=== PATIENT | male | born 1955 | race Caucasian/White ===

== ENCOUNTER 2017-10-03 16:31 | Emergency (ER) | payer OTHER ==
[2017-10-03 16:37] VITALS: TEMP 36.9
[2017-10-03] MEDS ORDERED: FRS/40 PO (17:35)
[2017-10-03] MEDS ORDERED: BISA1SUP4 RE (17:35)
[2017-10-03] MEDS ORDERED: SODIENE PR (17:35)
[2017-10-03] MEDS ORDERED: ACET-1256 PO (17:35)
[2017-10-03] MEDS ORDERED: SNTO30 TOP (17:35)
[2017-10-03] MEDS ORDERED: SENN-65 PO (17:35)
[2017-10-03] MEDS ORDERED: CEFT1INJ57 IV (17:35)
[2017-10-03] MEDS ORDERED: NSP500 PO (17:35)
[2017-10-03] MEDS ORDERED: LCTX PO (17:35)
[2017-10-03] MEDS ORDERED: INSDGI SC (17:35)
[2017-10-03] MEDS ORDERED: VANC1INJ94 IV (17:35)
[2017-10-03] MEDS ORDERED: CARV3.12 PO (17:35)
[2017-10-03] MEDS ORDERED: ASPCH81X PO (17:35)
[2017-10-03] MEDS ORDERED: DOCU100C31 PO (17:35)
[2017-10-03] MEDS ORDERED: PANT1TAB48 PO (17:35)
[2017-10-03] MEDS ORDERED: [UNRECOGNIZED DRUG - CODE] IV. (17:35)
[2017-10-03] MEDS ORDERED: NYSS/ PO (17:35)
[2017-10-03] MEDS ORDERED: ALBINS INH (17:35)
[2017-10-03] MEDS ORDERED: NVLGI/PEN SC ×2 (17:35)
[2017-10-03] MEDS ORDERED: POLY335019 PO (17:35)
[2017-10-03] MEDS ORDERED: DONE1TAB11 PO (17:35)
[2017-10-03] MEDS ORDERED: APIX1TAB3 PO (17:35)
[2017-10-03] MEDS ORDERED: MOMLX PO (17:35)
[2017-10-03 18:10] VITALS: BP 15/97; PULSE 58; O2SAT 98
--- NOTE | 2017-10-04 00:36 | EMERGENCY ROOM VISIT NOTE ---
ED Visit Note First contact with patient: 16:40 Chief Complaint: PICC line declogging. History of Present Illness: Mr. Welsh is a 62-year-old white male who is brought into the ED via wheelchair. Patient was transferred from [facility] for evaluation of his PICC line and a request to declog his PICC line. Patient reports he was receiving his antibiotics today and when completed nursing staff reported they were not able to aspirate any blood from the PICC line. He reports there was no complication when putting the medication into his PICC line. Currently patient has no other additional complaints. He denies fevers, chills, sweats, skin eruptions, skin color changes, headache, upper respiratory tract symptoms, cough, wheezing, shortness of breath, abdominal pain, nausea, vomiting, decreased appetite, urinary symptoms, diarrhea. Review of Systems: As noted above in history of present illness. 8 body systems were reviewed and found to be negative as noted above. Past Medical History: Genital debility and weakness, left hip dislocation, hypertension, ischemic cardiomyopathy, rhabdomyolysis, diabetes with diabetic retinopathy and chronic kidney disease, cholecystitis, atrial fibrillation, dyslipidemia, coronary artery disease with status post CABG and stent placement , dementia, C. difficile, oral thrush. Current Medications: Medications Dose Route/Sig Max Daily Dose Days Date Category Dose Instructions Santyl (Collagenase) 250 Unit/Gm Oin 1 Appln TOP DAILY 10/03/17 Reported AREA: BILAT INNER THIGHS. CLEANSE, APPLY THIN LAYER, COVER WITH FOAM. Albuterol Sulfate (Albuterol Sulf) 2.5 Mg/3 Ml Nebu 2.5 Mg INH Q4H 10/03/17 Reported Nystatin Suspension (Nystatin) 1 Ml Susp 500,000 Units PO QID 10/03/17 Reported STARTED 09/30/17 Fluconazole In Nacl 1 Inj Inj 200 Mg IV. DAILY 10/03/17 Reported STARTED 09/30/17, STOP 10/27/17. Lantus (Insulin Glargine) 100 Unit/Ml Inj 35 Units SC HS 10/03/17 Reported Lactinex (Lactobacillus Acidophilus) Tab 2 Tab PO BID 10/03/17 Reported Novolog Flexpen (Insulin Aspart) 100 Units/Ml Inj Unknown Dose SC ACHS 10/03/17 Reported SLIDING SCALE: BSG < 70 = HYPOGLYCEMIA PROTOCOL BSG 70-130 = 0 UNITS BSG 131-180 = 2 UNITS BSG 181-240 = 4 UNITS BSG 241-300 = 6 UNITS BSG 301-350 = 8 UNITS BSG 351-400 = 10 UNITS BSG > 400 = 12 UNITS AND CALL Tylenol (Acetaminophen) 500 Mg Tab 500 Mg PO Q4H PRN 10/03/17 Reported Miralax (Polyethylene Glycol 3350) 1 Pow Pow 17 Gm PO QDL PRN 10/03/17 Reported Senokot S (Senna/Docusate Sodium) 1 Tab Tab 1 Tab PO QDL PRN 10/03/17 Reported Fleet Enema (Sodium Phosphate/Biphosphate) Cleo 1 Ea ME DAILY PRN 10/03/17 Reported Bisacodyl Laxative (Bisacodyl) 10 Mg Sup 10 Mg RE DAILY PRN 10/03/17 Reported Milk of Magnesia (Magnesium Hydroxide) 30 Ml Susp 30 Ml PO DAILY PRN 10/03/17 Reported Docusate Sodium 100 Mg Cap 100 Mg PO BID 7 10/03/17 Reported Protonix (Pantoprazole) 40 Mg Tab 40 Mg PO DAILYBB 10/03/17 Reported VANCOMYCIN in NSS (Vancomycin HCl in Sodium Chlor) 1 Inj Inj 1 Gm IV DAILY QPM 10/03/17 Reported In 250 ml NSS, STARTED 09/29/17, STOP DATE 10/06/17. Niaspan Ext Rel (Niacin) 1,000 Mg Tabcr 1,000 Mg PO HS 10/03/17 Reported Rocephin (Ceftriaxone Sodium) 1 Gm Inj 2 Gm IV Q24H 10/03/17 Reported STARTED 09/29/17, STOP DATE 10/05/17. Coreg (Carvedilol) 3.125 Mg Tab 3.125 Mg PO BIDM 10/03/17 Reported Eliquis (Apixaban) 5 Mg Tab 5 Mg PO Q12 10/03/17 Reported Novolog Flexpen (Insulin Aspart) 100 Units/Ml Inj 4 Units SC TIDM 10/03/17 Reported Lasix (Furosemide) 40 Mg Tab 40 Mg PO QAM 10/03/17 Reported Donepezil Hcl (Donepezil Hydrochloride) 5 Mg Tab 5 Mg PO QAM 90 10/03/17 Reported Aspirin Chewable (Aspirin) 81 Mg Chew 81 Mg PO QAM 10/03/17 Reported Allergies to Medications: Augmentin. Social History: Patient is currently in a rehabilitation hospital; he denies tobacco and alcohol use. Physical Examination: Vital Signs: Date Time Temp Pulse Resp B/P (MAP) Pulse Ox O2 Delivery O2 Flow Rate FiO2 10/03/17 18:10 58 18 15/97 98 10/03/17 16:37 36.9 62 18 137/80 97 Room Air GENERAL: 62-year-old female in no acute distress, chronically ill-appearing, afebrile and hemodynamically stable. NEUROLOGICAL: Awake, alert and oriented to person, place and time. Answering questions appropriately and following commands. SKIN: Warm, dry and pale. HEENT: Atraumatic and normocephalic. PERRLA. Sclera white and conjunctiva pink. No drainage from naris. Airway patent. Speech is clear but slow. THORAX: Lungs sounds are clear to auscultation and mildly decrease in the bases. Equal bilaterally with symmetrical chest wall. No wheezing, rales or rhonchi. HEART: Regular rate and rhythm. No gallops, rubs or murmurs are appreciated. ABDOMEN: Obese, firm and nontender. Decreased bowel sounds in all quadrants. No guarding, rigidity or organomegaly. EXTREMITIES: Moves all extremities well on command and with purpose. All distal neurovascular statuses are intact and equal bilaterally. Bilateral dependent edema. No calf tenderness or cords. Over the right upper extremity is patient's PICC line. There is mild bruising of the skin around the entrance to the PICC line. ED Course: Patient is assessed as noted above. Patient's medication list was reviewed. The IV team was called to evaluate the PICC line; they reported the PICC line was patent and flushed with heparin. Patient was educated about today's findings. Patient was transferred back to [facility]. Clinical Impression: PICC line evaluation. Disposition: Patient transferred back to [facility]. Plan: [facility] was educated about today's findings. Was encouraged that the patient return emergency department as needed.
== END 2017-10-03 18:10 | disposition home or self-care (01) ==
LOC: C.EDB 16:31 → C.EDC 18:10
DX: Z45.2 Encounter for adjustment and management of vascular access device (principal); I12.9 Hypertensive chronic kidney disease with stage 1 through stage 4 chronic kidney disease, or unspecified chronic kidney disease; E11.22 Type 2 diabetes mellitus with diabetic chronic kidney disease; N18.9 Chronic kidney disease, unspecified; E11.319 Type 2 diabetes mellitus with unspecified diabetic retinopathy without macular edema; I48.91 Unspecified atrial fibrillation; I25.10 Atherosclerotic heart disease of native coronary artery without angina pectoris; Z95.1 Presence of aortocoronary bypass graft; Z98.61 Coronary angioplasty status; Z90.49 Acquired absence of other specified parts of digestive tract; F03.90 Unspecified dementia, unspecified severity, without behavioral disturbance, psychotic disturbance, mood disturbance, and anxiety; Z79.01 Long term (current) use of anticoagulants; Z79.4 Long term (current) use of insulin; Z79.82 Long term (current) use of aspirin; Z79.899 Other long term (current) drug therapy

== ENCOUNTER 2017-10-12 12:28 | Inpatient (IN) | payer OTHER ==
[~2017-10-12] VITALS: Ht 167.6 cm; Wt 126.6 kg
[~2017-10-12 12:28] MED LIST: ACET-1256 PO; ALBINS INH; APIX1TAB3 PO; ASPCH81X PO; BISA1SUP4 RE; CARV3.12 PO; CEFT1INJ57 IV; DOCU100C31 PO; DONE1TAB11 PO; FRS/40 PO; INSDGI SC; LCTX PO; MOMLX PO; NSP500 PO; NVLGI/PEN SC; NYSS/ PO; PANT1TAB48 PO; POLY335019 PO; SENN-65 PO; SNTO30 TOP; SODIENE PR; VANC1INJ94 IV; [UNRECOGNIZED DRUG - CODE] IV.
--- NOTE | 2017-10-12 12:42 | EMERGENCY ROOM VISIT NOTE ---
History Report prepared by Laura: Shanita Nelson Under the Supervision of: Dr. Santosh Anderson M.D. First contact with patient: 12:30 Stated Complaint: BREATHING DIFFICULTY History of Present Illness The patient is a 62 year old male who presents to the Emergency Room with complaints of worsening shortness of breath beginning 2 weeks ago. The patient states that he has also been wheezing. He also reports having swollen testicles. The patient reports that his ankles have been weeping and that his left arm sometimes does too. Per EMS, the patient was 100% on 2L of Oxygen. Per EMS, the patient does get short of breath when he starts talking. Per EMS, the patient was slightly confused. The patient states that he has been in [facility] for a week. The patient reports a history of cardiac arrest and a stent placed. Source of History: patient, EMS Onset: 2 weeks ago Position: other (global) Quality: other (shortness of breath ) Timing: worsening Note: additional symptoms: wheezing, swollen scrotum, weeping ankles and left arm Review of Systems All systems have been listed, reviewed, and are negative other than those previously mentioned. Please see Additional Medical History Sheet. Past Medical & Surgical Medical Problems: (1) Atrial fibrillation (2) Dementia (3) Diabetes (4) Fluid overload (5) Hyperlipidemia (6) Hypertension (7) Ischemic cardiomyopathy (8) Rhabdomyolysis (9) Scrotal edema Surgical Problems: (1) AICD (automatic cardioverter/defibrillator) present (2) Stented coronary artery Family History No pertinent family history stated. Social History Smoking Status: Former Smoker Housing Status: assisted living Current/Historical Medications Scheduled Albuterol Sulf (Albuterol Sulfate), 2.5 MG INH Q4H Apixaban (Eliquis), 5 MG PO Q12 Aspirin (Aspirin Chewable), 81 MG PO QAM Bumetanide (Bumex), 2 MG PO BID Carvedilol (Coreg), 3.125 MG PO BIDM Collagenase (Santyl), 1 APPLN TOP DAILY Docusate Sodium (Docusate Sodium), 100 MG PO BID Donepezil Hydrochloride (Donepezil Hcl), 5 MG PO QAM Fluconazole In Nacl (Fluconazole In Nacl), 200 MG IV. DAILY Insulin Aspart (Novolog Flexpen), 6 UNITS SC TIDM Insulin Aspart (Novolog Flexpen), Unknown Dose SC ACHS Insulin Glargine (Lantus), 40 UNITS SC HS Lactobacillus Acidophilus (Lactinex), 2 TAB PO BID Lidocaine (Lidoderm Patch 5%), 1 PATCH TOP QAM Niacin Ext Rel (Niaspan Ext Rel), 1,000 MG PO HS Nystatin (Nystatin Suspension), 500,000 UNITS PO QID Pantoprazole (Protonix), 40 MG PO DAILYBB Scheduled PRN Acetaminophen (Tylenol), 500 MG PO Q4H PRN for Pain or Fever Bisacodyl (Bisacodyl Laxative), 10 MG RE DAILY PRN for Constipation Magnesium Hydroxide (Milk of Magnesia), 30 ML PO DAILY PRN for Constipation Polyethylene Glycol 3350 (Miralax), 17 GM PO QDL PRN for Constipation Senna/Docusate Sod (Senokot S), 1 TAB PO QDL PRN for Constipation Sodium Phosphate/Biphosphate (Fleet Enema), 1 EA ID DAILY PRN for Constipation Allergies Coded Allergies: Amoxicillin (Verified Allergy, Unknown, UNKNOWN, 10/12/17) Clavulanic Acid (Verified Allergy, Unknown, UNKNOWN, 10/12/17) Physical Exam Vital Signs Date Time Temp Pulse Resp B/P (MAP) Pulse Ox O2 Delivery O2 Flow Rate FiO2 10/12/17 16:00 63 20 144/76 97 Room Air 10/12/17 13:50 67 24 136/79 93 Room Air 10/12/17 13:06 97 Room Air 10/12/17 13:03 36.5 66 22 130/83 97 Room Air 10/12/17 12:48 97 Room Air 10/12/17 12:42 65 Physical Exam GENERAL: Patient awake, alert, oriented x 3. Patient follows commands. Patient does not appear toxic. Patient is adequately hydrated and well- nourished. SKIN: No erythema, pallor, cyanosis or rash HEENT: Normal head, pupils equal, reactive to light and accommodation. Ears normal. Oral cavity and posterior pharynx appear normal. Neck: Without adenopathy, no neck vein distention. LUNGS: Bilateral wheezes right greater than left. No rales, no rhonchi. HEART: No murmurs. No gallops. Muffled heart sounds. ABDOMEN: No masses, no rebound, no hepatomegaly or splenomegaly. Erythema below umbilicus. Morbidly obese. Drain right upper quadrant. CHEST: Midline sternotomy scar. Pacemaker in left upper chest. EXTREMITIES: No signs of trauma. 4+ non-pitting pre-tibial edema. No calf or thigh tenderness. : Very edematous scrotum. NEUROLOGIC: Cranial nerves II-XII within normal limits. No gross motor sensory function deficits. Medical Decision & Procedures ER Provider Diagnostic Interpretation: Radiology results as stated below per my review and radiologist interpretation: CHEST ONE VIEW PORTABLE HISTORY: Short of breath. peripheral edema COMPARISON: None. FINDINGS: The heart is enlarged. Postoperative changes. Left-sided dual-chamber pacemaker. The tip of the right PICC is difficult to visualize due to motion artifact but likely resides within the SVC. Mild interstitial basilar thickening, right greater than left. This suggests developing asymmetric pulmonary edema. No pleural effusions. No pneumothorax. IMPRESSION: 1. Cardiomegaly with mild developing asymmetric pulmonary edema. 2. The tip of the right PICC is not well visualized due to motion artifact but likely resides within the SVC. Electronically signed by: Bud Cai M.D. 10/12/2017 2:17 PM Dictated Date/Time: 10/12/2017 2:15 PM Laboratory Results 10/12/17 13:30 Red Blood Count 3.03, Mean Corpuscular Volume 97.7, Mean Corpuscular Hemoglobin 30.4, Mean Corpuscular Hemoglobin Concent 31.1, Mean Platelet Volume 9.0, Neutrophils (%) (Auto) 65.7, Lymphocytes (%) (Auto) 20.8, Monocytes (%) (Auto) 8.2, Eosinophils (%) (Auto) 4.8, Basophils (%) (Auto) 0.2, Neutrophils # (Auto) 6.41, Lymphocytes # (Auto) 2.03, Monocytes # (Auto) 0.80, Eosinophils # (Auto) 0.47, Basophils # (Auto) 0.02 10/12/17 13:30 Test 10/12/17 13:30 White Blood Count 9.76 K/uL (4.8-10.8) Red Blood Count 3.03 M/uL (4.7-6.1) Hemoglobin 9.2 g/dL (14.0-18.0) Hematocrit 29.6 % (42-52) Mean Corpuscular Volume 97.7 fL (80-100) Mean Corpuscular Hemoglobin 30.4 pg (25-34) Mean Corpuscular Hemoglobin Concent 31.1 g/dl (32-36) Platelet Count 189 K/uL (130-400) Mean Platelet Volume 9.0 fL (7.4-10.4) Neutrophils (%) (Auto) 65.7 % Lymphocytes (%) (Auto) 20.8 % Monocytes (%) (Auto) 8.2 % Eosinophils (%) (Auto) 4.8 % Basophils (%) (Auto) 0.2 % Neutrophils # (Auto) 6.41 K/uL (1.4-6.5) Lymphocytes # (Auto) 2.03 K/uL (1.2-3.4) Monocytes # (Auto) 0.80 K/uL (0.11-0.59) Eosinophils # (Auto) 0.47 K/uL (0-0.5) Basophils # (Auto) 0.02 K/uL (0-0.2) RDW Standard Deviation 75.6 fL (36.4-46.3) RDW Coefficient of Variation 21.5 % (11.5-14.5) Immature Granulocyte % (Auto) 0.3 % Immature Granulocyte # (Auto) 0.03 K/uL (0.00-0.02) Nucleated RBC Absolute Count (auto) 0.05 K/uL (0-0) Nucleated Red Blood Cells % 0.5 % Anisocytosis PRESENT Prothrombin Time 14.3 SECONDS (9.0-12.0) Prothromb Time International Ratio 1.3 (0.9-1.1) Activated Partial Thromboplast Time 24.0 SECONDS (21.0-31.0) Partial Thromboplastin Ratio 0.9 Anion Gap 6.0 mmol/L (3-11) Est Creatinine Clear Calc Drug Dose 59.4 ml/min Estimated GFR () 49.0 Estimated GFR (Non- 42.3 BUN/Creatinine Ratio 32.1 (10-20) Calcium Level 8.6 mg/dl (8.5-10.1) Total Bilirubin 0.5 mg/dl (0.2-1) Aspartate Amino Transf (AST/SGOT) 24 U/L (15-37) Alanine Aminotransferase (ALT/SGPT) 21 U/L (12-78) Alkaline Phosphatase 158 U/L (45-117) Troponin I 0.038 ng/ml (0-0.045) Pro-B-Type Natriuretic Peptide 25950 pg/ml (0-900) Total Protein 6.8 gm/dl (6.4-8.2) Albumin 2.5 gm/dl (3.4-5.0) Globulin 4.3 gm/dl (2.5-4.0) Albumin/Globulin Ratio 0.6 (0.9-2) Laboratory results as stated above per my review. Medications Administered Medications (Trade) Dose Ordered Sig/Randa Route Start Time Stop Time Status Last Admin Dose Admin Heparin Sodium (Porcine) (Heparin 100 Unit/ml 5ml Flush) 5 ml STK-MED ONCE .ROUTE 10/12/17 13:15 10/12/17 13:16 DC 10/12/17 13:15 5 ML Heparin Sodium (Porcine) (Heparin 100 Unit/ml 5ml Flush) 5 ml STK-MED ONCE .ROUTE 10/12/17 13:40 10/12/17 13:41 DC 10/12/17 13:45 5 ML Furosemide (Lasix Inj) 80 mg STK-MED ONCE .ROUTE 10/12/17 13:40 10/12/17 13:41 DC 10/12/17 13:45 80 MG Morphine Sulfate (MoRPHine SULFATE INJ) 6 mg Q1H PRN IV 10/12/17 15:30 10/12/17 17:45 DC 10/12/17 16:01 6 MG Heparin Sodium (Porcine) (Heparin 100 Unit/ml 5ml Flush) 5 ml STK-MED ONCE .ROUTE 10/12/17 15:56 10/12/17 15:57 DC 10/12/17 15:56 5 ML ECG Indication: SOB/dyspnea Rate (beats per minute): 68 Rhythm: other (paced rhythm) Findings: nonspecific-ST abn, other (normal axis) ED Course 1232: Past medical records reviewed. The patient was evaluated in room C4. A complete history and physical examination was performed. 1315: Ordered Heparin Sodium (Porcine) 5 ml. 1340: Ordered Lasix Inj 80 mg, Heparin Sodium (Porcine) 5 ml. 1530: Ordered Morphine Sulfate 6 mg IV. 1546: Upon reevaluation, the patient is resting.I discussed today's findings with him. He verbalized agreement of the treatment plan. I spoke with Dr. Culver of the [facility] to evaluate the patient for further management. Medical Decision Nurses notes reviewed. Medical history sheet reviewed. Differential diagnosis includes but is not limited to: congestive heart failure, metabolic disorder, diabetes out of control, and pneumonia. The patient arrived with significant peripheral edema and scrotal edema. Multiple labs, EKG and imaging were obtained. Please see above. The patient has x-ray findings consistent with pulmonary edema. The patient is anemic. The patient was given IV Lasix. The patient will require further evaluation the hospital with IV diuretics. I discussed care with the patient and with the hospitalist. Medication Reconcilliation Current Medication List: was personally reviewed by me Blood Pressure Screening Patient's blood pressure: Normal blood pressure Consults Time Called: 1500 Consulting Physician: Dr. Culver- [place] Returned Call: [phone] Discussed the patient's case with Dr. Culver. The patient will be evaluated for further management. Impression Primary Impression: Pulmonary edema Scribe Attestation The scribe's documentation has been prepared under my direction and personally reviewed by me in its entirety. I confirm that the note above accurately reflects all work, treatment, procedures, and medical decision making performed by me. Departure Information Dispostion Being Evaluated By Hospitalist Referrals Raheem Richmond D.O. (PCP)
[2017-10-12] MEDS ORDERED: BUME2TAB3 PO (12:58)
[2017-10-12] MEDS ORDERED: NF656 TOP (12:58)
[2017-10-12] MEDS ORDERED: FUROSEMIDE INJ 80 MG in SYRINGE 0 ML IV ONE (13:30)
[2017-10-12] MEDS ORDERED: FUROSEMIDE 40 MG/4 ML VIAL ONE (13:40)
[2017-10-12 13:44] LABS: BASO % 0.2 %; BASO ABS # 0.02 K/uL (0-0.2); EOS % 4.8 %; HEMATOCRIT 29.6 % (42-52); IG% 0.3 %; LYMPH % 20.8 %; LYMPH ABS # 2.03 K/uL (1.2-3.4); MEAN CELL VOLUME 97.7 fL (80-100); MEAN CORPUSCULAR HEMOGLOBIN 30.4 pg (25-34); MEAN CORPUSCULAR HGB CONC 31.1 g/dl (32-36); MONO % 8.2 %; NEUT % 65.7 %; PLATELET COUNT 189 K/uL (130-400); RED BLOOD COUNT 3.03 M/uL (4.7-6.1); WHITE BLOOD COUNT 9.76 K/uL (4.8-10.8)
[2017-10-12 13:56] LABS: INR 1.3 (0.9-1.1); PARTIAL THROMBOPLASTIN RATIO 0.9; PROTHROMBIN TIME (PATIENT) 14.3 SECONDS (9.0-12.0)
[2017-10-12 14:00] LABS: BUN/CREATININE RATIO 32.1 (10-20); CALCIUM 8.6 mg/dl (8.5-10.1); CREATININE 1.69 mg/dl (0.60-1.40)
[2017-10-12 14:05] LABS: ALB/GLOB RATIO 0.6 (0.9-2)
[2017-10-12 14:12] LABS: ANISOCYTOSIS PRESENT; COMPLETE YES
--- NOTE | 2017-10-12 14:18 | DIAGNOSTIC IMAGING REPORT ---
CHEST ONE VIEW PORTABLE HISTORY: Short of breath. peripheral edema COMPARISON: None. FINDINGS: The heart is enlarged. Postoperative changes. Left-sided dual-chamber pacemaker. The tip of the right PICC is difficult to visualize due to motion artifact but likely resides within the SVC. Mild interstitial basilar thickening, right greater than left. This suggests developing asymmetric pulmonary edema. No pleural effusions. No pneumothorax. IMPRESSION: 1. Cardiomegaly with mild developing asymmetric pulmonary edema. 2. The tip of the right PICC is not well visualized due to motion artifact but likely resides within the SVC. Electronically signed by: Bud Cai M.D. 10/12/2017 2:17 PM Dictated Date/Time: 10/12/2017 2:15 PM
[2017-10-12] MEDS ORDERED: MoRPHine SULFATE 10 MG/ML CARP/VIAL IV PRN (15:30)
[2017-10-12] MEDS ORDERED: IV FLUIDS COMPLETED PRN (16:30)
[2017-10-12 17:02] LABS: URINE APPEARANCE CLEAR (CLEAR); URINE BILIRUBIN NEG (NEG); URINE COLOR YELLOW; URINE NITRITE NEG (NEG); URINE SPECIFIC GRAVITY 1.015 (1.000-1.030); UROBILINOGEN NEG (NEG); ZZUR CULT IF INDIC CLEAN CATCH NO
[2017-10-12 17:04] LABS: MANUAL MICROSCOPIC REQUIRED? NO; REVIEW REQ? NO
[2017-10-12] MEDS ORDERED: DOCUSATE SODIUM/SENNA 50/8.6MG TAB PO PRN (17:15)
[2017-10-12] MEDS ORDERED: POLYETHYLENE (MIRALAX) 17 GM PACK PO PRN (17:15)
[2017-10-12] MEDS ORDERED: MAGNESIUM HYDROXIDE SUSP 30 ML UDC PO PRN (17:15)
[2017-10-12] MEDS ORDERED: BISACODYL 10 MG SUPP PR PRN (17:15)
[2017-10-12] MEDS ORDERED: SOD PHOSPHATE/SOD BIPHOSPHATE ENEMA 132 ML BTL PR PRN (17:30)
--- NOTE | 2017-10-12 17:54 | DIAGNOSTIC IMAGING REPORT ---
VENOUS DOPPLER LWR EXT BILA HISTORY: Pain. Edema. bilateral lower extremity edema COMPARISON STUDY: None. FINDINGS: There is normal compressibility, flow, and augmentation within the bilateral lower extremity deep venous systems. IMPRESSION: No DVT within the right or left lower extremity. The above report was generated using voice recognition software. It may contain grammatical, syntax or spelling errors. Electronically signed by: Golden Machuca M.D. 10/12/2017 5:52 PM Dictated Date/Time: 10/12/2017 5:52 PM
--- NOTE | 2017-10-12 17:55 | DIAGNOSTIC IMAGING REPORT ---
(TESTICULAR) SCROTUM-CONT HISTORY: Pain. Edema. scrotal edema COMPARISON: None. FINDINGS: Right testis: Maximum dimension 3.8 cm. Normal vascular flow. Small hydrocele. Left testis: Maximum dimension 3.9 cm. Normal vascular flow. Small hydrocele. IMPRESSION: 1. Normal testes bilaterally. 2. Normal vascular flow to both testis. 3. Small bilateral hydroceles. The above report was generated using voice recognition software. It may contain grammatical, syntax or spelling errors. Electronically signed by: Golden Machuca M.D. 10/12/2017 5:54 PM Dictated Date/Time: 10/12/2017 5:53 PM
[2017-10-12] MEDS ORDERED: GLUCOSE 40% GEL 15 GM TUBE PO PRN ×2 (18:00→20:15)
[2017-10-12] MEDS ORDERED: GLUCOSE 10 TABS/TUBE PO PRN ×2 (18:00→20:15)
[2017-10-12] MEDS ORDERED: DEXTROSE 50% 50 ML SYR IV PRN ×2 (18:00→20:15)
[2017-10-12] MEDS ORDERED: GLUCAGON FOR INJ 1 MG VIAL SQ PRN ×2 (18:00→20:15)
[2017-10-12] MEDS: INSULIN ASPART 100 UNITS/ML 3 ML PEN SC SCH ×2 (18:35→21:00)
[2017-10-12] MEDS: CARVEDILOL 3.125 MG TAB PO SCH (18:35)
[2017-10-12] MEDS: FLUCONAZOLE / NSS 200 MG in PREMIXED NSS 100 ML IV SCH (18:36)
[2017-10-12 18:40] VITALS: BP 157/77; PULSE 68; TEMP 36.5; O2SAT 93; BMI 44.1
[2017-10-12 18:47] VITALS: O2SAT 94
--- NOTE | 2017-10-12 18:53 | History and Physical ---
History & Physical Date & Time of Service: Oct 12, 2017 at 18:48 Chief Complaint: Fluid Overload, Scrotal Edema Primary Care Physician: Raheem Richmond D.O. History of Present Illness Source: patient The patient is a 62-year-old male with an ischemic cardiomyopathy, ejection fraction 25% to 30%, who suffered a polymorphic ventricular tachycardia cardiac arrest while hospitalized to manage cholecystitis in [facility] and had implantation of a defibrillator subsequently during his hospitalization stay and workup in August 2017. Patient also s/p percutaneous drain of the gallbladder for the cholecystitis. As per family member, patient was supposed to get re-evaluated by outpatient cardiology to interrogate defibrillator before medical clearance for possible cholecystectomy. Patient continues to have the percutaneous drain. Patient also had subsequent medical evaluations at [facility] in [place] where patient had some form of scope down his throat as per patient and his family members for evaluation of chronic cough which is worsen by speaking. And more recently have been in rehab at [facility] where patient has been attempting ambulation with walker. As per review of [facility] records, patient was sent to the ER because of shortness of breath and also because of increased fluid overload of lower extremities and scrotal edema. When assessed in the ED, patient did not appear to have respiratory distress and speaking comfortably in full sentences. However, chest X ray shows Mild interstitial basilar thickening, right greater than left and radiographic impression of asymmetric pulmonary edema. Chest X ray also shows present of defibrillator and PICC line. However patient and patient's family primarily concerned of the swelling below the waist, the continued presence of the percutaneous drain, and general overall decline before previous hospitalization Past Medical/Surgical History Medical Problems: (1) Atrial fibrillation Status: Chronic (2) Dementia Status: Chronic (3) Diabetes Status: Chronic (4) Hyperlipidemia Status: Chronic (5) Hypertension Status: Chronic (6) Ischemic cardiomyopathy Status: Chronic (7) Rhabdomyolysis Status: Chronic Surgical Problems: (1) AICD (automatic cardioverter/defibrillator) present Status: Chronic (2) Stented coronary artery Status: Resolved Family History FH: CHF (congestive heart failure) FATHER Social History Smoking Status: Former Smoker Allergies Coded Allergies: Amoxicillin (Verified Allergy, Unknown, UNKNOWN, 10/12/17) Clavulanic Acid (Verified Allergy, Unknown, UNKNOWN, 10/12/17) Home Medications Scheduled Albuterol Sulf (Albuterol Sulfate), 2.5 MG INH Q4H Apixaban (Eliquis), 5 MG PO Q12 Aspirin (Aspirin Chewable), 81 MG PO QAM Bumetanide (Bumex), 2 MG PO BID Carvedilol (Coreg), 3.125 MG PO BIDM Collagenase (Santyl), 1 APPLN TOP DAILY Docusate Sodium (Docusate Sodium), 100 MG PO BID Donepezil Hydrochloride (Donepezil Hcl), 5 MG PO QAM Fluconazole In Nacl (Fluconazole In Nacl), 200 MG IV. DAILY Insulin Aspart (Novolog Flexpen), 6 UNITS SC TIDM Insulin Aspart (Novolog Flexpen), Unknown Dose SC ACHS Insulin Glargine (Lantus), 40 UNITS SC HS Lactobacillus Acidophilus (Lactinex), 2 TAB PO BID Lidocaine (Lidoderm Patch 5%), 1 PATCH TOP QAM Niacin Ext Rel (Niaspan Ext Rel), 1,000 MG PO HS Nystatin (Nystatin Suspension), 500,000 UNITS PO QID Pantoprazole (Protonix), 40 MG PO DAILYBB Scheduled PRN Acetaminophen (Tylenol), 500 MG PO Q4H PRN for Pain or Fever Bisacodyl (Bisacodyl Laxative), 10 MG RE DAILY PRN for Constipation Magnesium Hydroxide (Milk of Magnesia), 30 ML PO DAILY PRN for Constipation Polyethylene Glycol 3350 (Miralax), 17 GM PO QDL PRN for Constipation Senna/Docusate Sod (Senokot S), 1 TAB PO QDL PRN for Constipation Sodium Phosphate/Biphosphate (Fleet Enema), 1 EA AL DAILY PRN for Constipation Review of Systems Constitutional: No fever Eyes: No eye pain, No discharge ENT: No nasal symptoms, No sore throat, No trouble swallowing Respiratory: + cough, + shortness of breath, No sputum, No wheezing Cardiovascular: + edema, No chest pain, No palpitations Abdomen: No pain, No nausea, No vomiting, No diarrhea, No constipation Musculoskeletal: + swelling, No joint pain, No muscle pain, No calf pain Genitourinary - Male: No dysuria Neurologic: No paralysis Psychiatric: No substance abuse Endocrine: No fatigue Hematologic / Lymphatic: No abnormal bleeding/bruising Integumentary: No rash, No itch Physical Exam Vital Signs Date Time Temp Pulse Resp B/P (MAP) Pulse Ox O2 Delivery O2 Flow Rate FiO2 10/12/17 17:08 36.5 63 20 144/76 97 10/12/17 16:00 63 20 144/76 97 Room Air 10/12/17 13:50 67 24 136/79 93 Room Air 10/12/17 13:06 97 Room Air 10/12/17 13:03 36.5 66 22 130/83 97 Room Air 10/12/17 12:48 97 Room Air 10/12/17 12:42 65 General Appearance: no apparent distress, + obese Head: normocephalic, atraumatic Eyes: normal inspection, EOMI, sclerae normal ENT: normal ENT inspection, hearing grossly normal, pharynx normal Neck: supple, no JVD, trachea midline Respiratory/Chest: chest non-tender, lungs clear, no respiratory distress, no accessory muscle use Cardiovascular: regular rate, rhythm, no JVD Abdomen/GI: normal bowel sounds, non tender, soft, + pertinent finding ( percutanous drain over gallbladder area) Back: + pertinent finding (patient is very large and diifficulty to sit up or turn over for full skin exam of back) Extremities/Musculoskelatal: + pertinent finding (bilateral lower extremity edema and red rash on legs) Neurologic/Psych: alert, oriented x 3 Skin: + pertinent finding (bilateral lower extremity edema and red rash on legs ) Diagnostics Laboratory Results Results Past 24 Hours Test 10/12/17 13:30 10/12/17 16:52 Range/Units White Blood Count 9.76 4.8-10.8 K/uL Red Blood Count 3.03 4.7-6.1 M/uL Hemoglobin 9.2 14.0-18.0 g/dL Hematocrit 29.6 42-52 % Mean Corpuscular Volume 97.7 80-100 fL Mean Corpuscular Hemoglobin 30.4 25-34 pg Mean Corpuscular Hemoglobin Concent 31.1 32-36 g/dl Platelet Count 189 130-400 K/uL Mean Platelet Volume 9.0 7.4-10.4 fL Neutrophils (%) (Auto) 65.7 % Lymphocytes (%) (Auto) 20.8 % Monocytes (%) (Auto) 8.2 % Eosinophils (%) (Auto) 4.8 % Basophils (%) (Auto) 0.2 % Neutrophils # (Auto) 6.41 1.4-6.5 K/uL Lymphocytes # (Auto) 2.03 1.2-3.4 K/uL Monocytes # (Auto) 0.80 0.11-0.59 K/uL Eosinophils # (Auto) 0.47 0-0.5 K/uL Basophils # (Auto) 0.02 0-0.2 K/uL RDW Standard Deviation 75.6 36.4-46.3 fL RDW Coefficient of Variation 21.5 11.5-14.5 % Immature Granulocyte % (Auto) 0.3 % Immature Granulocyte # (Auto) 0.03 0.00-0.02 K/uL Nucleated RBC Absolute Count (auto) 0.05 0-0 K/uL Nucleated Red Blood Cells % 0.5 % Anisocytosis PRESENT Prothrombin Time 14.3 9.0-12.0 SECONDS Prothromb Time International Ratio 1.3 0.9-1.1 Activated Partial Thromboplast Time 24.0 21.0-31.0 SECONDS Partial Thromboplastin Ratio 0.9 Sodium Level 141 136-145 mmol/L Potassium Level 4.0 3.5-5.1 mmol/L Chloride Level 105 98-107 mmol/L Carbon Dioxide Level 30 21-32 mmol/L Anion Gap 6.0 3-11 mmol/L Blood Urea Nitrogen 54 7-18 mg/dl Creatinine 1.69 0.60-1.40 mg/dl Est Creatinine Clear Calc Drug Dose 59.4 ml/min Estimated GFR () 49.0 Estimated GFR (Non- 42.3 BUN/Creatinine Ratio 32.1 10-20 Random Glucose 91 70-99 mg/dl Calcium Level 8.6 8.5-10.1 mg/dl Total Bilirubin 0.5 0.2-1 mg/dl Aspartate Amino Transf (AST/SGOT) 24 15-37 U/L Alanine Aminotransferase (ALT/SGPT) 21 12-78 U/L Alkaline Phosphatase 158 45-117 U/L Troponin I 0.038 0-0.045 ng/ml Pro-B-Type Natriuretic Peptide 06317 0-900 pg/ml Total Protein 6.8 6.4-8.2 gm/dl Albumin 2.5 3.4-5.0 gm/dl Globulin 4.3 2.5-4.0 gm/dl Albumin/Globulin Ratio 0.6 0.9-2 Urine Color YELLOW Urine Appearance CLEAR CLEAR Urine pH 5.0 4.5-7.5 Urine Specific [place] 1.015 1.000-1.030 Urine Protein NEG NEG Urine Glucose (UA) NEG NEG Urine Ketones NEG NEG Urine Occult Blood NEG NEG Urine Nitrite NEG NEG Urine Bilirubin NEG NEG Urine Urobilinogen NEG NEG Urine Leukocyte Esterase NEG NEG Diagnostic Radiology CXR The heart is enlarged. Postoperative changes. Left-sided dual-chamber pacemaker. The tip of the right PICC is difficult to visualize due to motion artifact but likely resides within the SVC. Mild interstitial basilar thickening , right greater than left. This suggests developing asymmetric pulmonary edema. No pleural effusions. No pneumothorax Scrotal ultrasound 1. Normal testes bilaterally. 2. Normal vascular flow to both testis. 3. Small bilateral hydroceles. Lower extremity ultrasound No DVT within the right or left lower extremity EKG 68 beats per minute Probable Atrial fibrillation Low voltage QRS Impression Assessment and Plan The patient is a 62-year-old male with an ischemic cardiomyopathy, ejection fraction 25% to 30%, who suffered a polymorphic ventricular tachycardia cardiac arrest while hospitalized to manage cholecystitis in [facility] and had implantation of a defibrillator subsequently during his hospitalization stay and workup in August 2017. Patient also s/p percutaneous drain of the gallbladder for the cholecystitis. As per family member, patient was supposed to get re-evaluated by outpatient cardiology to interrogate defibrillator before medical clearance for possible cholecystectomy. Patient continues to have the percutaneous drain. Patient also had subsequent medical evaluations at [facility] in [place] where patient had some form of scope down his throat as per patient and his family members for evaluation of chronic cough which is worsen by speaking. And more recently have been in rehab at [facility] where patient has been attempting ambulation with walker. As per review of [facility] records, patient was sent to the ER because of shortness of breath and also because of increased fluid overload of lower extremities and scrotal edema. When assessed in the ED, patient did not appear to have respiratory distress and speaking comfortably in full sentences. However, chest X ray shows Mild interstitial basilar thickening, right greater than left and radiographic impression of asymmetric pulmonary edema. Chest X ray also shows present of defibrillator and PICC line. However patient and patient's family primarily concerned of the swelling below the waist, the continued presence of the percutaneous drain, and general overall decline before previous hospitalization Plan: Pulmonary edema?: perhaps from CHF, no fevers and may not be a pneumonia, send procalcitonin to rule out pneumonia, no antibiotics for now, patient breathing on room air comfortably Lower extremity edema: DVT ruled out by ultrasound Scrotal edema, ultrasound performed Fluid overload treatment: IV Lasix 80 mg x 1 given in the ER, will continue IV Lasix as 40 mg IV BID, replete electrolytes while on IV Lasix, hold home dose oral diuretics daily weights: as per [facility] records, patient's weights fluctuating between 305 to 310 kilograms history ischemic cardiomyopathy, ejection fraction 25% to 30%, repeat TTE, continue home dose aspirin and carvedilol morbid obesity with cardiac disease (history of CABG/stent), give heart healthy , low salt diet, fluid restriction, diabetes diet monitor on telemetry because of history of cardiac arrest may need cardiology involved for interrogation of defibrillator while in the hospital vs outpatient History of cholecystitis: percutaneous drain of the gallbladder is in place. As per family member, patient was supposed to get re-evaluated by outpatient cardiology to interrogate defibrillator before medical clearance for possible cholecystectomy History of atrial fibrillation on outpatient Apixaban (Eliquis) 5 mg q12 hours ( might have been on Xarelto in the past), continue Apixaban Diabetes: continue with home dosed Lantus, give sliding scale coverage based on fingerstick glucose On donepezil at [facility] for dementia but patient appears to be alert and not mentally impaired, continue donepezil As per [facility] records, patient has been on Nystatin 5 ml QID PO and Diflucan 200 mg IV daily starting 09/30/17; this is unclear whether this is for oral rick versus fungemia elsewhere especially because of presence of percutaneous drainage from gallbladder, Dr. Caldwell will need to call [facility] for the medical indications of this treatment History of C.difficile as per [facility] records, but appears no longer to be on C.diff medications and no diarrhea complaints Patient reports history of ulcers on back and require would care, topical collagenase, and being turned over by nursing to prevent more pressure ulcers DVT prophylaxis: continue outpatient medication of Apixaban (Eliquis) 5 mg q12 hours Disposition: Patient to be further managed by Dr. Caldwell. Patient will need PT/ OT, likely return to [facility] for further rehab when medically cleared Level of Care Telemetry VTE Prophylaxis VTE Risk Assessment Done? Y/N: Yes Risk Level: Moderate Given or contraindicated: Other Anticoagulation (apixaban)
[2017-10-12 19:33] VITALS: PULSE 82; O2SAT 95
[2017-10-12] MEDS: ALBUTEROL 0.083% NEBU SOLN 3 ML VIAL INH SCH ×2 (19:33→23:33)
[2017-10-12] MEDS: FUROSEMIDE INJ 40 MG in SYRINGE 0 ML IV SCH (20:50)
[2017-10-12] MEDS: DOCUSATE SODIUM 100 MG CAP PO SCH (20:53)
[2017-10-12] MEDS: NYSTATIN SUSP 500,000 U/5 ML UDC PO SCH (20:53)
[2017-10-12] MEDS: LACTOBACILLUS ACIDOPHILUS (FLORANEX) TAB PO SCH (20:53)
[2017-10-12] MEDS: APIXABAN 2.5 MG TAB PO SCH (20:53)
[2017-10-12] MEDS: NIASPAN 500 MG TABCR PO SCH (20:54)
[2017-10-12] MEDS: INSULIN GLARGINE SOLOSTAR 100 UNITS/ML 3 ML PEN SC SCH (20:56)
[2017-10-12] MEDS: ACETAMINOPHEN 500 MG TAB PO PRN (21:06)
[2017-10-12] MEDS ORDERED: HEPARIN SOD 5000 UNIT/0.5 ML CARP SQ SCH (22:00)
[2017-10-12 23:30] VITALS: BP 139/59; PULSE 61; TEMP 36.6; O2SAT 94
[2017-10-12 23:33] VITALS: PULSE 68; O2SAT 95
[2017-10-13] VITALS (18 sets, daily range): BP systolic 109–154; BP diastolic 61–76; PULSE 60–86; TEMP 36.5–36.6; O2SAT 91–99; Ht 167.6 cm; Wt 126.6 kg
[2017-10-13] MEDS: ALBUTEROL 0.083% NEBU SOLN 3 ML VIAL INH SCH ×6 (04:00→23:02)
[2017-10-13] MEDS: PANTOprazole SOD 40 MG TAB PO SCH (05:32)
[2017-10-13 06:00] LABS: BASO % 0.2 %; BASO ABS # 0.02 K/uL (0-0.2); EOS % 7.2 %; HEMATOCRIT 27.6 % (42-52); IG% 0.2 %; LYMPH % 21.1 %; LYMPH ABS # 1.84 K/uL (1.2-3.4); MEAN CELL VOLUME 99.3 fL (80-100); MEAN CORPUSCULAR HEMOGLOBIN 29.5 pg (25-34); MEAN CORPUSCULAR HGB CONC 29.7 g/dl (32-36); MEAN PLATELET VOLUME 8.3 fL (7.4-10.4); MONO % 8.2 %; NEUT % 63.1 %; PLATELET COUNT 171 K/uL (130-400); RED BLOOD COUNT 2.78 M/uL (4.7-6.1); WHITE BLOOD COUNT 8.74 K/uL (4.8-10.8)
[2017-10-13 06:40] LABS: BUN/CREATININE RATIO 30.1 (10-20); CALCIUM 8.2 mg/dl (8.5-10.1); CREATININE 1.62 mg/dl (0.60-1.40); MAGNESIUM 1.8 mg/dl (1.8-2.4); POTASSIUM 3.7 mmol/L (3.5-5.1)
[2017-10-13 06:43] LABS: ALB/GLOB RATIO 0.6 (0.9-2)
[2017-10-13 06:48] LABS: ANISOCYTOSIS PRESENT; COMPLETE YES
[2017-10-13] MEDS: INSULIN ASPART 100 UNITS/ML 3 ML PEN SC SCH ×5 (07:00→21:27)
--- NOTE | 2017-10-13 08:32 | ECHOCARDIOGRAM REPORT ---
*NOTICE TO RECEIVING LIBERTARIAN AGENCY This information is strictly Confidential and protected under [place] law. [place] law prohibits you from making any further disclosure of this information unless further disclosure is expressly permitted by the written consent of the person to whom it pertains or is authorized by law. A general authorization for the release of medical or other information is not sufficient for this purpose. Hospital accepts no responsibility if the information is made available to any other person, INCLUDING THE PATIENT. Interpretation Summary * Name: FRANCISCA MORALES Study Date: 10/13/2017 06:44 AM BP: 109/66 mmHg * Patient Location: C.2E\S\E206\S\1 HR: 63 * : 1955 (M/d/yyyy) Gender: Male Height: 65 in * Age: 62 yrs Ethnicity: [place] Weight: 306 lb * Ordering Physician: Vitaliy Culver * Referring Physician: Julianna Oquendo * Performed By: Emily Hollis RDCS * * Reason For Study: Fluid overload of extremities and scrotal edema * BSA: 2.4 m2 * -- Conclusions -- * The left ventricle is severely dilated. * Ejection Fraction = 35-40%. * The right ventricle is grossly normal size. * The right ventricular systolic function is normal. * Pulmonary hypertension. Estimated pulmonary systolic pressure around 50-55 mmHG. * There is moderate mitral regurgitation. * There is moderate tricuspid regurgitation. Procedure Details * A complete two-dimensional transthoracic echocardiogram was performed (2D, M-mode, Doppler and color flow Doppler). * The study was technically difficult. * The study was technically difficult, but visualization was adequate with the administration of Definity ultrasound contrast. * There were technical limitations due to patient'sbody habitus * A contrast injection of Definity was performed to improve assessment of LV function. * Contrast was injected into an intravenous site in the right arm. * Lot # [id number] of Definity utilized for procedure. * Expiration date 1DEC18. * The attending nurse who injected the contrast agent was Kalpana Romero RN. Left Ventricle * The left ventricle is severely dilated. * There is mild concentric left ventricular hypertrophy. * Ejection Fraction = 35-40%. Right Ventricle * There is a pacemaker lead in the right ventricle. * The right ventricle is grossly normal size. * The right ventricular systolic function is normal. * Pulmonary hypertension. Estimated pulmonary systolic pressure around 50-55 mmHG. Atria * The left atrium is moderately dilated. * The right atrium is moderately dilated. Mitral Valve * The mitral valve anatomy is normal. * There is moderate mitral regurgitation. Tricuspid Valve * The tricuspid valve anatomy is normal. * There is moderate tricuspid regurgitation. Aortic Valve * The aortic valve is normal in structure and function. Great Vessels * The aortic root and proximal ascending aorta are normal sized. Pericardium/Pleural * There is no pericardial effusion. MMode 2D Measurements and Calculations IVSd 1.2 cm IVSs 1.3 cm LVIDd 6.7 cm LVIDs 5.5 cm LVPWd 1.1 cm LVPWs 1.3 cm IVS/LVPW 1.1 FS 17.6 % EDV(Teich) 230.5 ml ESV(Teich) 148.3 ml EF(Teich) 35.7 % EDV(cubed) 299.3 ml ESV(cubed) 167.6 ml EF(cubed) 44.0 % % IVS thick 7.8 % % LVPW thick 19.2 % LV mass(C)d 349.0 grams LV mass(C)dI 147.3 grams/m\S\2 LV mass(C)s 299.7 grams LV mass(C)sI 126.4 grams/m\S\2 SV(Teich) 82.3 ml SI(Teich) 34.7 ml/m\S\2 SV(cubed) 131.7 ml SI(cubed) 55.6 ml/m\S\2 Ao root diam 3.0 cm Ao root area 7.3 cm\S\2 ACS 2.3 cm LA dimension 4.6 cm LA/Ao 1.5 LVAd ap4 35.3 cm\S\2 LVLd ap4 8.7 cm EDV(MOD-sp4) 124.8 ml EDV(sp4-el) 121.9 ml LVAs ap4 26.3 cm\S\2 LVLs ap4 7.9 cm ESV(MOD-sp4) 77.9 ml ESV(sp4-el) 74.9 ml EF(MOD-sp4) 37.6 % EF(sp4-el) 38.6 % LVAd ap2 24.2 cm\S\2 LVLd ap2 7.9 cm EDV(MOD-sp2) 64.6 ml EDV(sp2-el) 63.2 ml LVAs ap2 16.2 cm\S\2 LVLs ap2 6.8 cm ESV(MOD-sp2) 36.2 ml ESV(sp2-el) 33.1 ml EF(MOD-sp2) 44.0 % EF(sp2-el) 47.6 % LVLd %diff -10.11 % EDV(MOD-bp) 93.2 ml LVLs %diff -16.35 % ESV(MOD-bp) 56.9 ml EF(MOD-bp) 38.9 % SV(MOD-sp4) 46.9 ml SI(MOD-sp4) 19.8 ml/m\S\2 SV(MOD-sp2) 28.4 ml SI(MOD-sp2) 12.0 ml/m\S\2 SV(MOD-bp) 36.3 ml SI(MOD-bp) 15.3 ml/m\S\2 SV(sp4-el) 47.1 ml SI(sp4-el) 19.9 ml/m\S\2 SV(sp2-el) 30.1 ml SI(sp2-el) 12.7 ml/m\S\2 Doppler Measurements and Calculations MV E max rosario 58.3 cm/sec MV A max rosario 40.8 cm/sec MV E/A 1.4 MV dec time 0.20 sec Ao V2 max 75.1 cm/sec Ao max PG 2.3 mmHg Ao max PG (full) 0.29 mmHg LV V1 max PG 2.0 mmHg LV V1 max 70.1 cm/sec PA V2 max 87.1 cm/sec PA max PG 3.0 mmHg PI max rosario 154.9 cm/sec PI max PG 9.6 mmHg PI dec slope 143.8 cm/sec\S\2 PI P1/2t 315.5 msec TR max rosario 301.7 cm/sec
[2017-10-13] MEDS: FUROSEMIDE INJ 40 MG in SYRINGE 0 ML IV SCH ×2 (08:42→21:19)
[2017-10-13] MEDS: CARVEDILOL 3.125 MG TAB PO SCH ×2 (08:42→17:15)
[2017-10-13] MEDS: COLLAGENASE OINT 30 GM TUBE EXT SCH (08:42)
[2017-10-13] MEDS: DONEPEZIL HCL 5 MG TAB PO SCH (08:43)
[2017-10-13] MEDS: LACTOBACILLUS ACIDOPHILUS (FLORANEX) TAB PO SCH ×2 (08:43→21:22)
[2017-10-13] MEDS: NYSTATIN SUSP 500,000 U/5 ML UDC PO SCH ×4 (08:43→21:19)
[2017-10-13] MEDS: DOCUSATE SODIUM 100 MG CAP PO SCH ×3 (08:43→21:18)
[2017-10-13] MEDS: APIXABAN 2.5 MG TAB PO SCH ×2 (08:44→21:19)
[2017-10-13] MEDS: ASPIRIN 81 MG CHEW PO SCH (08:44)
[2017-10-13] MEDS: LIDODERM (LIDOCAINE) PATCH 5% TD SCH (08:46)
--- NOTE | 2017-10-13 09:25 | Progress Note ---
Internal Med Progress Note Date of Service: Oct 13, 2017. Provider Documentation: SUBJECTIVE: Seen and examined at bedside States having SOB with minimal exertion, dry cough Denies chest pain, nausea, vomiting, dizziness, abd pain, diarrhea Had PT this morning Also denies Dysphagia, odynophagia No other complaints OBJECTIVE: Vital Signs-as noted below Physical Exam: General Appearance:Obese, no apparent distress Head: normocephalic, Atraumatic Eyes: normal inspection, EOMI, PERRL Neck: supple, Trachea midline Respiratory/Chest:Decreased breath sounds, CTA Cardiovascular: S1, S2, No murmur Abdomen/GI:Soft, +Distended, Non tender, + percutaneous drain RUQ, Bowel sounds present : scrotal swelling Extremities/Musculoskelatal:normal inspection, B/L LE edema, +Bandage Neurologic/Psych:AAOX3, grossly no focal neurological deficits Skin: normal color, warm Lab data as noted below. ASSESSMENT & PLAN: Acute on chronic CHF exacerbation s/p ICD H/O Ischemic Cardiomyopathy ECHO: EF: 35-40% as below CXR:Cardiomegaly with mild developing asymmetric pulmonary edema Elevated BNP Venous Doppler: No DVT Reports dry cough, no fever/leukocytosis, no Abx for now Saturating well on room air I/0s, daily weight, sodium and fluid restriction Continue IV Lasix Monitor electrolytes Cardiology consulted Saturating well on room air Scrotal swelling: Small bilateral hydroceles Oxygen support PRN Continue coreg Was not on NELY/ARBs ?? secondary to CKD Requested for Interrogation of ICD CAD S/P CABG Denies chest pain continue Aspirin, BB Not on stains at home H/O cholecystitis: S/P percutaneous drain Needs follow up with surgery as outpatient for cholecystectomy as outpatient Denies abd pain Monitor LFTs H/O atrial fibrillation: Rate controlled Continue Coreg continue Apixaban for anticoagulation DM II: Continue ISS, Lantus Monitor BS levels CKD III: Cr:mid 2s at baseline Cr:1.62 Monitor renal function ? Dementia: Continue home dose of donepezil Oral Thrush: Was on Nystatin 5 ml QID PO and Diflucan 200 mg IV daily prior to admission started on 09/30/17 Discussed with (Physician at [facility]) Patient denies dysphagia/odynophagia Plan to DC Nystatin, Diflucan after completing 2 week course H/O C.diff: No on any meds prior to admission recheck stool for c.diff denies diarrhea, abd pain B/L Leg wounds Wound care consulted Morbid Obesity: BMI:44.2 DVT px: on Apixaban Disposition: Plan to discharge to [facility] when medically cleared PROCEDURES: ECHO: * The left ventricle is severely dilated. * Ejection Fraction = 35-40%. * The right ventricle is grossly normal size. * The right ventricular systolic function is normal. * Pulmonary hypertension. Estimated pulmonary systolic pressure around 50- 55 mmHG. * There is moderate mitral regurgitation. * There is moderate tricuspid regurgitation. Vital Signs: Date Time Temp Pulse Resp B/P (MAP) Pulse Ox O2 Delivery O2 Flow Rate FiO2 10/13/17 08:00 95 Room Air 10/13/17 07:44 36.5 78 18 154/67 (96) 97 2.0 10/13/17 07:25 63 26 95 Nasal Cannula 2.0 10/13/17 04:00 Room Air 10/13/17 03:40 36.5 62 16 109/66 (80) 98 Nasal Cannula 3.0 10/13/17 03:30 67 18 95 Nasal Cannula 2.0 10/12/17 23:59 Room Air 10/12/17 23:33 68 18 95 Room Air 10/12/17 23:30 36.6 61 21 139/59 (85) 94 Room Air 10/12/17 20:00 Room Air 10/12/17 19:33 82 18 95 Room Air 10/12/17 18:47 94 Room Air 10/12/17 18:40 36.5 68 22 157/77 93 Room Air 10/12/17 17:08 36.5 63 20 144/76 97 10/12/17 16:00 63 20 144/76 97 Room Air 10/12/17 13:50 67 24 136/79 93 Room Air 10/12/17 13:06 97 Room Air 10/12/17 13:03 36.5 66 22 130/83 97 Room Air 10/12/17 12:48 97 Room Air 10/12/17 12:42 65 Lab Results: Results Past 24 Hours Test 10/12/17 13:30 10/12/17 16:52 10/12/17 18:30 10/12/17 20:01 Range/Units White Blood Count 9.76 4.8-10.8 K/uL Red Blood Count 3.03 4.7-6.1 M/uL Hemoglobin 9.2 14.0-18.0 g/dL Hematocrit 29.6 42-52 % Mean Corpuscular Volume 97.7 80-100 fL Mean Corpuscular Hemoglobin 30.4 25-34 pg Mean Corpuscular Hemoglobin Concent 31.1 32-36 g/dl Platelet Count 189 130-400 K/uL Mean Platelet Volume 9.0 7.4-10.4 fL Neutrophils (%) (Auto) 65.7 % Lymphocytes (%) (Auto) 20.8 % Monocytes (%) (Auto) 8.2 % Eosinophils (%) (Auto) 4.8 % Basophils (%) (Auto) 0.2 % Neutrophils # (Auto) 6.41 1.4-6.5 K/uL Lymphocytes # (Auto) 2.03 1.2-3.4 K/uL Monocytes # (Auto) 0.80 0.11-0.59 K/uL Eosinophils # (Auto) 0.47 0-0.5 K/uL Basophils # (Auto) 0.02 0-0.2 K/uL RDW Standard Deviation 75.6 36.4-46.3 fL RDW Coefficient of Variation 21.5 11.5-14.5 % Immature Granulocyte % (Auto) 0.3 % Immature Granulocyte # (Auto) 0.03 0.00-0.02 K/uL Nucleated RBC Absolute Count (auto) 0.05 0-0 K/uL Nucleated Red Blood Cells % 0.5 % Anisocytosis PRESENT Prothrombin Time 14.3 9.0-12.0 SECONDS Prothromb Time International Ratio 1.3 0.9-1.1 Activated Partial Thromboplast Time 24.0 21.0-31.0 SECONDS Partial Thromboplastin Ratio 0.9 Sodium Level 141 136-145 mmol/L Potassium Level 4.0 3.5-5.1 mmol/L Chloride Level 105 98-107 mmol/L Carbon Dioxide Level 30 21-32 mmol/L Anion Gap 6.0 3-11 mmol/L Blood Urea Nitrogen 54 7-18 mg/dl Creatinine 1.69 0.60-1.40 mg/dl Est Creatinine Clear Calc Drug Dose 59.4 ml/min Estimated GFR () 49.0 Estimated GFR (Non- 42.3 BUN/Creatinine Ratio 32.1 10-20 Random Glucose 91 70-99 mg/dl Calcium Level 8.6 8.5-10.1 mg/dl Total Bilirubin 0.5 0.2-1 mg/dl Aspartate Amino Transf (AST/SGOT) 24 15-37 U/L Alanine Aminotransferase (ALT/SGPT) 21 12-78 U/L Alkaline Phosphatase 158 45-117 U/L Troponin I 0.038 0-0.045 ng/ml Pro-B-Type Natriuretic Peptide 37074 0-900 pg/ml Total Protein 6.8 6.4-8.2 gm/dl Albumin 2.5 3.4-5.0 gm/dl Globulin 4.3 2.5-4.0 gm/dl Albumin/Globulin Ratio 0.6 0.9-2 Urine Color YELLOW Urine Appearance CLEAR CLEAR Urine pH 5.0 4.5-7.5 Urine Specific [place] 1.015 1.000-1.030 Urine Protein NEG NEG Urine Glucose (UA) NEG NEG Urine Ketones NEG NEG Urine Occult Blood NEG NEG Urine Nitrite NEG NEG Urine Bilirubin NEG NEG Urine Urobilinogen NEG NEG Urine Leukocyte Esterase NEG NEG Bedside Glucose 105 115 70-99 mg/dl Test 10/13/17 05:31 10/13/17 06:29 Range/Units White Blood Count 8.74 4.8-10.8 K/uL Red Blood Count 2.78 4.7-6.1 M/uL Hemoglobin 8.2 14.0-18.0 g/dL Hematocrit 27.6 42-52 % Mean Corpuscular Volume 99.3 80-100 fL Mean Corpuscular Hemoglobin 29.5 25-34 pg Mean Corpuscular Hemoglobin Concent 29.7 32-36 g/dl Platelet Count 171 130-400 K/uL Mean Platelet Volume 8.3 7.4-10.4 fL Neutrophils (%) (Auto) 63.1 % Lymphocytes (%) (Auto) 21.1 % Monocytes (%) (Auto) 8.2 % Eosinophils (%) (Auto) 7.2 % Basophils (%) (Auto) 0.2 % Neutrophils # (Auto) 5.51 1.4-6.5 K/uL Lymphocytes # (Auto) 1.84 1.2-3.4 K/uL Monocytes # (Auto) 0.72 0.11-0.59 K/uL Eosinophils # (Auto) 0.63 0-0.5 K/uL Basophils # (Auto) 0.02 0-0.2 K/uL RDW Standard Deviation 77.3 36.4-46.3 fL RDW Coefficient of Variation 21.7 11.5-14.5 % Immature Granulocyte % (Auto) 0.2 % Immature Granulocyte # (Auto) 0.02 0.00-0.02 K/uL Nucleated RBC Absolute Count (auto) 0.04 0-0 K/uL Nucleated Red Blood Cells % 0.4 % Anisocytosis PRESENT Sodium Level 143 136-145 mmol/L Potassium Level 3.7 3.5-5.1 mmol/L Chloride Level 106 98-107 mmol/L Carbon Dioxide Level 30 21-32 mmol/L Anion Gap 7.0 3-11 mmol/L Blood Urea Nitrogen 49 7-18 mg/dl Creatinine 1.62 0.60-1.40 mg/dl Est Creatinine Clear Calc Drug Dose 58.1 ml/min Estimated GFR () 51.6 Estimated GFR (Non- 44.5 BUN/Creatinine Ratio 30.1 10-20 Random Glucose 61 70-99 mg/dl Calcium Level 8.2 8.5-10.1 mg/dl Magnesium Level 1.8 1.8-2.4 mg/dl Total Bilirubin 0.5 0.2-1 mg/dl Aspartate Amino Transf (AST/SGOT) 19 15-37 U/L Alanine Aminotransferase (ALT/SGPT) 19 12-78 U/L Alkaline Phosphatase 136 45-117 U/L Total Protein 6.2 6.4-8.2 gm/dl Albumin 2.3 3.4-5.0 gm/dl Globulin 3.9 2.5-4.0 gm/dl Albumin/Globulin Ratio 0.6 0.9-2 Bedside Glucose 76 70-99 mg/dl Microbiology Results 10/12/17 MRSA DNA Surveillance Screen - Final, Complete Specimen Negative for MRSA by DNA Probe
[2017-10-13] MEDS ORDERED: SPIRONOLACTONE 25 MG TAB PO ONE (10:30)
--- NOTE | 2017-10-13 11:08 | CARDIOLOGY CONSULTATION ---
DATE OF CONSULTATION: 10/13/2017 REFERRING PHYSICIAN[facility] REASON FOR CONSULTATION: Heart failure. HISTORY OF PRESENT ILLNESS: This is a 62-year-old male patient with a history of ischemic cardiomyopathy and an estimated left ventricular ejection fraction around 25%-30%. He is status post coronary artery bypass surgery in 2003 and received stents in 2004. He has a history of diabetes with chronic kidney disease, morbid obesity with obstructive sleep apnea, early dementia, Leiden factor V deficiency on chronic anticoagulation and hypertension. Sometime in August, he presented to [facility] with right upper quadrant discomfort and bradycardia. He was sent to [facility], where he was found to have acute cholecystitis. There were plans for cholecystectomy, but prior to that surgery, he had a cardiac arrest. He was worked up with a cardiac catheterization, which showed significant coronary artery disease, but the need for medical management. He developed acute on chronic renal failure. He had a prolonged hospital stay at [facility] and a cholecystectomy was put off until a later date. He did receive a ICD during his admission at [facility]. He was then transferred to [facility], where he has been convalescing. He was transferred to [facility] from [facility] due to evidence of edema. Upon presentation here, he is massively volume overloaded and then heart failure with associated chronic renal failure. The patient is sitting comfortably in a chair. He is able to answer questions and has no general complaints this morning. ALLERGIES: AMOXICILLIN AND CLAVULANIC ACID. PAST MEDICAL HISTORY: As outlined above, the patient has ischemic heart disease with ischemic cardiomyopathy and chronic systolic heart failure. His last estimated left ventricular ejection fraction was around 25%-30%. In 2003, he underwent coronary artery bypass surgery and then in 2004, received coronary stents. I do not have the most recent record of his cardiac catheterization while in [place], but according to the notes, he was found to have significant coronary artery disease recently that was deemed medical management only. After his cardiac arrest at [facility], he received an ICD. He has been treated for diabetes, hypertension and hyperlipidemia. He has Leiden factor V deficiency and is on chronic anticoagulation. He has diabetes with diabetic nephropathy, history of hypertension and dyslipidemia. He is listed as having early dementia, but when I interviewed him today, he was alert and oriented x3. FAMILY MEDICAL HISTORY: Noncontributory. SOCIAL HISTORY: The patient is a former smoker. REVIEW OF SYSTEMS: A 10-point review of systems is negative except for the history of chief complaint. PHYSICAL EXAMINATION: GENERAL: He is alert and oriented. He is morbidly obese and sitting in a chair. VITAL SIGNS: Blood pressure is 140/70 and pulse is regular at 70 beats per minute. He is afebrile. HEENT: He is normocephalic. Pupils are equal and reactive to light. Extraocular muscles are intact bilaterally. NECK: The neck veins are flat. Carotids have good upstrokes bilaterally without bruits. Thyroid is nonpalpable. RESPIRATORY: Breath sounds are equal. The patient has rales at the base of his lungs and rhonchi. CARDIOVASCULAR: Heart has a regular rhythm. No systolic murmurs. No S3 or S4. GASTROINTESTINAL: Abdomen is obese, soft, and nontender without organomegaly. EXTREMITIES: Have edema x4. NEUROLOGIC: Grossly intact. SKIN: Warm to touch. LYMPH NODES: Negative to palpation. LABORATORY DATA: Hemoglobin is 9.2 on admission. Potassium is 4.0. Creatinine is 1.69. BUN is 54. IMPRESSION: 1. Acute on chronic systolic heart failure. 2. Ischemic cardiomyopathy. 3. Cardiorenal syndrome with diabetic nephropathy. 4. Diabetes mellitus. 5. Previous coronary artery bypass and coronary stents. 6. Obesity with sleep apnea. RECOMMENDATIONS: The patient will have to be diuresed and I would continue the Lasix 40 mg twice daily to see what his response is. He may ultimately benefit from the addition of Aldactone. I will give him a single dose today; however, I do want to start him on Entresto and I will not continue this medication after today. He will be started on Entresto, the reduced dose to be titrated per response. I think it would also be beneficial for us to have nephrology see him because as we diurese him, I suspect that his renal function is not going to improve, but may ultimately get worse because of the dilutional effect on his creatinine.
[2017-10-13] MEDS: ACETAMINOPHEN 500 MG TAB PO PRN (14:12)
--- NOTE | 2017-10-13 15:49 | NEPHROLOGY CONSULTATION ---
DATE OF CONSULTATION: 10/13/2017 DATE OF CONSULTATION: 10/13/2017 REFERRING PHYSICIAN: [facility] hospitalist and solution consultant. REASON FOR CONSULT: Chronic kidney disease with cardiorenal syndrome. HISTORY OF PRESENT ILLNESS: The patient is a 62-year-old male with a history of severe ischemic cardiomyopathy with left ventricular ejection fraction of around 25%. He also has a significant history of kidney disease with both CKD at baseline, but also in the recent past, he has had numerous episodes of acute renal failure with a creatinine as high as 5. The patient was brought to the hospital from [facility] because of massive lower extremity edema which according to the family has been increasing as well as scrotal edema. According to the who seems extremely knowledgeable and accurate with all the history of the patient including the creatinine, weight, diuretics dosing and I would absolutely trust the patient and his . He most recently had a hospital admission at [facility] for cholecystitis. He had a percutaneous drain. He also had a defibrillator implanted. The patient still has a percutaneous drain. The patient has always been on some dose of diuretics. According to the he was on 120 daily of Lasix and metolazone 3 times a week for more than 8 years. This dose was very stable until July 2017 when he started having multiple problems and with that the diuretics dosing has been all over the place. It appears he was getting Bumex 2 mg twice daily at the [facility]. The patient has some shortness of breath but he definitely has massive lower extremity edema, anasarca. BNP is elevated. Chest x-ray shows some pulmonary edema. He has already been seen by cardiology. So far, he has received 80 mg of IV Lasix yesterday and then 40 this morning and with that he has made 675 mL of urine yesterday and 1025 today. He has also been given 1 dose of spironolactone as well as started on Entresto by cardiology. As for Lasix he is written to have 40 mg IV twice daily. PAST MEDICAL AND SURGICAL HISTORY: Chronic atrial fibrillation, type 2 diabetes with nephropathy, hyperlipidemia, hypertension, ischemic cardiomyopathy with an EF of 25%. Recent history of acute renal failure with a peak creatinine of 5, status post AICD, coronary artery disease with stenting, recent placement of percutaneous drain at the gallbladder for acute cholecystitis, chronic kidney disease previously stage III, but more recently worse. FAMILY HISTORY: Positive for congestive heart failure, smoking positive in the past. ALLERGIES: AMOXICILLIN AND CLAVULANIC ACID. MEDICATIONS: Most recent medication list from [facility] was reviewed in detail. With special interest of nephrology he is getting Bumex 2 mg twice daily. REVIEW OF SYSTEMS: No fever, no eye pain, no discharge. He does have cough. He does have shortness of breath. He does have orthopnea. He has significant lower extremity edema all the way extending to upper thigh as well as lower abdomen. No chest pain, no palpitation. Abdomen -- No nausea, vomiting, or diarrhea. He does not have any dysuria or hematuria. PHYSICAL EXAMINATION: GENERAL APPEARANCE: Alert and oriented, he is morbidly obese and he is lying in the bed at 30 degree angle. VITAL SIGNS: Blood pressure is 144/74, 98% on room air. HEAD, EYES, EARS, NOSE, AND THROAT: Normocephalic, atraumatic. NECK: Veins hard to assess given his short obese neck. RESPIRATORY: Bilateral crackles at the bases as well as occasional rhonchi. CARDIOVASCULAR: Regular rhythm, no murmurs, rubs or gallop. ABDOMEN: Obese, soft. He does have abdominal wall edema. EXTREMITIES: 4+ edema extending all the way to the upper thigh as well as abdomen. LABORATORY DATA: Sodium 143, potassium 3.7, BUN 49, creatinine 1.6, calcium 8.2. ProBNP about 20,000. Chest x-ray shows pulmonary edema. Venous Doppler looks negative. ASSESSMENT AND PLAN: 1. Acute on chronic systolic heart failure, decompensated. 2. Chronic kidney disease stage III with very fluctuating baseline creatinine in the last few months secondary to intermittent acute illnesses. 3. Recent acute renal failure with a peak creatinine of 5, obesity with sleep apnea. RECOMMENDATIONS: At this time, patient clearly has anasarca. He has 4+ lower extremity edema in legs as well as extending all the way to his scrotum and abdomen. He definitely needs to be diuresed aggressively. I would aim for at least 2 liter negative per day. I do not think we are achieving quite that much with the current dose of Lasix 40 IV twice daily. He was already getting Bumex 2 mg twice daily, so the current dose is not a whole lot more than that. I would recommend to increase her dose of Lasix to 80 mg IV twice daily. I would hold off on the Aldactone for the time being. He has been started on Entresto also so it may be too much to start all of the medication as well as aggressive diuresis at the same time. We can do a stepwise approach with diuresis first and then using other drugs. Continue daily labs. The current creatinine of 1.6 is misleading. His true creatinine is much higher. He has significant dilutional effect with anasarca and I expect the creatinine to go higher as we diurese, but that is acceptable and permissible. MTDD
[2017-10-13] MEDS: FLUCONAZOLE / NSS 200 MG in PREMIXED NSS 100 ML IV SCH (19:55)
[2017-10-13] MEDS: SACUBITRIL-VALSARTAN 24-26 MG TAB PO SCH (21:20)
[2017-10-13] MEDS: NIASPAN 500 MG TABCR PO SCH (21:21)
[2017-10-13] MEDS: INSULIN GLARGINE SOLOSTAR 100 UNITS/ML 3 ML PEN SC SCH (21:28)
[2017-10-13] MEDS: MoRPHine SULFATE 2 MG/ML CARP IV PRN (23:34)
[2017-10-14] VITALS (16 sets, daily range): BP systolic 117–153; BP diastolic 56–68; PULSE 60–105; TEMP 36.4–36.9; O2SAT 89–100
[2017-10-14] MEDS: ALBUTEROL 0.083% NEBU SOLN 3 ML VIAL INH SCH ×6 (03:21→23:02)
[2017-10-14 05:58] LABS: HEMATOCRIT 29.6 % (42-52); MEAN CELL VOLUME 100.3 fL (80-100); MEAN CORPUSCULAR HEMOGLOBIN 29.8 pg (25-34); MEAN CORPUSCULAR HGB CONC 29.7 g/dl (32-36); MEAN PLATELET VOLUME 8.4 fL (7.4-10.4); PLATELET COUNT 168 K/uL (130-400); RED BLOOD COUNT 2.95 M/uL (4.7-6.1); WHITE BLOOD COUNT 9.92 K/uL (4.8-10.8)
[2017-10-14] MEDS: PANTOprazole SOD 40 MG TAB PO SCH (06:04)
[2017-10-14 06:31] LABS: BUN/CREATININE RATIO 27.4 (10-20); CALCIUM 8.1 mg/dl (8.5-10.1); CREATININE 1.66 mg/dl (0.60-1.40); MAGNESIUM 1.8 mg/dl (1.8-2.4); POTASSIUM 3.9 mmol/L (3.5-5.1)
[2017-10-14] MEDS: BOOST VANILLA PUDDING CUP PO SCH ×2 (08:36→16:34)
[2017-10-14] MEDS: ASPIRIN 81 MG CHEW PO SCH (08:36)
[2017-10-14] MEDS: FUROSEMIDE INJ 40 MG in SYRINGE 0 ML IV SCH ×2 (08:36→19:49)
[2017-10-14] MEDS: DOCUSATE SODIUM 100 MG CAP PO SCH ×2 (08:36→19:49)
[2017-10-14] MEDS: NYSTATIN SUSP 500,000 U/5 ML UDC PO SCH ×3 (08:36→16:35)
[2017-10-14] MEDS: LACTOBACILLUS ACIDOPHILUS (FLORANEX) TAB PO SCH ×2 (08:36→19:50)
[2017-10-14] MEDS: APIXABAN 2.5 MG TAB PO SCH ×2 (08:36→19:50)
[2017-10-14] MEDS: DONEPEZIL HCL 5 MG TAB PO SCH (08:37)
[2017-10-14] MEDS: CARVEDILOL 3.125 MG TAB PO SCH ×2 (08:37→16:35)
[2017-10-14] MEDS: SACUBITRIL-VALSARTAN 24-26 MG TAB PO SCH ×2 (08:37→19:51)
[2017-10-14] MEDS: LIDODERM (LIDOCAINE) PATCH 5% TD SCH (08:38)
[2017-10-14] MEDS: INSULIN ASPART 100 UNITS/ML 3 ML PEN SC SCH ×4 (08:45→20:37)
[2017-10-14] MEDS: COLLAGENASE OINT 30 GM TUBE EXT SCH (08:45)
[2017-10-14] MEDS ORDERED: SPIRONOLACTONE 25 MG TAB PO SCH (09:00)
--- NOTE | 2017-10-14 09:45 | Progress Note ---
Internal Med Progress Note Date of Service: Oct 14, 2017. Provider Documentation: SUBJECTIVE: Seen and examined at bedside Feels better today Ambulating better Reports dry cough Less SOB No diarrhea Denies chest pain, nausea, vomiting, dizziness, abd pain No other complaints OBJECTIVE: Vital Signs-as noted below Physical Exam: General Appearance:Obese, no apparent distress Head: normocephalic, Atraumatic Eyes: normal inspection, EOMI, PERRL Neck: supple, Trachea midline Respiratory/Chest:Decreased breath sounds, CTA Cardiovascular: S1, S2, No murmur Abdomen/GI:Soft, +Distended, Non tender, + percutaneous drain RUQ, Bowel sounds present : scrotal swelling Extremities/Musculoskelatal:normal inspection, B/L LE edema, +Bandage Neurologic/Psych:AAOX3, grossly no focal neurological deficits Skin: normal color, warm Lab data as noted below. ASSESSMENT & PLAN: Anasarca Acute on chronic CHF exacerbation s/p ICD H/O Ischemic Cardiomyopathy ECHO: EF: 35-40% as below CXR:Cardiomegaly with mild developing asymmetric pulmonary edema BNP trending down Venous Doppler: No DVT Reports dry cough, no fever/leukocytosis, no Abx for now Incentive Spirometry Encouraged to ambulate Saturating well on room air I/0s, daily weight, sodium and fluid restriction Continue IV Lasix per Cardiology/Nephrology Monitor electrolytes Appreciate Cardiology/Nephrology Input Scrotal swelling: Small bilateral hydroceles Oxygen support PRN Continue coreg Also started on Entresto Interrogation of ICD done CAD S/P CABG Denies chest pain continue Aspirin, BB Not on stains at home H/O cholecystitis: S/P percutaneous drain Needs follow up with surgery as outpatient for cholecystectomy as outpatient Denies abd pain Monitor LFTs H/O atrial fibrillation: Rate controlled Continue Coreg continue Apixaban for anticoagulation DM II: Continue ISS, Lantus Monitor BS levels CKD III: Cr:mid 2s at baseline Cr:1.62>>1.66 Cr low likely secondary to dilutional from anasarca Monitor renal function ? Dementia: Continue home dose of donepezil Oral Thrush: Was on Nystatin 5 ml QID PO and Diflucan 200 mg IV daily prior to admission started on 09/30/17 Discussed with (Physician at [facility]) Patient denies dysphagia/odynophagia To complete 2 week course of Nystatin, Diflucan H/O C.diff: No on any meds prior to admission recheck stool for c.diff if diarrhea denies diarrhea, abd pain B/L Leg wounds Wound care consulted Morbid Obesity: BMI:44.2 DVT px: on Apixaban Disposition: Plan to discharge to [facility] when medically cleared PROCEDURES: ECHO: * The left ventricle is severely dilated. * Ejection Fraction = 35-40%. * The right ventricle is grossly normal size. * The right ventricular systolic function is normal. * Pulmonary hypertension. Estimated pulmonary systolic pressure around 50- 55 mmHG. * There is moderate mitral regurgitation. * There is moderate tricuspid regurgitation. Vital Signs: Date Time Temp Pulse Resp B/P (MAP) Pulse Ox O2 Delivery O2 Flow Rate FiO2 10/14/17 08:04 36.5 65 24 147/66 (93) 100 Nasal Cannula 3.0 10/14/17 08:00 94 Room Air 10/14/17 07:21 105 20 95 Nasal Cannula 3.0 10/14/17 04:00 97 Nasal Cannula 2.0 10/14/17 03:21 62 20 97 Nasal Cannula 2.0 10/14/17 02:46 36.5 62 16 130/68 (88) 97 Nasal Cannula 10/13/17 23:59 97 Nasal Cannula 2.0 10/13/17 23:17 36.6 60 16 134/61 (85) 97 Nasal Cannula 1.5 10/13/17 23:02 60 20 96 Nasal Cannula 2.0 10/13/17 20:00 95 Nasal Cannula 2.0 10/13/17 19:50 36.5 71 20 148/65 (92) 94 Nasal Cannula 2.0 10/13/17 19:10 77 20 92 Nasal Cannula 2.0 10/13/17 16:25 94 Nasal Cannula 2.0 10/13/17 16:00 91 Nasal Cannula 2.0 10/13/17 15:42 36.6 62 22 150/76 (100) 99 Nasal Cannula 2.0 10/13/17 14:27 68 22 98 Room Air 10/13/17 12:00 94 Room Air 10/13/17 11:42 36.6 72 20 144/74 (97) 96 10/13/17 11:24 86 24 95 Room Air Lab Results: Results Past 24 Hours Test 10/13/17 11:19 10/13/17 16:17 10/13/17 20:18 10/14/17 05:35 Range/Units Bedside Glucose 158 224 190 70-99 mg/dl White Blood Count 9.92 4.8-10.8 K/uL Red Blood Count 2.95 4.7-6.1 M/uL Hemoglobin 8.8 14.0-18.0 g/dL Hematocrit 29.6 42-52 % Mean Corpuscular Volume 100.3 80-100 fL Mean Corpuscular Hemoglobin 29.8 25-34 pg Mean Corpuscular Hemoglobin Concent 29.7 32-36 g/dl RDW Standard Deviation 76.8 36.4-46.3 fL RDW Coefficient of Variation 21.5 11.5-14.5 % Platelet Count 168 130-400 K/uL Mean Platelet Volume 8.4 7.4-10.4 fL Nucleated RBC Absolute Count (auto) 0.07 0-0 K/uL Nucleated Red Blood Cells % 0.7 % Sodium Level 138 136-145 mmol/L Potassium Level 3.9 3.5-5.1 mmol/L Chloride Level 102 98-107 mmol/L Carbon Dioxide Level 28 21-32 mmol/L Anion Gap 8.0 3-11 mmol/L Blood Urea Nitrogen 46 7-18 mg/dl Creatinine 1.66 0.60-1.40 mg/dl Est Creatinine Clear Calc Drug Dose 57.3 ml/min Estimated GFR () 50.1 Estimated GFR (Non- 43.2 BUN/Creatinine Ratio 27.4 10-20 Random Glucose 142 70-99 mg/dl Calcium Level 8.1 8.5-10.1 mg/dl Magnesium Level 1.8 1.8-2.4 mg/dl Pro-B-Type Natriuretic Peptide 44829 0-900 pg/ml Test 10/14/17 07:17 Range/Units Bedside Glucose 129 70-99 mg/dl
--- NOTE | 2017-10-14 12:24 | Cardiology Follow-Up ---
Subjective Subjective Date of Service: Oct 14, 2017. Pt evaluation today including: conversation w/ patient, physical exam, chart review, lab review, review of studies, review of inpatient medication list Additional Details: Pt seen and examined, states that he's feeling better from admission. Nursing reports improved ambulation this AM. States breathing not back to baseline yet and still with significant edema but improved. Denies cp, palpitations, lightheadedness or dizziness. Tele reviewed: sinus rhythm without arrhythmia or significant ectopy Problem List Medical Problems: (1) Pulmonary edema Status: Acute Review of Systems Respiratory: + shortness of breath, + dyspnea on exertion, No see HPI, No cough , No sputum, No wheezing, No dyspnea at rest, No hemoptysis, No problem reported Cardiac: + edema, No see HPI, No chest pain, No orthopnea, No PND, No claudication, No palpitations, No problem reported Abdomen: + pain Objective Vital Signs Last Vital Signs Documentation Date Time Temp Pulse Resp B/P (MAP) Pulse Ox O2 Delivery O2 Flow Rate FiO2 10/14/17 11:18 61 20 94 Nasal Cannula 3.0 10/14/17 08:04 36.5 147/66 (93) Physical Exam: General Appearance: WD/WN, no apparent distress, + obese, + pertinent finding ( anasarca) Eyes: bilateral eyes normal inspection, bilateral eyes PERRL, bilateral eyes EOMI ENT: normal ENT inspection, hearing grossly normal, pharynx normal Neck: supple, no adenopathy, thyroid normal, no JVD, no carotid bruits, trachea midline Respiratory/Chest: chest non-tender, no respiratory distress, no accessory muscle use, + decreased breath sounds, + crackles Cardiovascular: regular rate, rhythm (but distant, unable to appreciate murmurs rubs or gallops) Abdomen: + distended, + tenderness Extremities: + pedal edema (profound, legs wrapped) Neurologic/Psychiatric: back tender cylinder II-XII nml as tested, no motor/sensory deficits, alert, normal mood/affect, oriented x 3 Skin: normal color, warm/dry, no rash Lymphatic: no adenopathy Assessment and Plan 1. profound volume overload improving appreciate nephrology input output has not reached goal set as of yet will defer diuretic management to our nephrology colleagues 2. ischemic cardiomyopathy stable already on evidence based beta yaz entresto initiated, so far, tolerating well will hold of on spironolactone for now cont to monitor on tele
[2017-10-14] MEDS: ACETAMINOPHEN 500 MG TAB PO PRN ×2 (14:33→23:54)
[2017-10-14] MEDS: NIASPAN 500 MG TABCR PO SCH (19:51)
[2017-10-14] MEDS: INSULIN GLARGINE SOLOSTAR 100 UNITS/ML 3 ML PEN SC SCH (20:51)
[2017-10-15] VITALS (13 sets, daily range): BP systolic 129–184; BP diastolic 58–95; PULSE 64–98; TEMP 36.3–37.1; O2SAT 85–96
[2017-10-15] MEDS ORDERED: HYDROCODONE/HOMATROPINE SYRUP 5MG/1.5MG 5ML UDP PO STA (02:59)
[2017-10-15] MEDS: ALBUTEROL 0.083% NEBU SOLN 3 ML VIAL INH SCH ×5 (03:33→23:55)
[2017-10-15] MEDS: PANTOprazole SOD 40 MG TAB PO SCH (05:28)
[2017-10-15 06:28] LABS: HEMATOCRIT 30.1 % (42-52); MEAN CELL VOLUME 98.4 fL (80-100); MEAN CORPUSCULAR HEMOGLOBIN 29.4 pg (25-34); MEAN CORPUSCULAR HGB CONC 29.9 g/dl (32-36); PLATELET COUNT 175 K/uL (130-400); RED BLOOD COUNT 3.06 M/uL (4.7-6.1); WHITE BLOOD COUNT 9.98 K/uL (4.8-10.8)
[2017-10-15 06:58] LABS: BUN/CREATININE RATIO 27.2 (10-20); CREATININE 1.62 mg/dl (0.60-1.40); MAGNESIUM 1.8 mg/dl (1.8-2.4); POTASSIUM 3.5 mmol/L (3.5-5.1)
--- NOTE | 2017-10-15 07:12 | DIAGNOSTIC IMAGING REPORT ---
[facility] PORTABLE CLINICAL HISTORY: worsening cough cough. Dyspnea. COMPARISON STUDY: 10/12/2017 FINDINGS: Moderate cardiomegaly. Prior median sternotomy. Bipolar cardiac pacemaker. Prominent pulmonary vasculature. PICC catheter remains in the superior vena cava. IMPRESSION: Congestive failure versus mild pulmonary edema The above report was generated using voice recognition software. It may contain grammatical, syntax or spelling errors. Electronically signed by: Golden Machuca M.D. 10/15/2017 7:11 AM Dictated Date/Time: 10/15/2017 7:10 AM
[2017-10-15] MEDS: BOOST VANILLA PUDDING CUP PO SCH ×2 (07:30→16:45)
[2017-10-15] MEDS: INSULIN ASPART 100 UNITS/ML 3 ML PEN SC SCH ×4 (08:44→20:21)
[2017-10-15] MEDS: FUROSEMIDE INJ 40 MG in SYRINGE 0 ML IV SCH (08:46)
[2017-10-15] MEDS: COLLAGENASE OINT 30 GM TUBE EXT SCH (08:46)
[2017-10-15] MEDS: DONEPEZIL HCL 5 MG TAB PO SCH (08:47)
[2017-10-15] MEDS: DOCUSATE SODIUM 100 MG CAP PO SCH ×2 (08:47→20:18)
[2017-10-15] MEDS: SACUBITRIL-VALSARTAN 24-26 MG TAB PO SCH (08:47)
[2017-10-15] MEDS: APIXABAN 2.5 MG TAB PO SCH ×2 (08:47→20:19)
[2017-10-15] MEDS: ASPIRIN 81 MG CHEW PO SCH (08:47)
[2017-10-15] MEDS: LIDODERM (LIDOCAINE) PATCH 5% TD SCH (08:48)
[2017-10-15] MEDS: LACTOBACILLUS ACIDOPHILUS (FLORANEX) TAB PO SCH ×2 (08:48→20:20)
--- NOTE | 2017-10-15 08:54 | Progress Note ---
Internal Med Progress Note Date of Service: Oct 15, 2017. Provider Documentation: SUBJECTIVE: Seen and examined at bedside Has intermittent cough with clear sputum Repeat CXR suggestive of CHF Less SOB Denies chest pain, nausea, vomiting, dizziness, abd pain No other complaints OBJECTIVE: Vital Signs-as noted below Physical Exam: General Appearance:Obese, no apparent distress Head: normocephalic, Atraumatic Eyes: normal inspection, EOMI, PERRL Neck: supple, Trachea midline Respiratory/Chest:Decreased breath sounds, CTA Cardiovascular: S1, S2, No murmur Abdomen/GI:Soft, +Distended, Non tender, + percutaneous drain RUQ, Bowel sounds present : scrotal swelling Extremities/Musculoskelatal:normal inspection, B/L LE edema, +Bandage Neurologic/Psych:AAOX3, grossly no focal neurological deficits Skin: normal color, warm Lab data as noted below. ASSESSMENT & PLAN: Anasarca Acute on chronic CHF exacerbation s/p ICD H/O Ischemic Cardiomyopathy ECHO: EF: 35-40% as below CXR:Congestive failure versus mild pulmonary edema BNP trending down Venous Doppler: No DVT Reports cough, no fever/leukocytosis, no Abx for now Incentive Spirometry Encouraged to ambulate Saturating well on room air I/0s, daily weight, sodium and fluid restriction Continue IV Lasix Monitor electrolytes Got ICD Interrogation Appreciate Cardiology/Nephrology Input Scrotal swelling: Small bilateral hydroceles Oxygen support PRN Continue coreg, Entresto CAD S/P CABG Denies chest pain continue Aspirin, BB Not on stains at home H/O cholecystitis: S/P percutaneous drain Needs follow up with surgery as outpatient for cholecystectomy as outpatient Denies abd pain Monitor LFTs H/O atrial fibrillation: Rate controlled Continue Coreg continue Apixaban for anticoagulation DM II: Continue ISS, Lantus Monitor BS levels CKD III: Cr:mid 2s at baseline Cr:1.62>>1.66>>1.62 Cr low likely secondary to dilutional from anasarca Monitor renal function ? Dementia: Continue home dose of donepezil Oral Thrush: Was on Nystatin 5 ml QID PO and Diflucan 200 mg IV daily prior to admission started on 09/30/17 Discussed with (Physician at [facility]) Patient denies dysphagia/odynophagia Completed 2 week course of Nystatin, Diflucan H/O C.diff: No on any meds prior to admission Stool for c.diff: pending B/L Leg wounds Wound care consulted Morbid Obesity: BMI:44.2 DVT px: on Apixaban Disposition: Plan to discharge to [facility] when medically cleared PROCEDURES: ECHO: * The left ventricle is severely dilated. * Ejection Fraction = 35-40%. * The right ventricle is grossly normal size. * The right ventricular systolic function is normal. * Pulmonary hypertension. Estimated pulmonary systolic pressure around 50- 55 mmHG. * There is moderate mitral regurgitation. * There is moderate tricuspid regurgitation. Venous Doppler: No DVT within the right or left lower extremity CXR: Congestive failure versus mild pulmonary edema Testicular USD: 1. Normal testes bilaterally. 2. Normal vascular flow to both testis. 3. Small bilateral hydroceles. Vital Signs: Date Time Temp Pulse Resp B/P (MAP) Pulse Ox O2 Delivery O2 Flow Rate FiO2 10/15/17 08:21 36.6 74 20 169/69 (102) 96 Room Air 10/15/17 07:08 70 20 94 Room Air 10/15/17 04:00 94 Room Air 10/15/17 03:33 64 21 94 Room Air 10/15/17 02:41 36.4 69 20 129/58 (81) 95 Room Air 10/15/17 00:01 94 Room Air 10/14/17 23:41 36.4 65 22 138/64 (88) 94 Room Air 10/14/17 23:03 61 20 94 Room Air 10/14/17 20:00 94 Room Air 10/14/17 19:20 36.9 60 24 139/61 (87) 98 Room Air 10/14/17 19:20 70 20 97 Room Air 10/14/17 17:10 89 Room Air 10/14/17 16:00 95 Room Air 10/14/17 15:35 36.4 66 21 153/66 (95) 92 Room Air 10/14/17 14:28 71 20 95 Nasal Cannula 3.0 10/14/17 12:00 96 Room Air 10/14/17 12:00 62 20 117/56 (76) 96 Room Air 10/14/17 11:18 61 20 94 Nasal Cannula 3.0 Lab Results: Results Past 24 Hours Test 10/14/17 11:23 10/14/17 16:30 10/14/17 20:19 10/15/17 06:06 Range/Units Bedside Glucose 174 105 119 70-99 mg/dl White Blood Count 9.98 4.8-10.8 K/uL Red Blood Count 3.06 4.7-6.1 M/uL Hemoglobin 9.0 14.0-18.0 g/dL Hematocrit 30.1 42-52 % Mean Corpuscular Volume 98.4 80-100 fL Mean Corpuscular Hemoglobin 29.4 25-34 pg Mean Corpuscular Hemoglobin Concent 29.9 32-36 g/dl RDW Standard Deviation 74.9 36.4-46.3 fL RDW Coefficient of Variation 21.5 11.5-14.5 % Platelet Count 175 130-400 K/uL Mean Platelet Volume 8.0 7.4-10.4 fL Nucleated RBC Absolute Count (auto) 0.03 0-0 K/uL Nucleated Red Blood Cells % 0.3 % Sodium Level 140 136-145 mmol/L Potassium Level 3.5 3.5-5.1 mmol/L Chloride Level 103 98-107 mmol/L Carbon Dioxide Level 30 21-32 mmol/L Anion Gap 7.0 3-11 mmol/L Blood Urea Nitrogen 44 7-18 mg/dl Creatinine 1.62 0.60-1.40 mg/dl Est Creatinine Clear Calc Drug Dose 61.2 ml/min Estimated GFR () 51.6 Estimated GFR (Non- 44.5 BUN/Creatinine Ratio 27.2 10-20 Random Glucose 73 70-99 mg/dl Calcium Level 8.0 8.5-10.1 mg/dl Magnesium Level 1.8 1.8-2.4 mg/dl Test 10/15/17 07:19 Range/Units Bedside Glucose 71 70-99 mg/dl Microbiology Results 10/15/17 C.difficile Toxin B Gene (PCR), Received Pending
[2017-10-15] MEDS ORDERED: POTASSIUM CHLORIDE 20 MEQ TABCR PO STA (09:13)
--- NOTE | 2017-10-15 09:44 | PROGRESS NOTE ---
DATE: 10/15/2017 FOLLOWUP VISIT SUBJECTIVE: The patient is a 62-year-old with a history of ischemic cardiomyopathy and an estimated left ventricular ejection fraction of 25%-30%. This patient was transferred from [facility] to [facility] with acute cholecystitis and bradycardia. He had a cardiac arrest prior to his surgery. The patient underwent cardiac catheterization that showed no significant coronary artery disease that needed to be treated with intervention and medical therapy was recommended. He developed ATN with renal failure and had [place] [facility] Essentially, he had a drain placed in his gallbladder and he was sent to [facility] for rehabilitation. He also had an ICD implanted before his discharge from [facility] for secondary prevention. He has been at [facility] for several weeks. He was scheduled to be readmitted for an elective cholecystectomy later this month, but he developed massive volume overload and has been admitted with anasarca and congestive heart failure. Over the past several days, the patient has been diuresed. Nephrology help is appreciated. Unfortunately, I am not certain that his charted I's and O's as well as weights are accurate. He does have a Ramachandran catheter in, but I have not seen this patient for the past 24 hours and he looks much less edematous from when I first saw him, but his I's and O's are not impressively negative. He is resting comfortably and has no new complaints today. OBJECTIVE: GENERAL: He is alert, resting comfortably. VITAL SIGNS: Blood pressure is 170/70, pulse is regular at 74. He is afebrile. HEENT: He is normocephalic. Pupils are equal and reactive to light. Extraocular muscles are intact bilaterally. NECK: The neck veins are flat. Carotids have good upstrokes bilaterally without bruits. Thyroid is nonpalpable. RESPIRATORY: Breath sounds equal bilaterally and clear to auscultation. CARDIOVASCULAR: Heart has a regular rhythm. Normal S1, S2. No S3, S4. No cardiac rubs or murmurs. GASTROINTESTINAL: Abdomen is soft, but obese, nontender. NEUROLOGIC: Grossly intact. EXTREMITIES: Have edema of ankles bilaterally, which has improved as well as his scrotal edema has improved. SKIN: Warm to touch. LYMPH NODES: Negative to palpation. LABORATORY DATA: Creatinine is 1.69. Potassium is 3.7. IMPRESSION: 1. [id number] systolic heart failure. 2. Ischemic cardiomyopathy. 3. Cardiorenal syndrome with diabetic nephropathy. 4. Diabetes. 5. Previous coronary artery bypass and coronary stents. 6. Obstructive sleep apnea and obesity. RECOMMENDATIONS: He was started on Entresto and has received approximately 5 doses. I will increase the dosage of the Entresto today. We will continue with his IV diuretics and watch his renal function. Otherwise, the patient is clinically stable.
[2017-10-15] MEDS: CARVEDILOL 3.125 MG TAB PO SCH ×2 (10:25→17:09)
--- NOTE | 2017-10-15 10:31 | PROGRESS NOTE ---
DATE: 10/15/2017 SUBJECTIVE: The patient is not diuresing as well as we would like. He has a Ramachandran catheter. His urine output yesterday in a 24-hour time period was only 1225 mL despite IV Lasix. His edema seems to be about the same. His blood pressure is somewhat high, especially considering his very low ejection fraction. He appears to be at baseline shortness of breath. OBJECTIVE: VITAL SIGNS: Blood pressure 169/69, 96% on room air, pulse rate 74, temperature 36.6. HEENT: Mucous membrane is moist. NECK: Supple. Cannot assess jugular venous distension. CHEST: Bilateral decreased breath sounds and occasional crackles. CARDIOVASCULAR: S1 and S2. There is distant systolic murmur 2/6 heard. ABDOMEN: Soft, distended with abdominal wall edema. EXTREMITIES: 4+ edema, essentially anasarca. LABORATORY TESTS: From this morning, hemoglobin 9.0, platelet count 175, WBC count 9.98. Renal labs have been pretty stable with sodium 140, potassium 3.5, BUN 44, creatinine 1.6, calcium 8, magnesium 1.8. ASSESSMENT AND PLAN: A 62-year-old male with significant history of cardiac disease with a very low ejection fraction presenting with anasarca. The patient does have CKD as well as multiple episodes of acute tubular necrosis within the last few months in the setting of cholecystitis and septic shock. RECOMMENDATION: 1. His diuresis has not been adequate. At this time, we will have to increase Lasix to 80 iv bid. Done already. Will see the diuresis response for next 4 hrs . If not adequate will raise it to 100 iv tid and add metolazone.. 2. With metolazone he would also need some potassium. 4. Continue to do daily labs. 5. Continue to monitor input and output accurately. 6. His BUN and creatinine should start to go up if we achieve adequate diuresis. As of now we have not achieved so. MTDD
[2017-10-15] MEDS ORDERED: FUROSEMIDE INJ 40 MG in SYRINGE 0 ML IV ONE (11:30)
[2017-10-15] MEDS: MoRPHine SULFATE 2 MG/ML CARP IV PRN (12:24)
[2017-10-15] MEDS: FUROSEMIDE INJ 80 MG in SYRINGE 0 ML IV SCH (17:09)
[2017-10-15] MEDS: SACUBITRIL-VALSARTAN 49-51 MG TAB PO SCH (20:18)
[2017-10-15] MEDS: NIASPAN 500 MG TABCR PO SCH (20:20)
[2017-10-15] MEDS: INSULIN GLARGINE SOLOSTAR 100 UNITS/ML 3 ML PEN SC SCH (20:23)
[2017-10-16] VITALS (13 sets, daily range): BP systolic 129–147; BP diastolic 50–99; PULSE 60–78; TEMP 36.6–37.3; O2SAT 91–99
[2017-10-16] MEDS: ALBUTEROL 0.083% NEBU SOLN 3 ML VIAL INH SCH ×7 (03:43→22:59)
[2017-10-16] MEDS: PANTOprazole SOD 40 MG TAB PO SCH (06:11)
[2017-10-16 06:37] LABS: BASO % 0.2 %; BASO ABS # 0.02 K/uL (0-0.2); EOS % 7.2 %; HEMATOCRIT 28.7 % (42-52); IG% 0.3 %; LYMPH ABS # 1.86 K/uL (1.2-3.4); MEAN CORPUSCULAR HEMOGLOBIN 29.7 pg (25-34); MEAN PLATELET VOLUME 8.5 fL (7.4-10.4); MONO % 5.6 %; NEUT % 66.7 %; PLATELET COUNT 178 K/uL (130-400); WHITE BLOOD COUNT 9.28 K/uL (4.8-10.8)
[2017-10-16 07:09] LABS: ANISOCYTOSIS PRESENT; COMPLETE YES; POLYCHROMASIA 1+
[2017-10-16 07:14] LABS: BUN/CREATININE RATIO 26.1 (10-20); CALCIUM 7.7 mg/dl (8.5-10.1); CREATININE 1.63 mg/dl (0.60-1.40); MAGNESIUM 1.9 mg/dl (1.8-2.4); POTASSIUM 3.8 mmol/L (3.5-5.1)
[2017-10-16] MEDS: BOOST VANILLA PUDDING CUP PO SCH ×2 (07:30→16:37)
[2017-10-16] MEDS: INSULIN ASPART 100 UNITS/ML 3 ML PEN SC SCH ×4 (08:07→20:27)
[2017-10-16] MEDS: COLLAGENASE OINT 30 GM TUBE EXT SCH (08:09)
[2017-10-16] MEDS: DONEPEZIL HCL 5 MG TAB PO SCH (08:09)
[2017-10-16] MEDS: CARVEDILOL 3.125 MG TAB PO SCH ×2 (08:09→16:38)
[2017-10-16] MEDS: SACUBITRIL-VALSARTAN 49-51 MG TAB PO SCH (08:10)
[2017-10-16] MEDS: DOCUSATE SODIUM 100 MG CAP PO SCH ×2 (08:10→20:11)
[2017-10-16] MEDS: APIXABAN 2.5 MG TAB PO SCH ×2 (08:10→20:12)
[2017-10-16] MEDS: LACTOBACILLUS ACIDOPHILUS (FLORANEX) TAB PO SCH ×2 (08:10→20:11)
[2017-10-16] MEDS: ASPIRIN 81 MG CHEW PO SCH (08:11)
[2017-10-16] MEDS: LIDODERM (LIDOCAINE) PATCH 5% TD SCH (08:11)
[2017-10-16] MEDS: FUROSEMIDE INJ 80 MG in SYRINGE 0 ML IV SCH ×3 (08:13→20:12)
--- NOTE | 2017-10-16 10:09 | Progress Note ---
Internal Med Progress Note Date of Service: Oct 16, 2017. Provider Documentation: SUBJECTIVE: Seen and examined at bedside Less cough and SOB No new complaints Stool for C.diff is negative Denies chest pain, nausea, vomiting, dizziness, abd pain OBJECTIVE: Vital Signs-as noted below Physical Exam: General Appearance:Obese, no apparent distress Head: normocephalic, Atraumatic Eyes: normal inspection, EOMI, PERRL Neck: supple, Trachea midline Respiratory/Chest:Decreased breath sounds, CTA Cardiovascular: S1, S2, No murmur Abdomen/GI:Soft, +Distended, Non tender, + percutaneous drain RUQ, Bowel sounds present : scrotal swelling Extremities/Musculoskelatal:normal inspection, B/L LE edema, +Bandage Neurologic/Psych:AAOX3, grossly no focal neurological deficits Skin: normal color, warm Lab data as noted below. ASSESSMENT & PLAN: Anasarca Acute on chronic CHF exacerbation s/p ICD H/O Ischemic Cardiomyopathy ECHO: EF: 35-40% as below CXR:Congestive failure versus mild pulmonary edema BNP trending down Venous Doppler: No DVT Reports cough, no fever/leukocytosis, no Abx for now Incentive Spirometry Encouraged to ambulate Saturating well on room air I/0s, daily weight, sodium and fluid restriction Continue IV Lasix 80mg BID Added Entresto Monitor electrolytes Got ICD Interrogation Appreciate Cardiology/Nephrology Input Scrotal swelling: Small bilateral hydroceles Oxygen support PRN Continue coreg, Entresto, Lasix CAD S/P CABG Denies chest pain continue Aspirin, BB Not on stains at home H/O cholecystitis: S/P percutaneous drain Needs follow up with surgery as outpatient for cholecystectomy as outpatient Denies abd pain Monitor LFTs H/O atrial fibrillation: Rate controlled Continue Coreg continue Apixaban for anticoagulation DM II: Continue ISS, Lantus Monitor BS levels CKD III: Cr:mid 2s at baseline Cr:1.62>>1.66>>1.62>>1.63 Cr low likely secondary to dilutional from anasarca Monitor renal function ? Dementia: Continue home dose of donepezil Oral Thrush: Was on Nystatin 5 ml QID PO and Diflucan 200 mg IV daily prior to admission started on 09/30/17 Discussed with (Physician at [facility]) Patient denies dysphagia/odynophagia Completed 2 week course of Nystatin, Diflucan H/O C.diff: No on any meds prior to admission Stool for c.diff:Negative B/L Leg wounds Wound care consulted Morbid Obesity: BMI:47.8 DVT px: on Apixaban Disposition: Plan to discharge to [facility] when medically cleared PROCEDURES: ECHO: * The left ventricle is severely dilated. * Ejection Fraction = 35-40%. * The right ventricle is grossly normal size. * The right ventricular systolic function is normal. * Pulmonary hypertension. Estimated pulmonary systolic pressure around 50- 55 mmHG. * There is moderate mitral regurgitation. * There is moderate tricuspid regurgitation. Venous Doppler: No DVT within the right or left lower extremity CXR: Congestive failure versus mild pulmonary edema Testicular USD: 1. Normal testes bilaterally. 2. Normal vascular flow to both testis. 3. Small bilateral hydroceles. Vital Signs: Date Time Temp Pulse Resp B/P (MAP) Pulse Ox O2 Delivery O2 Flow Rate FiO2 10/16/17 08:15 36.7 74 18 131/99 (110) 94 10/16/17 08:00 Room Air 10/16/17 07:02 71 20 94 Room Air 10/16/17 04:00 Room Air 10/16/17 03:43 69 20 92 Room Air 10/16/17 03:40 36.7 67 23 135/55 (81) 93 Room Air 10/16/17 00:15 78 21 144/56 (85) 10/16/17 00:00 Nasal Cannula 2.0 10/16/17 00:00 70 23 91 Room Air 10/15/17 23:57 36.9 79 20 184/95 (124) 91 Room Air 10/15/17 20:20 95 Nasal Cannula 2.0 10/15/17 20:18 37.1 78 20 139/75 (96) 85 Room Air 10/15/17 20:00 Nasal Cannula 2.0 10/15/17 19:15 98 20 90 Room Air 10/15/17 16:00 Room Air 3.0 10/15/17 15:51 36.4 67 24 151/70 (97) 92 Room Air 10/15/17 12:04 36.3 74 20 169/69 (102) 96 10/15/17 12:00 Room Air 3.0 10/15/17 11:10 77 20 96 Room Air Lab Results: Results Past 24 Hours Test 10/15/17 11:20 10/15/17 15:55 10/15/17 20:04 10/16/17 06:07 Range/Units Bedside Glucose 92 124 168 70-99 mg/dl White Blood Count 9.28 4.8-10.8 K/uL Red Blood Count 2.90 4.7-6.1 M/uL Hemoglobin 8.6 14.0-18.0 g/dL Hematocrit 28.7 42-52 % Mean Corpuscular Volume 99.0 80-100 fL Mean Corpuscular Hemoglobin 29.7 25-34 pg Mean Corpuscular Hemoglobin Concent 30.0 32-36 g/dl Platelet Count 178 130-400 K/uL Mean Platelet Volume 8.5 7.4-10.4 fL Neutrophils (%) (Auto) 66.7 % Lymphocytes (%) (Auto) 20.0 % Monocytes (%) (Auto) 5.6 % Eosinophils (%) (Auto) 7.2 % Basophils (%) (Auto) 0.2 % Neutrophils # (Auto) 6.18 1.4-6.5 K/uL Lymphocytes # (Auto) 1.86 1.2-3.4 K/uL Monocytes # (Auto) 0.52 0.11-0.59 K/uL Eosinophils # (Auto) 0.67 0-0.5 K/uL Basophils # (Auto) 0.02 0-0.2 K/uL RDW Standard Deviation 76.2 36.4-46.3 fL RDW Coefficient of Variation 21.9 11.5-14.5 % Immature Granulocyte % (Auto) 0.3 % Immature Granulocyte # (Auto) 0.03 0.00-0.02 K/uL Nucleated RBC Absolute Count (auto) 0.03 0-0 K/uL Nucleated Red Blood Cells % 0.4 % Polychromasia 1+ Anisocytosis PRESENT Sodium Level 140 136-145 mmol/L Potassium Level 3.8 3.5-5.1 mmol/L Chloride Level 104 98-107 mmol/L Carbon Dioxide Level 30 21-32 mmol/L Anion Gap 6.0 3-11 mmol/L Blood Urea Nitrogen 43 7-18 mg/dl Creatinine 1.63 0.60-1.40 mg/dl Est Creatinine Clear Calc Drug Dose 60.4 ml/min Estimated GFR () 51.2 Estimated GFR (Non- 44.2 BUN/Creatinine Ratio 26.1 10-20 Random Glucose 133 70-99 mg/dl Calcium Level 7.7 8.5-10.1 mg/dl Magnesium Level 1.9 1.8-2.4 mg/dl Pro-B-Type Natriuretic Peptide 37528 0-900 pg/ml Test 10/16/17 07:02 Range/Units Bedside Glucose 127 70-99 mg/dl
[2017-10-16] MEDS: MoRPHine SULFATE 2 MG/ML CARP IV PRN (13:14)
[2017-10-16] MEDS ORDERED: METOLAZONE 5 MG TAB PO ONE (15:00)
--- NOTE | 2017-10-16 15:14 | NEPHROLOGY PROGRESS NOTE ---
DATE: 10/16/2017 SUBJECTIVE: The patient is diuresing slightly better, but still not adequate. His renal labs still has not changed at all. He made a urine total of 2150 mL yesterday in a 24-hour time period. He still has a lot of edema, although he feels slightly better. OBJECTIVE: VITAL SIGNS: Blood pressure 147/92, 99% on room air, pulse rate 60 per minute, temperature 36.6. HEENT: Mucous membranes are moist. NECK: Supple. Cannot assess jugular venous distension. CHEST: Bilateral decreased breath sounds and occasional crackles. CARDIOVASCULAR: S1 and S2. Soft systolic murmur heard. ABDOMEN: Soft, distended with abdominal wall edema. EXTREMITIES: 4+ edema, essentially anasarca. LABORATORY TESTS: Reviewed in detail and is essentially unchanged from the previous days. ASSESSMENT AND PLAN: A 62-year-old male with significant history of cardiac disease with a very low ejection fraction, presenting with anasarca. The patient does have chronic kidney disease as well as multiple episodes of acute tubular necrosis within the last few months in the setting of cholecystitis and septic shock. RECOMMENDATION: 1. Increase Lasix to 80 mg IV q. 8 hours starting now. 2. Add one dose of metolazone 5 mg p.o. now. Continue daily labs. Continue to monitor input and output accurately. His BUN and creatinine should start to go up if we achieve adequate diuresis. The creatinine at this time is misleading because of extensive anasarca. MTDD
--- NOTE | 2017-10-16 15:36 | Cardiology Follow-Up ---
Subjective General Date of Service: Oct 16, 2017. Chief Complaint: follow up shortness of breath, LE edema, abdominal distension Pt evaluation today including: conversation w/ patient History of Present Illness The patient is a 62 year old male seen in follow up, having been seen by Dr Aguilar yesterday. Pt still volume overloaded. Telemetry with rate controlled AF. Allergies Coded Allergies: Amoxicillin (Verified Allergy, Unknown, UNKNOWN, 10/12/17) Clavulanic Acid (Verified Allergy, Unknown, UNKNOWN, 10/12/17) Social History Smoking Status: Former Smoker Hx Tobacco Use In Past Year?: No Hx Alcohol Use - Type And Amou: No Hx Substance Use - Type And Am: No Problem List Medical Problems: (1) Pulmonary edema Status: Acute Physical Exam Vital Signs Last Vital Signs Documentation Date Time Temp Pulse Resp B/P (MAP) Pulse Ox O2 Delivery O2 Flow Rate FiO2 10/16/17 12:21 36.6 60 24 147/92 (110) 99 10/16/17 12:00 Room Air 10/16/17 00:00 2.0 Physical Exam Constitutional: Level of Distress: chronically ill ENMT: normal ENT inspection Neck: trachea midline Lungs: Auscultation: pertinent finding (decreased BS at bases ) Cardiovascular: Heart Auscultation: RRR, no murmurs Abdomen: Inspection & Palpation: distended Extremities: pertinent finding (2-3+ edema ) Neurologic: Gait & Station: pertinent finding (no focal neurologic changes ) Assessment and Plan Assessment and Plan Impression: 62-year-old male 1. Volume overload due to acute on chronic systolic heart failure, in the setting of multivessel CAD, and kidney disease 2. Cardiac catheterization [place] [facility] [place]17, 60% mid LAD, 70% mid circumflex, 90 % mid right coronary artery stenosis, 60% RPDA stenosis 3. Chronic cholecystitis, status post percutaneous drainage 4. History of VF arrest in the setting of acute cholecystitis prior to percutaneous drainage 5. Bradycardia 6. Status post dual-chamber AICD August, 7. Rate controlled atrial fibrillation 8. Factor V Leiden mutation positive Recommendations: The patient's BUN and creatinine have not increased significantly, but he is also not diuresing as vigorously as what we would like. At this time, will hold Entresto, and increase diuretic dose. Nephro input noted and appreciated. J. Newton, DO Laboratory Results Last 24 Hours Test 10/15/17 15:55 10/15/17 20:04 10/16/17 06:07 10/16/17 07:02 Bedside Glucose 124 mg/dl 168 mg/dl 127 mg/dl White Blood Count 9.28 K/uL Red Blood Count 2.90 M/uL Hemoglobin 8.6 g/dL Hematocrit 28.7 % Mean Corpuscular Volume 99.0 fL Mean Corpuscular Hemoglobin 29.7 pg Mean Corpuscular Hemoglobin Concent 30.0 g/dl Platelet Count 178 K/uL Mean Platelet Volume 8.5 fL Neutrophils (%) (Auto) 66.7 % Lymphocytes (%) (Auto) 20.0 % Monocytes (%) (Auto) 5.6 % Eosinophils (%) (Auto) 7.2 % Basophils (%) (Auto) 0.2 % Neutrophils # (Auto) 6.18 K/uL Lymphocytes # (Auto) 1.86 K/uL Monocytes # (Auto) 0.52 K/uL Eosinophils # (Auto) 0.67 K/uL Basophils # (Auto) 0.02 K/uL RDW Standard Deviation 76.2 fL RDW Coefficient of Variation 21.9 % Immature Granulocyte % (Auto) 0.3 % Immature Granulocyte # (Auto) 0.03 K/uL Nucleated RBC Absolute Count (auto) 0.03 K/uL Nucleated Red Blood Cells % 0.4 % Polychromasia 1+ Anisocytosis PRESENT Sodium Level 140 mmol/L Potassium Level 3.8 mmol/L Chloride Level 104 mmol/L Carbon Dioxide Level 30 mmol/L Anion Gap 6.0 mmol/L Blood Urea Nitrogen 43 mg/dl Creatinine 1.63 mg/dl Est Creatinine Clear Calc Drug Dose 60.4 ml/min Estimated GFR () 51.2 Estimated GFR (Non- 44.2 BUN/Creatinine Ratio 26.1 Random Glucose 133 mg/dl Calcium Level 7.7 mg/dl Magnesium Level 1.9 mg/dl Pro-B-Type Natriuretic Peptide 79298 pg/ml Test 10/16/17 11:17 Bedside Glucose 185 mg/dl
[2017-10-16] MEDS: NIASPAN 500 MG TABCR PO SCH (20:11)
[2017-10-16] MEDS: INSULIN GLARGINE SOLOSTAR 100 UNITS/ML 3 ML PEN SC SCH (20:28)
[2017-10-17] VITALS (11 sets, daily range): BP systolic 135–170; BP diastolic 50–80; PULSE 66–89; TEMP 36.4–37; O2SAT 91–100
[2017-10-17] MEDS: ALBUTEROL 0.083% NEBU SOLN 3 ML VIAL INH SCH ×6 (03:29→23:04)
[2017-10-17] MEDS: PANTOprazole SOD 40 MG TAB PO SCH (06:01)
[2017-10-17 06:12] LABS: BUN/CREATININE RATIO 24.8 (10-20); CREATININE 1.77 mg/dl (0.60-1.40); MAGNESIUM 1.8 mg/dl (1.8-2.4); POTASSIUM 3.6 mmol/L (3.5-5.1)
[2017-10-17] MEDS: BOOST VANILLA PUDDING CUP PO SCH ×2 (07:30→16:28)
[2017-10-17] MEDS: COLLAGENASE OINT 30 GM TUBE EXT SCH (07:45)
[2017-10-17] MEDS: CARVEDILOL 3.125 MG TAB PO SCH ×2 (07:45→16:28)
[2017-10-17] MEDS: DONEPEZIL HCL 5 MG TAB PO SCH (07:46)
[2017-10-17] MEDS: FUROSEMIDE INJ 80 MG in SYRINGE 0 ML IV SCH (07:46)
[2017-10-17] MEDS: LACTOBACILLUS ACIDOPHILUS (FLORANEX) TAB PO SCH ×2 (07:46→20:13)
[2017-10-17] MEDS: APIXABAN 2.5 MG TAB PO SCH ×2 (07:47→20:13)
[2017-10-17] MEDS: DOCUSATE SODIUM 100 MG CAP PO SCH ×2 (07:47→20:12)
[2017-10-17] MEDS: LIDODERM (LIDOCAINE) PATCH 5% TD SCH (07:47)
[2017-10-17] MEDS: ASPIRIN 81 MG CHEW PO SCH (07:47)
--- NOTE | 2017-10-17 08:17 | Progress Note ---
Internal Med Progress Note Date of Service: Oct 17, 2017. Provider Documentation: SUBJECTIVE: Seen and examined at bedside Minimal cough Denies SOB No new complaints Denies chest pain, nausea, vomiting, dizziness, abd pain Diuresis improved with increased lasix OBJECTIVE: Vital Signs-as noted below Physical Exam: General Appearance:Obese, no apparent distress Head: normocephalic, Atraumatic Eyes: normal inspection, EOMI, PERRL Neck: supple, Trachea midline Respiratory/Chest:Decreased breath sounds, CTA Cardiovascular: S1, S2, No murmur Abdomen/GI:Soft, +Distended, Non tender, + percutaneous drain RUQ, Bowel sounds present : scrotal swelling Extremities/Musculoskelatal:normal inspection, B/L LE edema, +Bandage Neurologic/Psych:AAOX3, grossly no focal neurological deficits Skin: normal color, warm Lab data as noted below. ASSESSMENT & PLAN: Anasarca Acute on chronic CHF exacerbation s/p ICD H/O Ischemic Cardiomyopathy ECHO: EF: 35-40% as below CXR:Congestive failure versus mild pulmonary edema BNP trending down Venous Doppler: No DVT Reports cough, no fever/leukocytosis, no Abx for now Incentive Spirometry Encouraged to ambulate Saturating well on room air I/0s, daily weight, sodium and fluid restriction Continue IV Lasix 80mg BID>>>80MG TID Continue BB Got one dose of Zaroxolyn Entresto held for now Monitor electrolytes Got ICD Interrogation Appreciate Cardiology/Nephrology Input Scrotal swelling: Small bilateral hydroceles Oxygen support PRN Cr slightly increased CAD S/P CABG Denies chest pain continue Aspirin, BB Not on stains at home H/O cholecystitis: S/P percutaneous drain Needs follow up with surgery as outpatient for cholecystectomy as outpatient Denies abd pain Monitor LFTs H/O atrial fibrillation: Rate controlled Continue Coreg continue Apixaban for anticoagulation DM II: Continue ISS, Lantus Monitor BS levels CKD III: Cr:mid 2s at baseline Cr:1.62>>1.66>>1.62>>1.63>>>1.77 Cr low likely secondary to dilutional from anasarca Monitor renal function ? Dementia: Continue home dose of donepezil Oral Thrush: Was on Nystatin 5 ml QID PO and Diflucan 200 mg IV daily prior to admission started on 09/30/17 Discussed with (Physician at [facility]) Patient denies dysphagia/odynophagia Completed 2 week course of Nystatin, Diflucan H/O C.diff: No on any meds prior to admission Stool for c.diff:Negative B/L Leg wounds Wound care consulted Morbid Obesity: BMI:47.8 DVT px: on Apixaban Disposition: Plan to discharge to [facility] when medically cleared PROCEDURES: ECHO: * The left ventricle is severely dilated. * Ejection Fraction = 35-40%. * The right ventricle is grossly normal size. * The right ventricular systolic function is normal. * Pulmonary hypertension. Estimated pulmonary systolic pressure around 50- 55 mmHG. * There is moderate mitral regurgitation. * There is moderate tricuspid regurgitation. Venous Doppler: No DVT within the right or left lower extremity CXR: Congestive failure versus mild pulmonary edema Testicular USD: 1. Normal testes bilaterally. 2. Normal vascular flow to both testis. 3. Small bilateral hydroceles. Vital Signs: Date Time Temp Pulse Resp B/P (MAP) Pulse Ox O2 Delivery O2 Flow Rate FiO2 10/17/17 07:49 37.0 86 20 157/58 (91) 100 10/17/17 07:14 82 20 92 Nasal Cannula 2.0 10/17/17 04:21 36.5 89 18 135/60 (85) 94 Nasal Cannula 2.0 10/17/17 04:00 Room Air 10/17/17 03:30 80 20 93 Nasal Cannula 2.0 10/17/17 00:00 Room Air 10/16/17 23:30 36.6 63 17 129/68 (88) 93 Room Air 10/16/17 23:01 66 16 92 Room Air 10/16/17 20:00 Room Air 10/16/17 19:15 37.3 65 18 133/50 (77) 95 Nasal Cannula 2.0 10/16/17 19:12 71 18 93 Room Air 10/16/17 16:00 Room Air 10/16/17 15:52 62 20 93 Room Air 10/16/17 12:21 36.6 60 24 147/92 (110) 99 10/16/17 12:00 Room Air 10/16/17 11:05 70 20 94 Room Air Lab Results: Results Past 24 Hours Test 10/16/17 11:17 10/16/17 16:35 10/16/17 20:20 10/17/17 05:29 Range/Units Bedside Glucose 185 160 275 70-99 mg/dl Sodium Level 140 136-145 mmol/L Potassium Level 3.6 3.5-5.1 mmol/L Chloride Level 104 98-107 mmol/L Carbon Dioxide Level 30 21-32 mmol/L Anion Gap 6.0 3-11 mmol/L Blood Urea Nitrogen 44 7-18 mg/dl Creatinine 1.77 0.60-1.40 mg/dl Est Creatinine Clear Calc Drug Dose 55.6 ml/min Estimated GFR () 46.3 Estimated GFR (Non- 40.0 BUN/Creatinine Ratio 24.8 10-20 Random Glucose 150 70-99 mg/dl Calcium Level 8.0 8.5-10.1 mg/dl Magnesium Level 1.8 1.8-2.4 mg/dl Test 10/17/17 06:30 Range/Units Bedside Glucose 144 70-99 mg/dl
[2017-10-17] MEDS: INSULIN ASPART 100 UNITS/ML 3 ML PEN SC SCH ×4 (08:19→20:16)
[2017-10-17] MEDS: MoRPHine SULFATE 2 MG/ML CARP IV PRN ×4 (09:32→21:43)
--- NOTE | 2017-10-17 12:54 | Cardiology Follow-Up ---
Subjective General Date of Service: Oct 17, 2017. Chief Complaint: follow up shortness of breath, LE edema, abdominal distension Pt evaluation today including: conversation w/ patient, physical exam History of Present Illness The patient is a 62 year old male seen in follow up. Negative I/ O balance yesterday. Ramachandran catheter in place. Allergies Coded Allergies: Amoxicillin (Verified Allergy, Unknown, UNKNOWN, 10/12/17) Clavulanic Acid (Verified Allergy, Unknown, UNKNOWN, 10/12/17) Social History Smoking Status: Former Smoker Hx Tobacco Use In Past Year?: No Hx Alcohol Use - Type And Amou: No Hx Substance Use - Type And Am: No Problem List Medical Problems: (1) Pulmonary edema Status: Acute Physical Exam Vital Signs Last Vital Signs Documentation Date Time Temp Pulse Resp B/P (MAP) Pulse Ox O2 Delivery O2 Flow Rate FiO2 10/17/17 11:59 77 24 136/80 (98) 95 Room Air 10/17/17 07:49 37.0 10/17/17 07:14 2.0 Physical Exam Constitutional: Level of Distress: chronically ill ENMT: normal ENT inspection Neck: trachea midline Lungs: Auscultation: pertinent finding (decreased BS at bases ) Cardiovascular: Heart Auscultation: RRR, no murmurs Abdomen: Inspection & Palpation: distended Extremities: pertinent finding (2-3+ edema ) Neurologic: Gait & Station: pertinent finding (no focal neurologic changes ) Assessment and Plan Assessment and Plan Impression: 62-year-old male 1. Volume overload due to acute on chronic systolic heart failure, in the setting of multivessel CAD, and kidney disease 2. Cardiac catheterization at [facility] 08/23/17, 60% mid LAD, 70% mid circumflex, 90 % mid right coronary artery stenosis, 60% RPDA stenosis 3. Chronic cholecystitis, status post percutaneous drainage 4. History of VF arrest in the setting of acute cholecystitis prior to percutaneous drainage 5. Bradycardia prior to PM/ AICD implant 6. Status post dual-chamber AICD August, 7. Rate controlled atrial fibrillation 8. Factor V Leiden mutation positive Recommendations: Continue furosemide 80 mg IV TID. Holding Entresto, to allow more aggressive diuretic therapy. Continue Mercedez. Thanh Reddy DO Laboratory Results Last 24 Hours Test 10/16/17 16:35 10/16/17 20:20 10/17/17 05:29 10/17/17 06:30 Bedside Glucose 160 mg/dl 275 mg/dl 144 mg/dl Sodium Level 140 mmol/L Potassium Level 3.6 mmol/L Chloride Level 104 mmol/L Carbon Dioxide Level 30 mmol/L Anion Gap 6.0 mmol/L Blood Urea Nitrogen 44 mg/dl Creatinine 1.77 mg/dl Est Creatinine Clear Calc Drug Dose 55.6 ml/min Estimated GFR () 46.3 Estimated GFR (Non- 40.0 BUN/Creatinine Ratio 24.8 Random Glucose 150 mg/dl Calcium Level 8.0 mg/dl Magnesium Level 1.8 mg/dl Test 10/17/17 11:32 Bedside Glucose 99 mg/dl
[2017-10-17] MEDS ORDERED: NURSING VERBAL MED ORDER ONE (13:00)
[2017-10-17] MEDS ORDERED: POTASSIUM CHLORIDE 20 MEQ TABCR PO STA (13:40)
--- NOTE | 2017-10-17 14:27 | NEPHROLOGY PROGRESS NOTE ---
DATE: 10/17/2017 SUBJECTIVE: The patient is diuresing fairly good now. His renal labs are still stable. Weight is going down. Urine output yesterday was 2375 mL. Weight is down by about 2 kg according to the scale. OBJECTIVE: VITAL SIGNS: Blood pressure 136/80, 95% on room air, pulse rate 77 per minute, temperature 37 degrees Celsius. HEENT: Mucous membrane is moist. NECK: Supple. Cannot assess jugular venous distension. CHEST: Bilateral decreased breath sounds and occasional crackles. CARDIOVASCULAR: S1 and S2. Soft systolic murmur heard. ABDOMEN: Soft, distended with abdominal wall edema. EXTREMITIES: 3-4+ edema with very chronic woody consistency. LABORATORY TESTS: From this morning shows hemoglobin 8.6. WBC count 9.28, platelet count 178. Sodium 140, potassium 3.6, BUN 44, creatinine 1.77, calcium 8.0. ASSESSMENT AND PLAN: A 62-year-old male with significant history of cardiac disease with a very low ejection fraction, presenting with anasarca. The patient does have chronic kidney disease as well as multiple episodes of acute tubular necrosis within the last few months in the setting of cholecystitis and septic shock. RECOMMENDATION: 1. We will add metolazone 5 mg p.o. 1 dose again today. 2. Increase Lasix to 100 mg IV q. 8 hours. 3. Continue to monitor input and output. 4. Daily labs. MTDD
[2017-10-17] MEDS: FUROSEMIDE INJ 100 MG in SYRINGE 0 ML IV SCH ×2 (14:45→20:12)
[2017-10-17] MEDS: METOLAZONE 5 MG TAB PO SCH (14:46)
[2017-10-17] MEDS: NIASPAN 500 MG TABCR PO SCH (20:14)
[2017-10-17] MEDS: INSULIN GLARGINE SOLOSTAR 100 UNITS/ML 3 ML PEN SC SCH (20:18)
[2017-10-18] VITALS (12 sets, daily range): BP systolic 111–130; BP diastolic 45–58; PULSE 65–79; TEMP 36.5–36.9; O2SAT 90–98
[2017-10-18] MEDS: MoRPHine SULFATE 2 MG/ML CARP IV PRN ×4 (01:38→20:56)
[2017-10-18] MEDS: ALBUTEROL 0.083% NEBU SOLN 3 ML VIAL INH SCH ×6 (03:03→23:15)
[2017-10-18] MEDS: FUROSEMIDE INJ 100 MG in SYRINGE 0 ML IV SCH ×3 (06:17→20:55)
[2017-10-18] MEDS: PANTOprazole SOD 40 MG TAB PO SCH (06:17)
[2017-10-18 08:05] LABS: BASO % 0.2 %; BASO ABS # 0.02 K/uL (0-0.2); EOS % 13.1 %; HEMATOCRIT 29.3 % (42-52); IG% 0.2 %; LYMPH % 16.8 %; LYMPH ABS # 1.75 K/uL (1.2-3.4); MEAN CELL VOLUME 98.7 fL (80-100); MEAN CORPUSCULAR HEMOGLOBIN 29.6 pg (25-34); MEAN PLATELET VOLUME 8.4 fL (7.4-10.4); MONO % 6.4 %; NEUT % 63.3 %; PLATELET COUNT 188 K/uL (130-400); RED BLOOD COUNT 2.97 M/uL (4.7-6.1); WHITE BLOOD COUNT 10.39 K/uL (4.8-10.8)
[2017-10-18] MEDS: BOOST VANILLA PUDDING CUP PO SCH ×2 (08:16→16:45)
[2017-10-18] MEDS: APIXABAN 2.5 MG TAB PO SCH ×2 (08:16→20:31)
[2017-10-18] MEDS: DOCUSATE SODIUM 100 MG CAP PO SCH ×2 (08:17→20:31)
[2017-10-18] MEDS: DONEPEZIL HCL 5 MG TAB PO SCH (08:17)
[2017-10-18] MEDS: METOLAZONE 5 MG TAB PO SCH (08:18)
[2017-10-18] MEDS: LIDODERM (LIDOCAINE) PATCH 5% TD SCH (08:18)
[2017-10-18] MEDS: LACTOBACILLUS ACIDOPHILUS (FLORANEX) TAB PO SCH ×2 (08:19→20:32)
[2017-10-18] MEDS: CARVEDILOL 3.125 MG TAB PO SCH ×2 (08:19→17:01)
[2017-10-18] MEDS: ASPIRIN 81 MG CHEW PO SCH (08:20)
[2017-10-18 08:23] LABS: ANISOCYTOSIS PRESENT; COMPLETE YES
[2017-10-18] MEDS: INSULIN ASPART 100 UNITS/ML 3 ML PEN SC SCH ×4 (08:24→21:00)
[2017-10-18] MEDS: COLLAGENASE OINT 30 GM TUBE EXT SCH (08:30)
--- NOTE | 2017-10-18 08:30 | Progress Note ---
Internal Med Progress Note Date of Service: Oct 18, 2017. Provider Documentation: SUBJECTIVE: Seen and examined at bedside States scrotal pain is better today Reports some pain at percutaneous drain site Feels Itchy (Chronic per patient) Minimal cough Denies SOB Denies chest pain, nausea, vomiting, dizziness, abd pain OBJECTIVE: Vital Signs-as noted below Physical Exam: General Appearance:Obese, no apparent distress Head: normocephalic, Atraumatic Eyes: normal inspection, EOMI, PERRL Neck: supple, Trachea midline Respiratory/Chest:Decreased breath sounds, CTA Cardiovascular: S1, S2, No murmur Abdomen/GI:Soft, +Distended, Non tender, + percutaneous drain RUQ, Bowel sounds present : scrotal swelling Extremities/Musculoskelatal:normal inspection, B/L LE edema, +Bandage Neurologic/Psych:AAOX3, grossly no focal neurological deficits Skin: normal color, warm Lab data as noted below. ASSESSMENT & PLAN: Anasarca Acute on chronic CHF exacerbation s/p ICD H/O Ischemic Cardiomyopathy ECHO: EF: 35-40% as below CXR:Congestive failure versus mild pulmonary edema BNP trending down Venous Doppler: No DVT Less cough, no fever/leukocytosis, no Abx for now Incentive Spirometry Encouraged to ambulate Saturating well on room air I/0s, daily weight, sodium and fluid restriction Continue IV Lasix 80mg BID>>>80mg TID>>>100mg TID; Added Zaroxolyn 5mg daily Continue BB Entresto held for now Monitor electrolytes Got ICD Interrogation Appreciate Cardiology/Nephrology Input Scrotal swelling: Small bilateral hydroceles Oxygen support PRN Cr: 1.84 today CAD S/P CABG Denies chest pain continue Aspirin, BB Not on stains at home H/O cholecystitis: S/P percutaneous drain Needs follow up with surgery as outpatient for cholecystectomy as outpatient Monitor LFTs Percutaneous drain shows serous drainage (Not bile looking) Will request surgery eval H/O atrial fibrillation: Rate controlled Continue Coreg continue Apixaban for anticoagulation DM II: Continue ISS, Lantus Monitor BS levels CKD III: Cr:mid 2s at baseline Cr:1.62>>1.66>>1.62>>1.63>>>1.77>.1.84 Cr low likely secondary to dilutional from anasarca Monitor renal function ? Dementia: Continue home dose of donepezil Oral Thrush: Was on Nystatin 5 ml QID PO and Diflucan 200 mg IV daily prior to admission started on 09/30/17 Discussed with (Physician at [facility]) Patient denies dysphagia/odynophagia Completed 2 week course of Nystatin, Diflucan H/O C.diff: No on any meds prior to admission Stool for c.diff:Negative B/L Leg wounds Wound care consulted Morbid Obesity: BMI:47 DVT px: on Apixaban Disposition: Plan to discharge to [facility] when medically cleared PROCEDURES: ECHO: * The left ventricle is severely dilated. * Ejection Fraction = 35-40%. * The right ventricle is grossly normal size. * The right ventricular systolic function is normal. * Pulmonary hypertension. Estimated pulmonary systolic pressure around 50- 55 mmHG. * There is moderate mitral regurgitation. * There is moderate tricuspid regurgitation. Venous Doppler: No DVT within the right or left lower extremity CXR: Congestive failure versus mild pulmonary edema Testicular USD: 1. Normal testes bilaterally. 2. Normal vascular flow to both testis. 3. Small bilateral hydroceles. Vital Signs: Date Time Temp Pulse Resp B/P (MAP) Pulse Ox O2 Delivery O2 Flow Rate FiO2 10/18/17 07:56 36.9 76 18 129/54 (79) 94 Room Air 10/18/17 07:12 71 18 90 Room Air 10/18/17 04:00 Room Air 10/18/17 03:39 36.9 79 20 125/58 (80) 91 Room Air 10/18/17 03:04 65 20 97 Nasal Cannula 2.0 10/18/17 00:00 Room Air 10/17/17 23:24 36.8 66 17 143/70 (94) 100 Nasal Cannula 2.0 10/17/17 23:06 75 14 94 Room Air 10/17/17 20:00 Room Air 10/17/17 19:17 36.4 74 24 170/50 (90) 91 Room Air 10/17/17 18:54 76 18 96 Room Air 10/17/17 16:19 36.6 73 24 141/66 (91) 93 Room Air 10/17/17 16:00 Room Air 10/17/17 14:26 73 20 96 Room Air 10/17/17 12:00 Room Air 10/17/17 11:59 77 24 136/80 (98) 95 Room Air Lab Results: Results Past 24 Hours Test 10/17/17 11:32 10/17/17 16:20 10/17/17 19:54 10/18/17 06:30 Range/Units Bedside Glucose 99 156 190 121 70-99 mg/dl Test 10/18/17 07:46 Range/Units White Blood Count 10.39 4.8-10.8 K/uL Red Blood Count 2.97 4.7-6.1 M/uL Hemoglobin 8.8 14.0-18.0 g/dL Hematocrit 29.3 42-52 % Mean Corpuscular Volume 98.7 80-100 fL Mean Corpuscular Hemoglobin 29.6 25-34 pg Mean Corpuscular Hemoglobin Concent 30.0 32-36 g/dl Platelet Count 188 130-400 K/uL Mean Platelet Volume 8.4 7.4-10.4 fL Neutrophils (%) (Auto) 63.3 % Lymphocytes (%) (Auto) 16.8 % Monocytes (%) (Auto) 6.4 % Eosinophils (%) (Auto) 13.1 % Basophils (%) (Auto) 0.2 % Neutrophils # (Auto) 6.57 1.4-6.5 K/uL Lymphocytes # (Auto) 1.75 1.2-3.4 K/uL Monocytes # (Auto) 0.67 0.11-0.59 K/uL Eosinophils # (Auto) 1.36 0-0.5 K/uL Basophils # (Auto) 0.02 0-0.2 K/uL RDW Standard Deviation 77.9 36.4-46.3 fL RDW Coefficient of Variation 21.8 11.5-14.5 % Immature Granulocyte % (Auto) 0.2 % Immature Granulocyte # (Auto) 0.02 0.00-0.02 K/uL Anisocytosis PRESENT Sodium Level 142 136-145 mmol/L Potassium Level 3.3 3.5-5.1 mmol/L Chloride Level 102 98-107 mmol/L Carbon Dioxide Level 32 21-32 mmol/L Anion Gap 8.0 3-11 mmol/L Blood Urea Nitrogen 44 7-18 mg/dl Creatinine 1.84 0.60-1.40 mg/dl Est Creatinine Clear Calc Drug Dose 52.9 ml/min Estimated GFR () 44.2 Estimated GFR (Non- 38.2 BUN/Creatinine Ratio 24.1 10-20 Random Glucose 97 70-99 mg/dl Calcium Level 8.6 8.5-10.1 mg/dl Magnesium Level 1.8 1.8-2.4 mg/dl
[2017-10-18 08:33] LABS: BUN/CREATININE RATIO 24.1 (10-20); CALCIUM 8.6 mg/dl (8.5-10.1); CREATININE 1.84 mg/dl (0.60-1.40); MAGNESIUM 1.8 mg/dl (1.8-2.4); POTASSIUM 3.3 mmol/L (3.5-5.1)
[2017-10-18] MEDS ORDERED: POTASSIUM CHLORIDE 10 MEQ TABCR PO ONE (08:45)
--- NOTE | 2017-10-18 08:48 | Clinical Documentation Query ---
CLINICAL DOCUMENTATION QUERY A 62 year old male who presents to the Emergency Room with complaints of worsening shortness of breath beginning 2 weeks ago. The patient states that he has also been wheezing. He also reports having swollen testicles. The patient reports that his ankles have been weeping and that his left arm sometimes does too. In your clinical opinion is this patient being managed for: ( ) Renal anasarca ( ) Not Agree (X ) Other explanation of clinical findings (Please Explain) ( ) Unable to determine (Please Define) ( ) Need to Discuss Anasarca is multifactorial: mainly CHF, CKD could also be contributing The medical record reflects the following clinical findings, treatment, and risk factors. Clinical Indicators: Admitting creatinine 1.69 with stage 3 CKD, +4 bilateral lower extremity pitting edema with weeping, scrotal edema, SOB Treatment: Lasix 80mg IV increased to 100mg IV Risk Factors: CKD, hx JA, systolic CHF, a-fib, HTN, DM Please clarify and document your clinical opinion in the progress notes and discharge summary. Terms such as "probable", "suspected", "likely", "questionable", "possible", or "still to be ruled out" are acceptable. IF IN AGREEMENT, YOU MUST DOCUMENT ABOVE DIAGNOSTIC STATEMENT IN DAILY PROGRESS NOTES AND DISCHARGE SUMMARY. This document is not part of the patient's record. Thank You, Summer Gage RN [phone]
--- NOTE | 2017-10-18 10:15 | Medical Consult ---
Consultation Date of Consultation: Oct 18, 2017. Attending Physician: Jose Caldwell MD Reason for Consultation: Percutaneous drain (gallbladder drainage) History of Present Illness Patient is a 62M hospitalized at [facility] in August 2017 due to gallbadder symptoms. At this time they planned for a cholecystectomy but he went into VF while he was in the hospital. Patient had a cardiac cath with stents placed at this time. He was given an AICD at this time. He was discharged when stable and went to [facility] for rehab. Patient states while at [facility] he developed SOB, some testicular swelling and swelling in his ankles. States approximately 2 days prior to his d/c from [facility] he presented to [facility] ER. He was admitted at this time. Denies problems with percutaneous drain. Denies nausea, vomiting. Patient has been moving his bowels and urinating without trouble. Denies abdominal pain and testicular pain at this time. Denies recent fevers, chills. Tolerating foods - States he felt bloated after breakfast - had orange juice/pancakes. Currently Taking Eliquis. Past Medical/Surgical History Medical Problems: (1) Pulmonary edema Status: Acute Family History FH: CHF (congestive heart failure) FATHER Social History Smoking Status: Former Smoker Housing Status: assisted living Allergies Coded Allergies: Amoxicillin (Verified Allergy, Unknown, UNKNOWN, 10/12/17) Clavulanic Acid (Verified Allergy, Unknown, UNKNOWN, 10/12/17) Current Inpatient Medications Current Inpatient Medications Medications (Trade) Dose Ordered Sig/Randa Route Start Time Stop Time Status Last Admin Dose Admin Miscellaneous (Iv Fluids Completed) 1 ea PRN PRN N/A 10/12/17 16:30 10/12/18 16:29 Acetaminophen (Tylenol Tab) 500 mg Q4H PRN PO 10/12/17 17:15 11/11/17 17:14 10/14/17 23:54 500 MG Albuterol Sulfate (Ventolin 0.083% 2.5MG/3ML Neb) 2.5 mg Q4R INH 10/12/17 20:00 11/11/17 19:59 10/18/17 07:10 2.5 MG Aspirin (Aspirin Chew) 81 mg QAM PO 10/13/17 09:00 11/12/17 08:59 10/18/17 08:20 81 MG Bisacodyl (Dulcolax Supp) 10 mg DAILY PRN [place] 10/12/17 17:15 11/11/17 17:14 Carvedilol (Coreg Tab) 3.125 mg BIDM PO 10/12/17 17:42 11/11/17 17:59 10/18/17 08:19 3.125 MG Collagenase (Santyl Oint) 1 appln DAILY EXT 10/13/17 09:00 11/12/17 08:59 10/18/17 08:30 1 APPLN Docusate Sodium (coLACE CAP) 100 mg BID PO 10/12/17 21:00 11/11/17 20:59 10/16/17 08:10 100 MG Donepezil HCl (Aricept Tab) 5 mg QAM PO 10/13/17 09:00 11/12/17 08:59 10/18/17 08:17 5 MG Insulin Glargine (Lantus Solostar Pen) 40 units HS SC 10/12/17 21:00 11/11/17 20:59 10/17/17 20:18 40 UNITS Lactobacillus Acidophilus (Floranex Tab) 2 tab BID PO 10/12/17 21:00 11/11/17 20:59 10/18/17 08:19 2 TAB Lidocaine (Lidoderm Patch 5%) 1 patch QAM TD 10/13/17 09:00 11/12/17 08:59 10/18/17 08:18 1 PATCH Magnesium Hydroxide (Milk Of Magnesia Susp) 30 ml DAILY PRN PO 10/12/17 17:15 11/11/17 17:14 Niacin (Niaspan Extended Rel Tab) 1,000 mg HS PO 10/12/17 21:00 11/11/17 20:59 10/17/17 20:14 1,000 MG Pantoprazole Sodium (Protonix Tab) 40 mg DAILYBB PO 10/13/17 06:00 11/12/17 06:59 10/18/17 06:17 40 MG Senna/Docusate Sodium (Senokot S Tab) 1 tab QDL PRN PO 10/12/17 17:15 11/11/17 17:14 Apixaban (Eliquis Tab) 5 mg Q12 PO 10/12/17 21:00 11/11/17 20:59 10/18/17 08:16 5 MG Polyethylene (Miralax Powder Packet) 17 gm QDL PRN PO 10/12/17 17:15 11/11/17 17:14 Miscellaneous (Remove Lidoderm Patch) 1 ea DAILY@21 N/A 10/12/17 21:00 11/11/17 20:59 10/17/17 20:12 1 EA Sodium Biphosphate/ Sodium Phosphate (Fleet Enema) 132 ml DAILY PRN [place] 10/12/17 17:30 11/11/17 17:29 Glucose (Glucose 40% Gel) 15-30 GRAMS 15 GRAMS... UD PRN PO 10/12/17 18:00 11/11/17 17:59 Glucose (Glucose Chew Tab) 4-8 Tablets 4 Tabl... UD PRN PO 10/12/17 18:00 11/11/17 17:59 Dextrose (Dextrose 50% 50ML Syringe) 25-50ML OF 50% DW IV FOR... UD PRN IV 10/12/17 18:00 11/11/17 17:59 Glucagon (Glucagon Inj) 1 mg UD PRN SQ 10/12/17 18:00 11/11/17 17:59 Insulin Aspart (novoLOG ASPART) SLIDING SCALE If C... ACHS SC 10/12/17 21:00 11/11/17 20:59 10/18/17 08:24 2 UNITS Enteral Nutritional Formula (Boost Pudding) 1 cup BIDM PO 10/14/17 07:30 11/13/17 07:29 10/18/17 08:16 1 CUP Heparin Sodium (Porcine) (Heparin 10 Unit/ ml 5 ml Flush) 1 ml PRN PRN FLUSH 10/14/17 01:00 11/13/17 00:59 10/16/17 06:19 1 ML Metolazone (Zaroxolyn Tab) 5 mg QAM PO 10/17/17 13:45 11/16/17 13:44 10/18/17 08:18 5 MG Furosemide 100 mg/ Syringe 10 ml @ 4 mls/min Q8 IV 10/17/17 14:00 11/16/17 13:59 10/18/17 06:17 4 MLS/MIN Morphine Sulfate (MoRPHine SULFATE INJ) 2 mg Q4H PRN IV 10/17/17 17:45 10/30/17 13:14 10/18/17 08:15 2 MG Review of Systems Constitutional: No fever, No chills Respiratory: + cough, + wheezing Abdomen: No pain, No nausea, No vomiting, No diarrhea, No constipation Musculoskeletal: + swelling (Generalized, ankles - feels it is improving slightly) Genitourinary - Male: No dysuria Integumentary: No rash Physical Exam Date Time Temp Pulse Resp B/P (MAP) Pulse Ox O2 Delivery O2 Flow Rate FiO2 10/18/17 07:56 36.9 76 18 129/54 (79) 94 Room Air 10/18/17 07:12 71 18 90 Room Air 10/18/17 04:00 Room Air 10/18/17 03:39 36.9 79 20 125/58 (80) 91 Room Air 10/18/17 03:04 65 20 97 Nasal Cannula 2.0 10/18/17 00:00 Room Air 10/17/17 23:24 36.8 66 17 143/70 (94) 100 Nasal Cannula 2.0 10/17/17 23:06 75 14 94 Room Air 10/17/17 20:00 Room Air 10/17/17 19:17 36.4 74 24 170/50 (90) 91 Room Air 10/17/17 18:54 76 18 96 Room Air 10/17/17 16:19 36.6 73 24 141/66 (91) 93 Room Air 10/17/17 16:00 Room Air 10/17/17 14:26 73 20 96 Room Air 10/17/17 12:00 Room Air 10/17/17 11:59 77 24 136/80 (98) 95 Room Air Percutaneous tube in place - 75 ml output 10/17/17 - appears bilious in nature. General Appearance: no apparent distress, + pertinent finding (Patient sitting up in chair, becomes winded with conversation, no cyanosis or clubbing.) Head: normocephalic, atraumatic Neck: trachea midline Respiratory/Chest: + accessory muscle use Abdomen/GI: non tender, soft, no organomegaly, no pulsatile mass, + distended ( Mild generalized distention. ) Skin: normal color Laboratory Results Last 24 Hours Test 10/17/17 11:32 10/17/17 16:20 10/17/17 19:54 10/18/17 06:30 Bedside Glucose 99 mg/dl 156 mg/dl 190 mg/dl 121 mg/dl Test 10/18/17 07:46 White Blood Count 10.39 K/uL Red Blood Count 2.97 M/uL Hemoglobin 8.8 g/dL Hematocrit 29.3 % Mean Corpuscular Volume 98.7 fL Mean Corpuscular Hemoglobin 29.6 pg Mean Corpuscular Hemoglobin Concent 30.0 g/dl Platelet Count 188 K/uL Mean Platelet Volume 8.4 fL Neutrophils (%) (Auto) 63.3 % Lymphocytes (%) (Auto) 16.8 % Monocytes (%) (Auto) 6.4 % Eosinophils (%) (Auto) 13.1 % Basophils (%) (Auto) 0.2 % Neutrophils # (Auto) 6.57 K/uL Lymphocytes # (Auto) 1.75 K/uL Monocytes # (Auto) 0.67 K/uL Eosinophils # (Auto) 1.36 K/uL Basophils # (Auto) 0.02 K/uL RDW Standard Deviation 77.9 fL RDW Coefficient of Variation 21.8 % Immature Granulocyte % (Auto) 0.2 % Immature Granulocyte # (Auto) 0.02 K/uL Anisocytosis PRESENT Sodium Level 142 mmol/L Potassium Level 3.3 mmol/L Chloride Level 102 mmol/L Carbon Dioxide Level 32 mmol/L Anion Gap 8.0 mmol/L Blood Urea Nitrogen 44 mg/dl Creatinine 1.84 mg/dl Est Creatinine Clear Calc Drug Dose 52.9 ml/min Estimated GFR () 44.2 Estimated GFR (Non- 38.2 BUN/Creatinine Ratio 24.1 Random Glucose 97 mg/dl Calcium Level 8.6 mg/dl Magnesium Level 1.8 mg/dl Assessment & Plan Chronic cholecystitis, percutaneous tube in place Case discussed with Dr. Bagley Denies gallbladder symptoms at this time. tube in place - 75ml output biliary - dressings dry, intact. Tolerating AHA low-sodium DM II diet - slightly bloated after eating, no nausea or vomiting. Urinating okay, +BM Patient will likely need his GB removed as an outpatient - possibly at a tertiary center given his comorbid conditions. Will continue to follow - Feel free to contact with any questions or concerns. 10/18/17- see consult above- pt adm w/ pulmonary edema and CHF from [facility] Recent adm to [facility] with cholecystitis, cardiac arrest, v tach, defibrillator and cholecystostomy tube placed- d/c'd recently to [facility]. Cholecystostomy tube seems to be functioning with bilious drainage- no changes in mgt. No plan for surgery at [facility] - will need followup in [place] when felt stable from cardiac standpoint or if tube comes out. If concern for tube function- can perform contrast injection in radiology- seems ok now.
--- NOTE | 2017-10-18 15:52 | Cardiology Follow-Up ---
Subjective General Date of Service: Oct 18, 2017. Chief Complaint: follow up shortness of breath, LE edema, abdominal distension Pt evaluation today including: conversation w/ patient, physical exam History of Present Illness The patient is a 62 year old male seen in follow up. Still edematous. Allergies Coded Allergies: Amoxicillin (Verified Allergy, Unknown, UNKNOWN, 10/12/17) Clavulanic Acid (Verified Allergy, Unknown, UNKNOWN, 10/12/17) Social History Smoking Status: Former Smoker Hx Tobacco Use In Past Year?: No Hx Alcohol Use - Type And Amou: No Hx Substance Use - Type And Am: No Problem List Medical Problems: (1) Pulmonary edema Status: Acute Physical Exam Vital Signs Last Vital Signs Documentation Date Time Temp Pulse Resp B/P (MAP) Pulse Ox O2 Delivery O2 Flow Rate FiO2 10/18/17 15:17 72 18 95 Room Air 10/18/17 11:49 36.6 111/56 (74) 10/18/17 03:04 2.0 Physical Exam Constitutional: Level of Distress: chronically ill ENMT: normal ENT inspection Neck: trachea midline Lungs: Auscultation: pertinent finding (decreased BS at bases ) Cardiovascular: Heart Auscultation: RRR, no murmurs Abdomen: Inspection & Palpation: distended Extremities: pertinent finding (2-3+ edema ) Neurologic: Gait & Station: pertinent finding (no focal neurologic changes ) Additional Comments: scrotal edema Assessment and Plan Assessment and Plan Impression: 62-year-old male 1. Volume overload due to acute on chronic systolic heart failure, in the setting of multivessel CAD, and kidney disease 2. Cardiac catheter[place] [facility] 08/23/17, 60% mid LAD, 70% mid circumflex, 90 % mid right coronary artery stenosis, 60% RPDA stenosis 3. Chronic cholecystitis, status post percutaneous drainage 4. History of VF arrest in the setting of acute cholecystitis prior to percutaneous drainage 5. Bradycardia prior to PM/ AICD implant 6. Status post dual-chamber AICD August, 7. Rate controlled atrial fibrillation 8. Factor V Leiden mutation positive Recommendations: Nephro input noted and appreciated. Lasix increased to 100 mg IV TID plus metolazone Holding Entresto, to allow more aggressive diuretic therapy. Continue Eliquis. Thanh Reddy DO Laboratory Results Last 24 Hours Test 10/17/17 16:20 10/17/17 19:54 10/18/17 06:30 10/18/17 07:46 Bedside Glucose 156 mg/dl 190 mg/dl 121 mg/dl White Blood Count 10.39 K/uL Red Blood Count 2.97 M/uL Hemoglobin 8.8 g/dL Hematocrit 29.3 % Mean Corpuscular Volume 98.7 fL Mean Corpuscular Hemoglobin 29.6 pg Mean Corpuscular Hemoglobin Concent 30.0 g/dl Platelet Count 188 K/uL Mean Platelet Volume 8.4 fL Neutrophils (%) (Auto) 63.3 % Lymphocytes (%) (Auto) 16.8 % Monocytes (%) (Auto) 6.4 % Eosinophils (%) (Auto) 13.1 % Basophils (%) (Auto) 0.2 % Neutrophils # (Auto) 6.57 K/uL Lymphocytes # (Auto) 1.75 K/uL Monocytes # (Auto) 0.67 K/uL Eosinophils # (Auto) 1.36 K/uL Basophils # (Auto) 0.02 K/uL RDW Standard Deviation 77.9 fL RDW Coefficient of Variation 21.8 % Immature Granulocyte % (Auto) 0.2 % Immature Granulocyte # (Auto) 0.02 K/uL Anisocytosis PRESENT Sodium Level 142 mmol/L Potassium Level 3.3 mmol/L Chloride Level 102 mmol/L Carbon Dioxide Level 32 mmol/L Anion Gap 8.0 mmol/L Blood Urea Nitrogen 44 mg/dl Creatinine 1.84 mg/dl Est Creatinine Clear Calc Drug Dose 52.9 ml/min Estimated GFR () 44.2 Estimated GFR (Non- 38.2 BUN/Creatinine Ratio 24.1 Random Glucose 97 mg/dl Calcium Level 8.6 mg/dl Magnesium Level 1.8 mg/dl Test 10/18/17 11:10 Bedside Glucose 150 mg/dl
[2017-10-18] MEDS: NIASPAN 500 MG TABCR PO SCH (20:32)
[2017-10-18] MEDS: INSULIN GLARGINE SOLOSTAR 100 UNITS/ML 3 ML PEN SC SCH (21:00)
[2017-10-19] VITALS (17 sets, daily range): BP systolic 104–166; BP diastolic 39–57; PULSE 60–82; TEMP 36.4–37; O2SAT 90–100
[2017-10-19] MEDS: ALBUTEROL 0.083% NEBU SOLN 3 ML VIAL INH SCH ×6 (03:07→23:08)
[2017-10-19] MEDS: FUROSEMIDE INJ 100 MG in SYRINGE 0 ML IV SCH ×3 (06:16→20:35)
[2017-10-19] MEDS: PANTOprazole SOD 40 MG TAB PO SCH (06:16)
[2017-10-19 06:25] LABS: HEMATOCRIT 27.3 % (42-52); MEAN CELL VOLUME 99.6 fL (80-100); MEAN CORPUSCULAR HEMOGLOBIN 29.6 pg (25-34); MEAN CORPUSCULAR HGB CONC 29.7 g/dl (32-36); MEAN PLATELET VOLUME 8.5 fL (7.4-10.4); PLATELET COUNT 168 K/uL (130-400); RED BLOOD COUNT 2.74 M/uL (4.7-6.1); WHITE BLOOD COUNT 10.34 K/uL (4.8-10.8)
--- NOTE | 2017-10-19 07:07 | Surgery Progress Note ---
Surgery Progress Note Date of Service Oct 19, 2017. Subjective no acute changes Objective Vital Signs: Date Time Temp Pulse Resp B/P (MAP) Pulse Ox O2 Delivery O2 Flow Rate FiO2 10/19/17 04:00 Room Air 10/19/17 03:08 76 18 96 Room Air 10/19/17 02:36 36.8 62 20 121/50 (73) 91 Room Air 10/19/17 00:30 36.7 64 22 143/39 (73) 92 Room Air 10/19/17 00:01 Room Air 10/18/17 23:16 70 18 93 Room Air 10/18/17 20:00 Room Air 10/18/17 19:28 77 18 91 Room Air 10/18/17 16:39 36.5 75 30 130/45 (73) 94 Room Air 10/18/17 16:00 98 Room Air 10/18/17 15:17 72 18 95 Room Air 10/18/17 12:00 92 Room Air 10/18/17 11:49 36.6 65 24 111/56 (74) 92 10/18/17 08:00 94 Room Air 10/18/17 07:56 36.9 76 18 129/54 (79) 94 Room Air 10/18/17 07:12 71 18 90 Room Air Laboratory Results: Results Past 24 Hours Test 10/18/17 07:46 10/18/17 11:10 10/18/17 16:38 10/18/17 20:21 Range/Units White Blood Count 10.39 4.8-10.8 K/uL Red Blood Count 2.97 4.7-6.1 M/uL Hemoglobin 8.8 14.0-18.0 g/dL Hematocrit 29.3 42-52 % Mean Corpuscular Volume 98.7 80-100 fL Mean Corpuscular Hemoglobin 29.6 25-34 pg Mean Corpuscular Hemoglobin Concent 30.0 32-36 g/dl Platelet Count 188 130-400 K/uL Mean Platelet Volume 8.4 7.4-10.4 fL Neutrophils (%) (Auto) 63.3 % Lymphocytes (%) (Auto) 16.8 % Monocytes (%) (Auto) 6.4 % Eosinophils (%) (Auto) 13.1 % Basophils (%) (Auto) 0.2 % Neutrophils # (Auto) 6.57 1.4-6.5 K/uL Lymphocytes # (Auto) 1.75 1.2-3.4 K/uL Monocytes # (Auto) 0.67 0.11-0.59 K/uL Eosinophils # (Auto) 1.36 0-0.5 K/uL Basophils # (Auto) 0.02 0-0.2 K/uL RDW Standard Deviation 77.9 36.4-46.3 fL RDW Coefficient of Variation 21.8 11.5-14.5 % Immature Granulocyte % (Auto) 0.2 % Immature Granulocyte # (Auto) 0.02 0.00-0.02 K/uL Anisocytosis PRESENT Sodium Level 142 136-145 mmol/L Potassium Level 3.3 3.5-5.1 mmol/L Chloride Level 102 98-107 mmol/L Carbon Dioxide Level 32 21-32 mmol/L Anion Gap 8.0 3-11 mmol/L Blood Urea Nitrogen 44 7-18 mg/dl Creatinine 1.84 0.60-1.40 mg/dl Est Creatinine Clear Calc Drug Dose 52.9 ml/min Estimated GFR () 44.2 Estimated GFR (Non- 38.2 BUN/Creatinine Ratio 24.1 10-20 Random Glucose 97 70-99 mg/dl Calcium Level 8.6 8.5-10.1 mg/dl Magnesium Level 1.8 1.8-2.4 mg/dl Bedside Glucose 150 145 160 70-99 mg/dl Test 10/19/17 06:05 10/19/17 06:16 Range/Units White Blood Count 10.34 4.8-10.8 K/uL Red Blood Count 2.74 4.7-6.1 M/uL Hemoglobin 8.1 14.0-18.0 g/dL Hematocrit 27.3 42-52 % Mean Corpuscular Volume 99.6 80-100 fL Mean Corpuscular Hemoglobin 29.6 25-34 pg Mean Corpuscular Hemoglobin Concent 29.7 32-36 g/dl RDW Standard Deviation 79.1 36.4-46.3 fL RDW Coefficient of Variation 22.2 11.5-14.5 % Platelet Count 168 130-400 K/uL Mean Platelet Volume 8.5 7.4-10.4 fL Bedside Glucose 94 70-99 mg/dl Assessment & Plan 10/19/17-Pt will need f/u with General Surgery in [place] in next couple of weeks. They will need his medical status to be much more stable to consider cholecystectomy. Call with questions- will sign off for now
[2017-10-19 07:09] LABS: BUN/CREATININE RATIO 23.5 (10-20); CREATININE 1.86 mg/dl (0.60-1.40); MAGNESIUM 1.9 mg/dl (1.8-2.4); POTASSIUM 3.4 mmol/L (3.5-5.1)
[2017-10-19] MEDS: BOOST VANILLA PUDDING CUP PO SCH ×3 (07:30→16:54)
[2017-10-19] MEDS: MoRPHine SULFATE 2 MG/ML CARP IV PRN ×2 (08:08→20:50)
[2017-10-19] MEDS: DONEPEZIL HCL 5 MG TAB PO SCH (08:09)
[2017-10-19] MEDS: CARVEDILOL 3.125 MG TAB PO SCH ×2 (08:09→16:55)
[2017-10-19] MEDS: DOCUSATE SODIUM 100 MG CAP PO SCH ×2 (08:09→20:34)
[2017-10-19] MEDS: COLLAGENASE OINT 30 GM TUBE EXT SCH (08:10)
[2017-10-19] MEDS: ASPIRIN 81 MG CHEW PO SCH (08:10)
[2017-10-19] MEDS: LACTOBACILLUS ACIDOPHILUS (FLORANEX) TAB PO SCH ×2 (08:11→20:34)
[2017-10-19] MEDS: METOLAZONE 5 MG TAB PO SCH (08:11)
[2017-10-19] MEDS: APIXABAN 2.5 MG TAB PO SCH ×2 (08:11→20:35)
[2017-10-19] MEDS: LIDODERM (LIDOCAINE) PATCH 5% TD SCH (08:11)
[2017-10-19] MEDS: INSULIN ASPART 100 UNITS/ML 3 ML PEN SC SCH ×4 (08:18→20:37)
[2017-10-19] MEDS ORDERED: POTASSIUM CHLORIDE 10 MEQ TABCR PO ONE (09:00)
--- NOTE | 2017-10-19 09:14 | Nephrology Progress Note ---
Nephrology Progress Note Date of Service: Oct 19, 2017. Subjective 62 yo male seen for follow up of ckd and volume overload. has drains in place for his gallbladder. has been diuresing nicely. pt feels less tight in his legs and able to walk around better. arms are feeling better as well. Objective Date Time Temp Pulse Resp B/P (MAP) Pulse Ox O2 Delivery O2 Flow Rate FiO2 10/19/17 07:55 37.0 62 20 166/57 (93) 100 10/19/17 07:15 65 18 92 Room Air 10/19/17 04:00 Room Air 10/19/17 03:08 76 18 96 Room Air 10/19/17 02:36 36.8 62 20 121/50 (73) 91 Room Air 10/19/17 00:30 36.7 64 22 143/39 (73) 92 Room Air 10/19/17 00:01 Room Air 10/18/17 23:16 70 18 93 Room Air 10/18/17 20:00 Room Air 10/18/17 19:28 77 18 91 Room Air 10/18/17 16:39 36.5 75 30 130/45 (73) 94 Room Air 10/18/17 16:00 98 Room Air 10/18/17 15:17 72 18 95 Room Air 10/18/17 12:00 92 Room Air 10/18/17 11:49 36.6 65 24 111/56 (74) 92 Physical Exam: General-aaox3 Eyes-no scleral icterus ENT-mmm Neck-supple Lungs-cta Heart-rrr -enlarged scrotum Abdomen-+ruq drains in place Extremities-+1 to 2 edema with wounds on lower extremities wrapped Neuro-nonfocal Current Inpatient Medications Medications (Trade) Dose Ordered Sig/Randa Route Start Time Stop Time Status Last Admin Dose Admin Miscellaneous (Iv Fluids Completed) 1 ea PRN PRN N/A 10/12/17 16:30 10/12/18 16:29 Acetaminophen (Tylenol Tab) 500 mg Q4H PRN PO 10/12/17 17:15 11/11/17 17:14 10/14/17 23:54 500 MG Albuterol Sulfate (Ventolin 0.083% 2.5MG/3ML Neb) 2.5 mg Q4R INH 10/12/17 20:00 11/11/17 19:59 11/28/17 07:15 2.5 MG Aspirin (Aspirin Chew) 81 mg QAM PO 10/13/17 09:00 11/12/17 08:59 10/19/17 08:10 81 MG Bisacodyl (Dulcolax Supp) 10 mg DAILY PRN [place] 10/12/17 17:15 11/11/17 17:14 Carvedilol (Coreg Tab) 3.125 mg BIDM PO 10/12/17 17:42 11/11/17 17:59 10/19/17 08:09 3.125 MG Collagenase (Santyl Oint) 1 appln DAILY EXT 10/13/17 09:00 11/12/17 08:59 10/19/17 08:10 1 APPLN Docusate Sodium (coLACE CAP) 100 mg BID PO 10/12/17 21:00 11/11/17 20:59 10/19/17 08:09 100 MG Donepezil HCl (Aricept Tab) 5 mg QAM PO 10/13/17 09:00 11/12/17 08:59 10/19/17 08:09 5 MG Insulin Glargine (Lantus Solostar Pen) 40 units HS SC 10/12/17 21:00 11/11/17 20:59 10/18/17 21:00 40 UNITS Lactobacillus Acidophilus (Floranex Tab) 2 tab BID PO 10/12/17 21:00 11/11/17 20:59 10/19/17 08:11 2 TAB Lidocaine (Lidoderm Patch 5%) 1 patch QAM TD 10/13/17 09:00 11/12/17 08:59 10/19/17 08:11 1 PATCH Magnesium Hydroxide (Milk Of Magnesia Susp) 30 ml DAILY PRN PO 10/12/17 17:15 11/11/17 17:14 Niacin (Niaspan Extended Rel Tab) 1,000 mg HS PO 10/12/17 21:00 11/11/17 20:59 10/18/17 20:32 1,000 MG Pantoprazole Sodium (Protonix Tab) 40 mg DAILYBB PO 10/13/17 06:00 11/12/17 06:59 10/19/17 06:16 40 MG Senna/Docusate Sodium (Senokot S Tab) 1 tab QDL PRN PO 10/12/17 17:15 11/11/17 17:14 10/19/17 08:08 1 TAB Apixaban (Eliquis Tab) 5 mg Q12 PO 10/12/17 21:00 11/11/17 20:59 10/19/17 08:11 5 MG Polyethylene (Miralax Powder Packet) 17 gm QDL PRN PO 10/12/17 17:15 11/11/17 17:14 Miscellaneous (Remove Lidoderm Patch) 1 ea DAILY@21 N/A 10/12/17 21:00 11/11/17 20:59 10/18/17 21:00 1 EA Sodium Biphosphate/ Sodium Phosphate (Fleet Enema) 132 ml DAILY PRN [place] 10/12/17 17:30 11/11/17 17:29 Glucose (Glucose 40% Gel) 15-30 GRAMS 15 GRAMS... UD PRN PO 10/12/17 18:00 11/11/17 17:59 Glucose (Glucose Chew Tab) 4-8 Tablets 4 Tabl... UD PRN PO 10/12/17 18:00 11/11/17 17:59 Dextrose (Dextrose 50% 50ML Syringe) 25-50ML OF 50% DW IV FOR... UD PRN IV 10/12/17 18:00 11/11/17 17:59 Glucagon (Glucagon Inj) 1 mg UD PRN SQ 10/12/17 18:00 11/11/17 17:59 Insulin Aspart (novoLOG ASPART) SLIDING SCALE If C... ACHS SC 10/12/17 21:00 11/11/17 20:59 10/19/17 08:18 1 UNITS Enteral Nutritional Formula (Boost Pudding) 1 cup BIDM PO 10/14/17 07:30 11/13/17 07:29 10/18/17 08:16 1 CUP Heparin Sodium (Porcine) (Heparin 10 Unit/ ml 5 ml Flush) 1 ml PRN PRN FLUSH 10/14/17 01:00 11/13/17 00:59 10/19/17 08:08 1 ML Metolazone (Zaroxolyn Tab) 5 mg QAM PO 10/17/17 13:45 11/16/17 13:44 10/19/17 08:11 5 MG Furosemide 100 mg/ Syringe 10 ml @ 4 mls/min Q8 IV 10/17/17 14:00 11/16/17 13:59 10/19/17 06:16 4 MLS/MIN Morphine Sulfate (MoRPHine SULFATE INJ) 2 mg Q4H PRN IV 10/17/17 17:45 10/30/17 13:14 10/19/17 08:08 2 MG Potassium Chloride (Klor-Con M10) 40 meq 0900 ONCE PO 10/19/17 09:00 10/19/17 09:01 Last 24 Hours Test 10/18/17 11:10 10/18/17 16:38 10/18/17 20:21 10/19/17 06:05 Bedside Glucose 150 mg/dl 145 mg/dl 160 mg/dl White Blood Count 10.34 K/uL Red Blood Count 2.74 M/uL Hemoglobin 8.1 g/dL Hematocrit 27.3 % Mean Corpuscular Volume 99.6 fL Mean Corpuscular Hemoglobin 29.6 pg Mean Corpuscular Hemoglobin Concent 29.7 g/dl RDW Standard Deviation 79.1 fL RDW Coefficient of Variation 22.2 % Platelet Count 168 K/uL Mean Platelet Volume 8.5 fL Sodium Level 140 mmol/L Potassium Level 3.4 mmol/L Chloride Level 101 mmol/L Carbon Dioxide Level 34 mmol/L Anion Gap 5.0 mmol/L Blood Urea Nitrogen 44 mg/dl Creatinine 1.86 mg/dl Est Creatinine Clear Calc Drug Dose 51.7 ml/min Estimated GFR () 43.6 Estimated GFR (Non- 37.7 BUN/Creatinine Ratio 23.5 Random Glucose 91 mg/dl Calcium Level 8.0 mg/dl Magnesium Level 1.9 mg/dl Total Bilirubin 0.7 mg/dl Direct Bilirubin 0.2 mg/dl Aspartate Amino Transf (AST/SGOT) 11 U/L Alanine Aminotransferase (ALT/SGPT) 13 U/L Alkaline Phosphatase 115 U/L Total Protein 6.1 gm/dl Albumin 2.2 gm/dl Test 10/19/17 06:16 Bedside Glucose 94 mg/dl Assessment & Plan ckd stage 3-creatinine slowly trending up in the setting of appropriate diuresis. acceptable. continue current diuretics. Volume overload-pt currently on lasix 100 iv q8 and 5 of metolazone daily. albumin low. no proteinuria on ua. to check spep to be thorough. Anemia-to check iron sats to see if he would benefit from iv iron. Scrotal enlargement-small hydroceles. should improve with diuresis.
--- NOTE | 2017-10-19 15:30 | Cardiology Follow-Up ---
Subjective General Date of Service: Oct 19, 2017. Chief Complaint: follow up shortness of breath, LE edema, abdominal distension Pt evaluation today including: conversation w/ patient, physical exam History of Present Illness The patient is a 62 year old male seen in follow up. Telemetry reveals AF, V pacing, occasional PVCs. Allergies Coded Allergies: Amoxicillin (Verified Allergy, Unknown, UNKNOWN, 10/12/17) Clavulanic Acid (Verified Allergy, Unknown, UNKNOWN, 10/12/17) Social History Smoking Status: Former Smoker Hx Tobacco Use In Past Year?: No Hx Alcohol Use - Type And Amou: No Hx Substance Use - Type And Am: No Problem List Medical Problems: (1) Pulmonary edema Status: Acute Physical Exam Vital Signs Last Vital Signs Documentation Date Time Temp Pulse Resp B/P (MAP) Pulse Ox O2 Delivery O2 Flow Rate FiO2 10/19/17 15:10 66 18 93 Room Air 10/19/17 11:58 36.6 139/49 (79) 10/18/17 03:04 2.0 Physical Exam Constitutional: Level of Distress: chronically ill ENMT: normal ENT inspection Neck: trachea midline Lungs: Auscultation: pertinent finding (decreased BS at bases ) Cardiovascular: Heart Auscultation: RRR, no murmurs Abdomen: Inspection & Palpation: distended Extremities: pertinent finding (2-3+ edema ) Neurologic: Gait & Station: pertinent finding (no focal neurologic changes ) Assessment and Plan Assessment and Plan Impression: 62-year-old male 1. Volume overload due to acute on chronic systolic heart failure, in the setting of multivessel CAD, and kidney disease 2. [place] [facility] [place], 60% mid LAD, 70% mid circumflex, 90 % mid right coronary artery stenosis, 60% RPDA stenosis 3. Chronic cholecystitis, status post percutaneous drainage 4. History of VF arrest in the setting of acute cholecystitis prior to percutaneous drainage 5. Bradycardia prior to PM/ AICD implant 6. Status post dual-chamber AICD August, 7. Rate controlled atrial fibrillation 8. Factor V Leiden mutation positive Recommendations: Diuresing on furosemide 100 Mg IV TID and metolazone Holding Entresto, to allow more aggressive diuretic therapy. Continue Eliquis. Thanh Reddy DO Laboratory Results Last 24 Hours Test 10/18/17 16:38 10/18/17 20:21 10/19/17 06:05 10/19/17 06:16 Bedside Glucose 145 mg/dl 160 mg/dl 94 mg/dl White Blood Count 10.34 K/uL Red Blood Count 2.74 M/uL Hemoglobin 8.1 g/dL Hematocrit 27.3 % Mean Corpuscular Volume 99.6 fL Mean Corpuscular Hemoglobin 29.6 pg Mean Corpuscular Hemoglobin Concent 29.7 g/dl RDW Standard Deviation 79.1 fL RDW Coefficient of Variation 22.2 % Platelet Count 168 K/uL Mean Platelet Volume 8.5 fL Sodium Level 140 mmol/L Potassium Level 3.4 mmol/L Chloride Level 101 mmol/L Carbon Dioxide Level 34 mmol/L Anion Gap 5.0 mmol/L Blood Urea Nitrogen 44 mg/dl Creatinine 1.86 mg/dl Est Creatinine Clear Calc Drug Dose 51.7 ml/min Estimated GFR () 43.6 Estimated GFR (Non- 37.7 BUN/Creatinine Ratio 23.5 Random Glucose 91 mg/dl Calcium Level 8.0 mg/dl Magnesium Level 1.9 mg/dl Total Bilirubin 0.7 mg/dl Direct Bilirubin 0.2 mg/dl Aspartate Amino Transf (AST/SGOT) 11 U/L Alanine Aminotransferase (ALT/SGPT) 13 U/L Alkaline Phosphatase 115 U/L Total Protein 6.1 gm/dl Albumin 2.2 gm/dl Test 10/19/17 11:23 Bedside Glucose 107 mg/dl
--- NOTE | 2017-10-19 16:33 | Progress Note ---
Medicine Progress Note Date & Time of Visit: Oct 19, 2017 at 16:27. Subjective seen resting in bed, comfortable not in distress states he feels fine overall denies chest pain, palpitations, dizziness, nausea/vomiting no other symptoms Objective Last 8 Hrs Date Time Temp Pulse Resp B/P (MAP) Pulse Ox O2 Delivery O2 Flow Rate FiO2 10/19/17 15:34 36.4 71 29 104/52 (69) 92 Room Air 10/19/17 15:10 66 18 93 Room Air 10/19/17 12:00 95 Room Air 10/19/17 11:58 36.6 60 20 139/49 (79) 95 Room Air 10/19/17 11:24 62 18 94 Room Air Physical Exam: General- oriented x 3, not in distress, speaks in sentences with no effort Head- atraumatic Eyes- EOMI, anicteric ENT- oropharynx clear Neck- supple, no JVD, no adenopath Lungs- clear to auscultation b/l Heart- regular rhythm; no murmur, normal rate Abdomen- normal bowel sounds, soft, nontender Extremities- no pretibial edema, no calf tenderness; peripheral pulses intact Neuro- alert, oriented x 3; no gross focal deficits Skin- warm & dry Laboratory Results: Last 24 Hours Test 10/18/17 16:38 10/18/17 20:21 10/19/17 06:05 10/19/17 06:16 Bedside Glucose 145 mg/dl 160 mg/dl 94 mg/dl White Blood Count 10.34 K/uL Red Blood Count 2.74 M/uL Hemoglobin 8.1 g/dL Hematocrit 27.3 % Mean Corpuscular Volume 99.6 fL Mean Corpuscular Hemoglobin 29.6 pg Mean Corpuscular Hemoglobin Concent 29.7 g/dl RDW Standard Deviation 79.1 fL RDW Coefficient of Variation 22.2 % Platelet Count 168 K/uL Mean Platelet Volume 8.5 fL Sodium Level 140 mmol/L Potassium Level 3.4 mmol/L Chloride Level 101 mmol/L Carbon Dioxide Level 34 mmol/L Anion Gap 5.0 mmol/L Blood Urea Nitrogen 44 mg/dl Creatinine 1.86 mg/dl Est Creatinine Clear Calc Drug Dose 51.7 ml/min Estimated GFR () 43.6 Estimated GFR (Non- 37.7 BUN/Creatinine Ratio 23.5 Random Glucose 91 mg/dl Calcium Level 8.0 mg/dl Magnesium Level 1.9 mg/dl Total Bilirubin 0.7 mg/dl Direct Bilirubin 0.2 mg/dl Aspartate Amino Transf (AST/SGOT) 11 U/L Alanine Aminotransferase (ALT/SGPT) 13 U/L Alkaline Phosphatase 115 U/L Total Protein 6.1 gm/dl Albumin 2.2 gm/dl Test 10/19/17 11:23 Bedside Glucose 107 mg/dl Assessment & Plan Acute on chronic CHF exacerbation H/O Ischemic Cardiomyopathy ECHO: EF: 35-40% as below s/p ICD CXR:Congestive failure versus mild pulmonary edema Venous Doppler: No DVT Scrotal swelling: Small bilateral hydroceles diuresing well continue Lasix 100mg TID + Zaroxolyn 5mg daily Entresto held for now Appreciate Cardiology/Nephrology Input CAD S/P CABG Denies chest pain continue Aspirin, Co Reg Not on stains at home H/O cholecystitis: S/P percutaneous drain Needs follow up with surgery as outpatient for cholecystectomy as outpatient Percutaneous drain shows serous drainage (Not bile looking) appreciate Surgery SVC eval H/O atrial fibrillation: Rate controlled Continue Coreg continue Apixaban DM II: Continue ISS, Lantus Monitor BS levels CKD III: Cr:mid 2s at baseline Cr:1.62>>1.66>>1.62>>1.63>>>1.77>.1.84 Cr low likely secondary to dilutional from anasarca Monitor renal function ? Dementia: Continue home dose of donepezil Oral Thrush: Was on Nystatin 5 ml QID PO and Diflucan 200 mg IV daily prior to admission started on 09/30/17 Completed 2 week course of Nystatin, Diflucan H/O C.diff: No on any meds prior to admission Stool for c.diff:Negative B/L Leg wounds Wound care consulted Morbid Obesity: BMI:47 DVT px: on Apixaban Disposition: Plan to discharge to [facility] when medically cleared PROCEDURES: ECHO: * The left ventricle is severely dilated. * Ejection Fraction = 35-40%. * The right ventricle is grossly normal size. * The right ventricular systolic function is normal. * Pulmonary hypertension. Estimated pulmonary systolic pressure around 50- 55 mmHG. * There is moderate mitral regurgitation. * There is moderate tricuspid regurgitation. Venous Doppler: No DVT within the right or left lower extremity CXR: Congestive failure versus mild pulmonary edema Testicular USD: 1. Normal testes bilaterally. 2. Normal vascular flow to both testis. 3. Small bilateral hydroceles. Current Inpatient Medications: Current Inpatient Medications Medications (Trade) Dose Ordered Sig/Randa Route Start Time Stop Time Status Last Admin Dose Admin Miscellaneous (Iv Fluids Completed) 1 ea PRN PRN N/A 10/12/17 16:30 10/12/18 16:29 Acetaminophen (Tylenol Tab) 500 mg Q4H PRN PO 10/12/17 17:15 11/11/17 17:14 10/14/17 23:54 500 MG Albuterol Sulfate (Ventolin 0.083% 2.5MG/3ML Neb) 2.5 mg Q4R INH 10/12/17 20:00 11/11/17 19:59 10/19/17 15:10 2.5 MG Aspirin (Aspirin Chew) 81 mg QAM PO 10/13/17 09:00 11/12/17 08:59 10/19/17 08:10 81 MG Bisacodyl (Dulcolax Supp) 10 mg DAILY PRN TX 10/12/17 17:15 11/11/17 17:14 Carvedilol (Coreg Tab) 3.125 mg BIDM PO 10/12/17 17:42 11/11/17 17:59 10/19/17 08:09 3.125 MG Collagenase (Santyl Oint) 1 appln DAILY EXT 10/13/17 09:00 11/12/17 08:59 10/19/17 08:10 1 APPLN Docusate Sodium (coLACE CAP) 100 mg BID PO 10/12/17 21:00 11/11/17 20:59 10/19/17 08:09 100 MG Donepezil HCl (Aricept Tab) 5 mg QAM PO 10/13/17 09:00 11/12/17 08:59 10/19/17 08:09 5 MG Insulin Glargine (Lantus Solostar Pen) 40 units HS SC 10/12/17 21:00 11/11/17 20:59 10/18/17 21:00 40 UNITS Lactobacillus Acidophilus (Floranex Tab) 2 tab BID PO 10/12/17 21:00 11/11/17 20:59 10/19/17 08:11 2 TAB Lidocaine (Lidoderm Patch 5%) 1 patch QAM TD 10/13/17 09:00 11/12/17 08:59 10/19/17 08:11 1 PATCH Magnesium Hydroxide (Milk Of Magnesia Susp) 30 ml DAILY PRN PO 10/12/17 17:15 11/11/17 17:14 Niacin (Niaspan Extended Rel Tab) 1,000 mg HS PO 10/12/17 21:00 11/11/17 20:59 10/18/17 20:32 1,000 MG Pantoprazole Sodium (Protonix Tab) 40 mg DAILYBB PO 10/13/17 06:00 11/12/17 06:59 10/19/17 06:16 40 MG Senna/Docusate Sodium (Senokot S Tab) 1 tab QDL PRN PO 10/12/17 17:15 11/11/17 17:14 10/19/17 08:08 1 TAB Apixaban (Eliquis Tab) 5 mg Q12 PO 10/12/17 21:00 11/11/17 20:59 10/19/17 08:11 5 MG Polyethylene (Miralax Powder Packet) 17 gm QDL PRN PO 10/12/17 17:15 11/11/17 17:14 Miscellaneous (Remove Lidoderm Patch) 1 ea DAILY@21 N/A 10/12/17 21:00 11/11/17 20:59 10/18/17 21:00 1 EA Sodium Biphosphate/ Sodium Phosphate (Fleet Enema) 132 ml DAILY PRN TX 10/12/17 17:30 11/11/17 17:29 Glucose (Glucose 40% Gel) 15-30 GRAMS 15 GRAMS... UD PRN PO 10/12/17 18:00 11/11/17 17:59 Glucose (Glucose Chew Tab) 4-8 Tablets 4 Tabl... UD PRN PO 10/12/17 18:00 11/11/17 17:59 Dextrose (Dextrose 50% 50ML Syringe) 25-50ML OF 50% DW IV FOR... UD PRN IV 10/12/17 18:00 11/11/17 17:59 Glucagon (Glucagon Inj) 1 mg UD PRN SQ 10/12/17 18:00 11/11/17 17:59 Insulin Aspart (novoLOG ASPART) SLIDING SCALE If C... ACHS SC 10/12/17 21:00 11/11/17 20:59 10/19/17 12:39 1 UNITS Enteral Nutritional Formula (Boost Pudding) 1 cup BIDM PO 10/14/17 07:30 11/13/17 07:29 10/18/17 08:16 1 CUP Heparin Sodium (Porcine) (Heparin 10 Unit/ ml 5 ml Flush) 1 ml PRN PRN FLUSH 10/14/17 01:00 11/13/17 00:59 10/19/17 08:08 1 ML Metolazone (Zaroxolyn Tab) 5 mg QAM PO 10/17/17 13:45 11/16/17 13:44 10/19/17 08:11 5 MG Furosemide 100 mg/ Syringe 10 ml @ 4 mls/min Q8 IV 10/17/17 14:00 11/16/17 13:59 10/19/17 12:39 4 MLS/MIN Morphine Sulfate (MoRPHine SULFATE INJ) 2 mg Q4H PRN IV 10/17/17 17:45 10/30/17 13:14 10/19/17 08:08 2 MG
[2017-10-19] MEDS: NIASPAN 500 MG TABCR PO SCH (20:34)
[2017-10-19] MEDS: INSULIN GLARGINE SOLOSTAR 100 UNITS/ML 3 ML PEN SC SCH (20:37)
[2017-10-19] MEDS: ACETAMINOPHEN 500 MG TAB PO PRN (23:35)
[2017-10-20] VITALS (13 sets, daily range): BP systolic 133–147; BP diastolic 63–68; PULSE 71–85; TEMP 36.4–37.5; O2SAT 88–100
[2017-10-20] MEDS: ALBUTEROL 0.083% NEBU SOLN 3 ML VIAL INH SCH ×5 (03:28→19:06)
[2017-10-20] MEDS: PANTOprazole SOD 40 MG TAB PO SCH (06:00)
[2017-10-20] MEDS: FUROSEMIDE INJ 100 MG in SYRINGE 0 ML IV SCH ×2 (06:00→12:49)
--- NOTE | 2017-10-20 06:53 | Surgery Progress Note ---
Surgery Progress Note Date of Service Oct 20, 2017. Subjective minimal output from cholecystostomy tube Objective Vital Signs: Date Time Temp Pulse Resp B/P (MAP) Pulse Ox O2 Delivery O2 Flow Rate FiO2 10/20/17 04:29 36.4 71 26 133/63 (86) 95 Room Air 10/20/17 04:00 95 Room Air 10/20/17 03:28 85 20 94 Room Air 10/20/17 00:00 95 Room Air 10/19/17 23:30 36.7 65 24 117/53 (74) 95 Room Air 10/19/17 23:08 73 20 95 Room Air 10/19/17 20:00 95 Room Air 10/19/17 19:32 64 20 92 Room Air 10/19/17 19:00 36.6 82 25 124/52 (76) 90 Room Air 10/19/17 16:00 95 Room Air 10/19/17 15:34 36.4 71 29 104/52 (69) 92 Room Air 10/19/17 15:10 66 18 93 Room Air 10/19/17 12:00 95 Room Air 10/19/17 11:58 36.6 60 20 139/49 (79) 95 Room Air 10/19/17 11:24 62 18 94 Room Air 10/19/17 08:00 100 Room Air 10/19/17 07:55 37.0 62 20 166/57 (93) 100 10/19/17 07:15 65 18 92 Room Air General Appearance: no apparent distress Laboratory Results: Results Past 24 Hours Test 10/19/17 11:23 10/19/17 16:03 10/19/17 19:59 10/20/17 04:44 Range/Units Bedside Glucose 107 154 274 70-99 mg/dl Transferrin % Saturation 20-50 % Test 10/20/17 06:12 Range/Units Bedside Glucose 134 70-99 mg/dl cholecystostomy tube flushed by nurse- min output Assessment & Plan 10/20/17- consider contrast study of cholecystostomy tube to assess location- discuss with medical team/ Salma Buenrostro doctors need for replacement- would need to go back to [place] if needed. pt seems asx at present. Leave tube as is for now 10/19/17-Pt will need f/u with General Surgery in [place] in next couple of weeks. They will need his medical status to be much more stable to consider cholecystectomy. Call with questions- will sign off for now 10/19/17-Pt will need f/u with General Surgery in [place] in next couple of weeks. They will need his medical status to be much more stable to consider cholecystectomy. Call with questions- will sign off for now
[2017-10-20] MEDS: INSULIN ASPART 100 UNITS/ML 3 ML PEN SC SCH ×4 (07:00→21:00)
[2017-10-20 07:47] LABS: TOTAL IRON BINDING CAPACITY 168 mcg/dl (250-450)
[2017-10-20] MEDS: ACETAMINOPHEN 500 MG TAB PO PRN (08:18)
[2017-10-20] MEDS: BOOST VANILLA PUDDING CUP PO SCH (08:19)
[2017-10-20] MEDS: COLLAGENASE OINT 30 GM TUBE EXT SCH (08:19)
[2017-10-20] MEDS: DONEPEZIL HCL 5 MG TAB PO SCH (08:20)
[2017-10-20] MEDS: DOCUSATE SODIUM 100 MG CAP PO SCH ×2 (08:20→21:10)
[2017-10-20] MEDS: ASPIRIN 81 MG CHEW PO SCH (08:20)
[2017-10-20] MEDS: LACTOBACILLUS ACIDOPHILUS (FLORANEX) TAB PO SCH ×2 (08:20→21:10)
[2017-10-20] MEDS: CARVEDILOL 3.125 MG TAB PO SCH ×2 (08:21→16:09)
[2017-10-20] MEDS: APIXABAN 2.5 MG TAB PO SCH ×2 (08:21→21:10)
[2017-10-20] MEDS: METOLAZONE 5 MG TAB PO SCH (08:21)
[2017-10-20] MEDS: LIDODERM (LIDOCAINE) PATCH 5% TD SCH (08:22)
--- NOTE | 2017-10-20 08:22 | [facility] Operative Report ---
Operative Report Operative Date Oct 20, 2017. Pre-Operative Diagnosis op note entered in error- wrong pt Post-Operative Diagnosis error Procedure(s) Performed error Findings error Description of Procedure op note entered in error- wrong pt I attest to the content of the Intraoperative Record and any orders documented therein. Any exceptions are noted below.
[2017-10-20 08:54] LABS: HEMATOCRIT 30.3 % (42-52); MEAN CORPUSCULAR HEMOGLOBIN 29.7 pg (25-34); MEAN PLATELET VOLUME 8.7 fL (7.4-10.4); PLATELET COUNT 183 K/uL (130-400); RED BLOOD COUNT 3.06 M/uL (4.7-6.1); WHITE BLOOD COUNT 12.57 K/uL (4.8-10.8)
--- NOTE | 2017-10-20 09:28 | Cardiology Follow-Up ---
Subjective General Date of Service: Oct 20, 2017. Chief Complaint: follow up shortness of breath, LE edema, abdominal distension Pt evaluation today including: conversation w/ patient, physical exam History of Present Illness The patient is a 62 year old male seen in follow up. Feeling subjectively better. Telemetry reveals rate controlled AF, occasional PVCs. Allergies Coded Allergies: Amoxicillin (Verified Allergy, Unknown, UNKNOWN, 10/12/17) Clavulanic Acid (Verified Allergy, Unknown, UNKNOWN, 10/12/17) Social History Smoking Status: Former Smoker Hx Tobacco Use In Past Year?: No Hx Alcohol Use - Type And Amou: No Hx Substance Use - Type And Am: No Problem List Medical Problems: (1) Pulmonary edema Status: Acute Physical Exam Vital Signs Last Vital Signs Documentation Date Time Temp Pulse Resp B/P (MAP) Pulse Ox O2 Delivery O2 Flow Rate FiO2 10/20/17 07:33 36.9 75 25 146/68 (94) 100 Room Air 10/18/17 03:04 2.0 Physical Exam Constitutional: Level of Distress: chronically ill ENMT: normal ENT inspection Neck: trachea midline Lungs: Auscultation: pertinent finding (decreased BS at bases ) Cardiovascular: Heart Auscultation: RRR, no murmurs Abdomen: Inspection & Palpation: distended Extremities: pertinent finding (2-3+ edema ) Neurologic: Gait & Station: pertinent finding (no focal neurologic changes ) Assessment and Plan Assessment and Plan Impression: 62-year-old male 1. Volume overload due to acute on chronic systolic heart failure, in the setting of multivessel CAD, and kidney disease 2. Cardiac catheterization at [facility] [place] 08/23/17, 60% mid LAD, 70% mid circumflex, 90 % mid right coronary artery stenosis, 60% RPDA stenosis 3. Chronic cholecystitis, status post percutaneous drainage 4. History of VF arrest in the setting of acute cholecystitis prior to percutaneous drainage 5. Bradycardia prior to PM/ AICD implant 6. Status post dual-chamber AICD August, 7. Rate controlled atrial fibrillation 8. Factor V Leiden mutation positive Recommendations: Diuresing on furosemide 100 Mg IV TID and metolazone Holding Entresto, to allow more aggressive diuretic therapy. Continue Eliquis. Not on statin due to GB issues. Continue coreg. Update BMP tomorrow. Thanh Reddy DO Laboratory Results Last 24 Hours Test 10/19/17 11:23 10/19/17 16:03 10/19/17 19:59 10/20/17 06:12 Bedside Glucose 107 mg/dl 154 mg/dl 274 mg/dl 134 mg/dl Test 10/20/17 07:05 10/20/17 08:33 Iron Level 43 mcg/dl Total Iron Binding Capacity 168 mcg/dl Transferrin 138 mg/dl Transferrin % Saturation 22 % White Blood Count 12.57 K/uL Red Blood Count 3.06 M/uL Hemoglobin 9.1 g/dL Hematocrit 30.3 % Mean Corpuscular Volume 99.0 fL Mean Corpuscular Hemoglobin 29.7 pg Mean Corpuscular Hemoglobin Concent 30.0 g/dl RDW Standard Deviation 78.2 fL RDW Coefficient of Variation 21.7 % Platelet Count 183 K/uL Mean Platelet Volume 8.7 fL Nucleated RBC Absolute Count (auto) 0.02 K/uL Nucleated Red Blood Cells % 0.1 %
[2017-10-20] MEDS: MoRPHine SULFATE 2 MG/ML CARP IV PRN ×2 (10:12→19:11)
[2017-10-20 11:16] LABS: BUN/CREATININE RATIO 21.8 (10-20); CALCIUM 8.8 mg/dl (8.5-10.1); CREATININE 2.03 mg/dl (0.60-1.40); POTASSIUM 3.6 mmol/L (3.5-5.1)
--- NOTE | 2017-10-20 11:56 | DIAGNOSTIC IMAGING REPORT ---
T-TUBE CHOLANGIOGRAM CLINICAL HISTORY: 62 years-old Male presenting with is tube w/n gallbladder. TECHNIQUE: 2 fluoroscopic spot image(s) obtained as part of an intraoperative procedure. COMPARISON: None. FINDINGS/IMPRESSION: A cholecystostomy tube is in place. Contrast was injected through the tube, which appears to opacify the gallbladder. The gallbladder likely contains multiple gallstones. Contrast extends into the gallbladder neck/cystic duct. Please see surgical report for further details. Fluoroscopy dosage (mGy): Not available.. Fluoroscopy time: 0.1 minutes. Number of fluoroscopic spot images: 2. Electronically signed by: Ghassan Dubois M.D. 10/20/2017 11:54 AM Dictated Date/Time: 10/20/2017 11:53 AM
[2017-10-20] MEDS ORDERED: CONSULT PHARMACY PRN (12:46)
[2017-10-20] MEDS ORDERED: AZTREONAM 2000 MG in DEXTROSE 5% 100 ML IV ONE (13:00)
[2017-10-20] MEDS ORDERED: METRONIDAZOLE 500MG / NSS IV ONE (13:01)
[2017-10-20] MEDS ORDERED: AZTREONAM CONSULT ACTIVE PRN ×2 (13:45)
[2017-10-20] MEDS ORDERED: METRONIDAZOLE CONSULT ACTIVE PRN (13:45)
--- NOTE | 2017-10-20 16:40 | Progress Note ---
Medicine Progress Note Date & Time of Visit: Oct 20, 2017 at 12:54. Subjective s/p Cholangiogram this AM in light of low cholecystostomy tube output discussed with Dr. Bagley- Surgeon- tube seems to be withdrawn, only 1 coil of the tube seen in the gallbladder on exam, patient not in distress denies dyspnea, chest pain reports abdominal pain- cramping, relieved by analgesics denies nausea, fever/chills denies other symptoms Objective Last 8 Hrs Date Time Temp Pulse Resp B/P (MAP) Pulse Ox O2 Delivery O2 Flow Rate FiO2 10/20/17 12:29 37.5 72 24 142/64 (90) 97 Room Air 10/20/17 08:00 100 Room Air 10/20/17 07:33 36.9 75 25 146/68 (94) 100 Room Air 10/20/17 07:15 74 20 94 Room Air Physical Exam: General- oriented x 3, not in distress, speaks in sentences with no effort Head- atraumatic Eyes- EOMI, anicteric Neck- supple, no JVD, Lungs- clear breath sounds bilaterally Heart- regular rhythm; no murmur, normal rate Abdomen- normal bowel sounds, mild RUQ tenderness, soft Extremities- no pretibial edema, no calf tenderness Neuro- alert, oriented x 3; no gross focal deficits Skin- warm & dry Laboratory Results: Last 24 Hours Test 10/19/17 16:03 10/19/17 19:59 10/20/17 06:12 10/20/17 07:05 Bedside Glucose 154 mg/dl 274 mg/dl 134 mg/dl Iron Level 43 mcg/dl Total Iron Binding Capacity 168 mcg/dl Transferrin 138 mg/dl Transferrin % Saturation 22 % Test 10/20/17 08:33 10/20/17 08:34 10/20/17 11:53 White Blood Count 12.57 K/uL Red Blood Count 3.06 M/uL Hemoglobin 9.1 g/dL Hematocrit 30.3 % Mean Corpuscular Volume 99.0 fL Mean Corpuscular Hemoglobin 29.7 pg Mean Corpuscular Hemoglobin Concent 30.0 g/dl RDW Standard Deviation 78.2 fL RDW Coefficient of Variation 21.7 % Platelet Count 183 K/uL Mean Platelet Volume 8.7 fL Nucleated RBC Absolute Count (auto) 0.02 K/uL Nucleated Red Blood Cells % 0.1 % Sodium Level 140 mmol/L Potassium Level 3.6 mmol/L Chloride Level 97 mmol/L Carbon Dioxide Level 35 mmol/L Anion Gap 7.0 mmol/L Blood Urea Nitrogen 44 mg/dl Creatinine 2.03 mg/dl Est Creatinine Clear Calc Drug Dose 46.8 ml/min Estimated GFR () 39.3 Estimated GFR (Non- 33.9 BUN/Creatinine Ratio 21.8 Random Glucose 131 mg/dl Calcium Level 8.8 mg/dl Bedside Glucose 121 mg/dl Assessment & Plan Acute on chronic CHF exacerbation H/O Ischemic Cardiomyopathy ECHO: EF: 35-40% as below s/p AICD 07/2017 CXR:Congestive failure versus mild pulmonary edema Venous Doppler: No DVT Scrotal swelling: Small bilateral hydroceles continue to diurese well crea increasing 1.6--> 2.03 continue Lasix 100mg TID hold Zaroxolyn 5mg daily Entresto held for now Cardiology/Nephrology consulted H/O cholecystitis: S/P percutaneous drain followed by General Surgeon while admitted noted to have low output today Cholangiogram showed possible withdrawal of tube patient reporting generalized abdominal discomfort LFTs ok except alk phos 124 -- Dr. Bagley recommends transfer to [facility] for further evaluation and management Dr. Fuentes called, he kindly accepted the patient, also discussed with Dr. Petersen from Hospitalist CAD S/P CABG Denies chest pain continue Aspirin, Co Reg s/p Cardiac Cath in 07/2017, [facility] plan to do staged Coronary Procedures History of atrial fibrillation: Rate controlled Continue Coreg continue Apixaban DM II: Continue ISS, Lantus CKD III: Cr:mid 2s at baseline Cr:1.62>>1.66>>1.62>>1.63>>>1.77>.1.84--> 2.03 Monitor renal function ? Dementia: Continue home dose of donepezil Oral Thrush: Was on Nystatin 5 ml QID PO and Diflucan 200 mg IV daily prior to admission started on 09/30/17 Completed 2 week course of Nystatin, Diflucan H/O C.diff: No on any meds prior to admission Stool for c.diff:Negative B/L Leg wounds Wound care consulted Morbid Obesity: BMI:47 DVT px: on Apixaban Disposition: transfer to [facility] PROCEDURES: T-TUBE CHOLANGIOGRAM CLINICAL HISTORY: 62 years-old Male presenting with is tube w/n gallbladder. TECHNIQUE: 2 fluoroscopic spot image(s) obtained as part of an intraoperative procedure. COMPARISON: None. FINDINGS/IMPRESSION: A cholecystostomy tube is in place. Contrast was injected through the tube, which appears to opacify the gallbladder. The gallbladder likely contains multiple gallstones. Contrast extends into the gallbladder neck/cystic duct. Please see surgical report for further details. Fluoroscopy dosage (mGy): Not available.. Fluoroscopy time: 0.1 minutes. Number of fluoroscopic spot images: 2. Electronically signed by: Ghassan Dubois M.D. ECHO: * The left ventricle is severely dilated. * Ejection Fraction = 35-40%. * The right ventricle is grossly normal size. * The right ventricular systolic function is normal. * Pulmonary hypertension. Estimated pulmonary systolic pressure around 50- 55 mmHG. * There is moderate mitral regurgitation. * There is moderate tricuspid regurgitation. Venous Doppler: No DVT within the right or left lower extremity CXR: Congestive failure versus mild pulmonary edema Testicular USD: 1. Normal testes bilaterally. 2. Normal vascular flow to both testis. 3. Small bilateral hydroceles. Current Inpatient Medications: Current Inpatient Medications Medications (Trade) Dose Ordered Sig/Randa Route Start Time Stop Time Status Last Admin Dose Admin Miscellaneous (Iv Fluids Completed) 1 ea PRN PRN N/A 10/12/17 16:30 10/12/18 16:29 Acetaminophen (Tylenol Tab) 500 mg Q4H PRN PO 10/12/17 17:15 11/11/17 17:14 10/20/17 08:18 500 MG Albuterol Sulfate (Ventolin 0.083% 2.5MG/3ML Neb) 2.5 mg Q4R INH 10/12/17 20:00 11/11/17 19:59 10/20/17 07:15 2.5 MG Aspirin (Aspirin Chew) 81 mg QAM PO 10/13/17 09:00 11/12/17 08:59 10/20/17 08:20 81 MG Bisacodyl (Dulcolax Supp) 10 mg DAILY PRN SD 10/12/17 17:15 11/11/17 17:14 Carvedilol (Coreg Tab) 3.125 mg BIDM PO 10/12/17 17:42 11/11/17 17:59 10/20/17 08:21 3.125 MG Collagenase (Santyl Oint) 1 appln DAILY EXT 10/13/17 09:00 11/12/17 08:59 10/20/17 08:19 1 APPLN Docusate Sodium (coLACE CAP) 100 mg BID PO 10/12/17 21:00 11/11/17 20:59 10/20/17 08:20 100 MG Donepezil HCl (Aricept Tab) 5 mg QAM PO 10/13/17 09:00 11/12/17 08:59 10/20/17 08:20 5 MG Insulin Glargine (Lantus Solostar Pen) 40 units HS SC 10/12/17 21:00 11/11/17 20:59 10/19/17 20:37 40 UNITS Lactobacillus Acidophilus (Floranex Tab) 2 tab BID PO 10/12/17 21:00 11/11/17 20:59 10/20/17 08:20 2 TAB Lidocaine (Lidoderm Patch 5%) 1 patch QAM TD 10/13/17 09:00 11/12/17 08:59 10/20/17 08:22 1 PATCH Magnesium Hydroxide (Milk Of Magnesia Susp) 30 ml DAILY PRN PO 10/12/17 17:15 11/11/17 17:14 Niacin (Niaspan Extended Rel Tab) 1,000 mg HS PO 10/12/17 21:00 11/11/17 20:59 10/19/17 20:34 1,000 MG Pantoprazole Sodium (Protonix Tab) 40 mg DAILYBB PO 10/13/17 06:00 11/12/17 06:59 10/20/17 06:00 40 MG Senna/Docusate Sodium (Senokot S Tab) 1 tab QDL PRN PO 10/12/17 17:15 11/11/17 17:14 10/19/17 08:08 1 TAB Apixaban (Eliquis Tab) 5 mg Q12 PO 10/12/17 21:00 11/11/17 20:59 10/20/17 08:21 5 MG Polyethylene (Miralax Powder Packet) 17 gm QDL PRN PO 10/12/17 17:15 11/11/17 17:14 Miscellaneous (Remove Lidoderm Patch) 1 ea DAILY@ N/A 10/12/17 21:00 11/11/17 20:59 10/19/17 20:34 1 EA Sodium Biphosphate/ Sodium Phosphate (Fleet Enema) 132 ml DAILY PRN SD 10/12/17 17:30 11/11/17 17:29 Glucose (Glucose 40% Gel) 15-30 GRAMS 15 GRAMS... UD PRN PO 10/12/17 18:00 11/11/17 17:59 Glucose (Glucose Chew Tab) 4-8 Tablets 4 Tabl... UD PRN PO 10/12/17 18:00 11/11/17 17:59 Dextrose (Dextrose 50% 50ML Syringe) 25-50ML OF 50% DW IV FOR... UD PRN IV 10/12/17 18:00 11/11/17 17:59 Glucagon (Glucagon Inj) 1 mg UD PRN SQ 10/12/17 18:00 11/11/17 17:59 Insulin Aspart (novoLOG ASPART) SLIDING SCALE If C... ACHS SC 10/12/17 21:00 11/11/17 20:59 10/19/17 20:37 3 UNITS Enteral Nutritional Formula (Boost Pudding) 1 cup BIDM PO 10/14/17 07:30 11/13/17 07:29 10/20/17 08:19 1 CUP Heparin Sodium (Porcine) (Heparin 10 Unit/ ml 5 ml Flush) 1 ml PRN PRN FLUSH 10/14/17 01:00 11/13/17 00:59 10/20/17 06:03 1 ML Furosemide 100 mg/ Syringe 10 ml @ 4 mls/min Q8 IV 10/17/17 14:00 11/16/17 13:59 10/20/17 12:49 4 MLS/MIN Morphine Sulfate (MoRPHine SULFATE INJ) 2 mg Q4H PRN IV 10/17/17 17:45 10/30/17 13:14 10/20/17 10:12 2 MG Miscellaneous Information (Pharmacy Consult) 1 ea UD PRN N/A 10/20/17 12:46 11/19/17 12:45 UNV Aztreonam 2000 mg/ Dextrose 110 ml @ 110 mls/hr NOW ONCE IV 10/20/17 13:00 10/20/17 13:59 Metronidazole 500 mg/Prmx 100 ml @ 100 mls/hr NOW ONCE IV 10/20/17 13:01 10/20/17 14:00
--- NOTE | 2017-10-20 16:58 | Discharge Instructions ---
Discharge Instructions Date of Service Oct 20, 2017. Admission Reason for Admission: Fluid Overload, Scrotal Edema Discharge Discharge Diagnosis / Problem: POSSIBLE MALPOSITIONED CHOLECYSTOTOMY TUBE, CHF EXACERBATION Discharge Goals Goal(s): Diagnostic testing, Therapeutic intervention Activity Recommendations Activity Level: Assistance Required Therapies: Physical Therapy, Occupational Therapy . Additional Information Patient informed of condition: Yes Advance Directives: No (UNKNOWN) DNR: No (PATIENT IS FULL CODE) Level of Care: Other ([facility]) Communicable Disease: No Prognosis: Other (GUARDED) Instructions / Follow-Up Instructions / Follow-Up PLEASE REFER TO ACCOMPANYING DISCHARGE SUMMARY FOR FURTHER DETAILS. Current Hospital Diet Patient's current hospital diet: AHA Diet (Heart Healthy), Low Sodium Diet (2gm Na), Diabetes Type 2 Diet Discharge Diet Recommended Diet: AHA Diet (Heart Healthy), Low Sodium Diet (2gm Na) Procedures Procedures Performed: CHOLANGIOGRAM, CHEST XRAY, VENOUS US, TESTICULAR US Pending Studies Studies pending at discharge: yes List of pending studies: FURTHER MANAGEMENT PER [facility] Physician Orders On Transfer Special Precautions: PLEASE REFER TO ACCOMPANYING DISCHARGE SUMMARY FOR FURTHER DETAILS. Medical Emergencies . Who to Call and When: Medical Emergencies: If at any time you feel your situation is an emergency, please call 911 immediately. . Non-Emergent Contact Non-Emergency issues call your: Primary Care Provider Call Non-Emergent contact if: you have a fever, your pain is not controlled, your pain is worsening, wound has increased drainage, wound has increased redness, wound has increased pain, you have any medication questions . . "Provider Documentation" section prepared by William Stovall. . Core Measure Problem Core Measures: None
--- NOTE | 2017-10-20 17:03 | Discharge Summary ---
Discharge Summary Date of Service Oct 20, 2017. Discharge Summary Admission Date: Oct 13, 2017 at 11:13 Discharge Date: Oct 20, 2017 Discharge Disposition: Acute care facility Principal Diagnosis: H/O cholecystitis: S/P percutaneous drain Possible Malpositioned Percutaneous Drain; CHF exacerbation Secondary Diagnoses/Problems: Please refer to hospital course below Procedures: T-TUBE CHOLANGIOGRAM CLINICAL HISTORY: 62 years-old Male presenting with is tube w/n gallbladder. TECHNIQUE: 2 fluoroscopic spot image(s) obtained as part of an intraoperative procedure. COMPARISON: None. FINDINGS/IMPRESSION: A cholecystostomy tube is in place. Contrast was injected through the tube, which appears to opacify the gallbladder. The gallbladder likely contains multiple gallstones. Contrast extends into the gallbladder neck/cystic duct. Please see surgical report for further details. Fluoroscopy dosage (mGy): Not available.. Fluoroscopy time: 0.1 minutes. Number of fluoroscopic spot images: 2. Electronically signed by: Ghassan Dubois M.D. ECHO: * -- Conclusions -- * The left ventricle is severely dilated. * Ejection Fraction = 35-40%. * The right ventricle is grossly normal size. * The right ventricular systolic function is normal. * Pulmonary hypertension. Estimated pulmonary systolic pressure around 50-55 mmHG. * There is moderate mitral regurgitation. * There is moderate tricuspid regurgitation. TESTICULAR US, VENOUS DOPPLER STUDY, CXR Consultations: CARDIOLOGY, GENERAL SURGERY, NEPHROLOGY Pending Studies/Follow-Up: Please refer to hospital course below. Macy refer to separate medical reconciliation sheet for updated medication list. Medication Reconciliation Continued Medications: Acetaminophen (Tylenol) 500 Mg Tab 500 MG PO Q4H PRN for Pain or Fever, TAB Albuterol Sulf (Albuterol Sulfate) 2.5 Mg/3 Ml Nebu 2.5 MG INH Q4H Apixaban (Eliquis) 5 Mg Tab 5 MG PO Q12, TAB Aspirin (Aspirin Chewable) 81 Mg Chew 81 MG PO QAM Bisacodyl (Bisacodyl Laxative) 10 Mg Sup 10 MG RE DAILY PRN for Constipation Carvedilol (Coreg) 3.125 Mg Tab 3.125 MG PO BIDM, TAB Collagenase (Santyl) 250 Unit/Gm Oin 1 APPLN TOP DAILY AREA: BILAT INNER THIGHS. CLEANSE, APPLY THIN LAYER, COVER WITH FOAM. Docusate Sodium (Docusate Sodium) 100 Mg Cap 100 MG PO BID for 7 Days, #14 CAP Donepezil Hydrochloride (Donepezil Hcl) 5 Mg Tab 5 MG PO QAM for 90 Days, #90 TAB 3 Refills Insulin Aspart (Novolog Flexpen) 100 Units/Ml Inj Unknown Dose SC ACHS SLIDING SCALE: BSG < 70 = HYPOGLYCEMIA PROTOCOL BSG 70-130 = 0 UNITS BSG 131-180 = 2 UNITS BSG 181-240 = 4 UNITS BSG 241-300 = 6 UNITS BSG 301-350 = 8 UNITS BSG 351-400 = 10 UNITS BSG > 400 = 12 UNITS AND CALL Insulin Glargine (Lantus) 100 Unit/Ml Inj 40 UNITS SC HS, VIAL Lactobacillus Acidophilus (Lactinex) Tab 2 TAB PO BID, TAB Lidocaine (Lidoderm Patch 5%) 1 Ea Tdsy 1 PATCH TOP QAM Magnesium Hydroxide (Milk of Magnesia) 30 Ml Susp 30 ML PO DAILY PRN for Constipation Niacin Ext Rel (Niaspan Ext Rel) 1,000 Mg Tabcr 1000 MG PO HS, TAB Nystatin (Nystatin Suspension) 1 Ml Susp 212265 UNITS PO QID STARTED 09/30/17 Pantoprazole (Protonix) 40 Mg Tab 40 MG PO DAILYBB, #30 TAB Polyethylene Glycol 3350 (Miralax) 1 Pow Pow 17 GM PO QDL PRN for Constipation, #527 GM Senna/Docusate Sod (Senokot S) 1 Tab Tab 1 TAB PO QDL PRN for Constipation, TAB Sodium Phosphate/Biphosphate (Fleet Enema) Cleo [address] DAILY PRN for Constipation, BTL Discontinued Medications: Bumetanide (Bumex) 2 Mg Tab 2 MG PO BID, TAB started this med 10/11/17 PM; previously had been on Lasix 40mg PO daily 09/30ur 10/07, then increased to Lasix 80mg PO daily on 10/07 which was d/c'd and changed to Bumex 2mg PO BID on 10/11 PM Fluconazole In Nacl (Fluconazole In Nacl) 1 Inj Inj 200 MG IV. DAILY STARTED 09/30/17, STOP 10/27/17. Insulin Aspart (Novolog Flexpen) 100 Units/Ml Inj 6 UNITS SC TIDM Admission Information HPI (per Admitting provider): The patient is a 62-year-old male with an ischemic cardiomyopathy, ejection fraction 25% to 30%, who suffered a polymorphic ventricular tachycardia cardiac arrest while hospitalized to manage cholecystitis in [facility] and had implantation of a defibrillator subsequently during his hospitalization stay and workup in August 2017. Patient also s/p percutaneous drain of the gallbladder for the cholecystitis. As per family member, patient was supposed to get re-evaluated by outpatient cardiology to interrogate defibrillator before medical clearance for possible cholecystectomy. Patient continues to have the percutaneous drain. Patient also had subsequent medical evaluations at [facility] in [place] where patient had some form of scope down his throat as per patient and his family members for evaluation of chronic cough which is worsen by speaking. And more recently have been in rehab at [facility] where patient has been attempting ambulation with walker. As per review of [facility] records, patient was sent to the ER because of shortness of breath and also because of increased fluid overload of lower extremities and scrotal edema. When assessed in the ED, patient did not appear to have respiratory distress and speaking comfortably in full sentences. However, chest X ray shows Mild interstitial basilar thickening, right greater than left and radiographic impression of asymmetric pulmonary edema. Chest X ray also shows present of defibrillator and PICC line. However patient and patient's family primarily concerned of the swelling below the waist, the continued presence of the percutaneous drain, and general overall decline before previous hospitalization Physical Exam (per Admitting): General Appearance: no apparent distress, + obese Head: normocephalic, atraumatic Eyes: normal inspection, EOMI, sclerae normal ENT: normal ENT inspection, hearing grossly normal, pharynx normal Neck: supple, no JVD, trachea midline Respiratory/Chest: chest non-tender, lungs clear, no respiratory distress, no accessory muscle use Cardiovascular: regular rate, rhythm, no JVD Abdomen/GI: normal bowel sounds, non tender, soft, + pertinent finding ( percutanous drain over gallbladder area) Back: + pertinent finding (patient is very large and diifficulty to sit up or turn over for full skin exam of back) Extremities/Musculoskelatal: + pertinent finding (bilateral lower extremity edema and red rash on legs) Neurologic/Psych: alert, oriented x 3 Skin: + pertinent finding (bilateral lower extremity edema and red rash on legs) Hospital Course Acute on chronic CHF exacerbation H/O Ischemic Cardiomyopathy ECHO: EF: 35-40% as below s/p AICD 07/2017 CXR:Congestive failure versus mild pulmonary edema Venous Doppler: No DVT Scrotal swelling: Small bilateral hydroceles continue to diurese well crea increasing 1.6--> 2.03 continue Lasix 100mg TID hold Zaroxolyn 5mg daily Entresto held for now Cardiology/Nephrology consulted H/O cholecystitis: S/P percutaneous drain followed by General Surgeon while admitted noted to have low output today 10/20/17 Cholangiogram showed possible withdrawal of tube patient reporting generalized abdominal discomfort LFTs ok except alk phos 124 -- Dr. Bagley recommends transfer to [facility] for further evaluation and management Dr. Fuentes called, he kindly accepted the patient, also discussed with Dr. Petersen from Hospitalist CAD S/P CABG Denies chest pain continue Aspirin, Co Reg s/p Cardiac Cath in 07/2017, [facility] plan to do staged Coronary Procedures History of atrial fibrillation: Rate controlled Continue Coreg continue Apixaban DM II: Continue ISS, Lantus CKD III: Cr:mid 2s at baseline Cr:1.62>>1.66>>1.62>>1.63>>>1.77>.1.84--> 2.03 Monitor renal function ? Dementia: Continue home dose of donepezil Oral Thrush: Was on Nystatin 5 ml QID PO and Diflucan 200 mg IV daily prior to admission started on 09/30/17 Completed 2 week course of Nystatin, Diflucan H/O C.diff: No on any meds prior to admission Stool for c.diff:Negative B/L Leg wounds Wound care consulted Morbid Obesity: BMI:47 DVT px: on Apixaban Disposition: transfer to [facility] PROCEDURES: T-TUBE CHOLANGIOGRAM CLINICAL HISTORY: 62 years-old Male presenting with is tube w/n gallbladder. TECHNIQUE: 2 fluoroscopic spot image(s) obtained as part of an intraoperative procedure. COMPARISON: None. FINDINGS/IMPRESSION: A cholecystostomy tube is in place. Contrast was injected through the tube, which appears to opacify the gallbladder. The gallbladder likely contains multiple gallstones. Contrast extends into the gallbladder neck/cystic duct. Please see surgical report for further details. Fluoroscopy dosage (mGy): Not available.. Fluoroscopy time: 0.1 minutes. Number of fluoroscopic spot images: 2. Electronically signed by: Ghassan Dubois M.D. ECHO: * The left ventricle is severely dilated. * Ejection Fraction = 35-40%. * The right ventricle is grossly normal size. * The right ventricular systolic function is normal. * Pulmonary hypertension. Estimated pulmonary systolic pressure around 50- 55 mmHG. * There is moderate mitral regurgitation. * There is moderate tricuspid regurgitation. Venous Doppler: No DVT within the right or left lower extremity CXR: Congestive failure versus mild pulmonary edema Testicular USD: 1. Normal testes bilaterally. 2. Normal vascular flow to both testis. 3. Small bilateral hydroceles. Total time spent on discharge = 70 minutes This includes examination of the patient, discharge planning, medication reconciliation, and communication with other providers. Discharge Instructions Discharge Instructions Date of Service Oct 20, 2017. Admission Reason for Admission: Fluid Overload, Scrotal Edema Discharge Discharge Diagnosis / Problem: POSSIBLE MALPOSITIONED CHOLECYSTOTOMY TUBE, CHF EXACERBATION Discharge Goals Goal(s): Diagnostic testing, Therapeutic intervention Activity Recommendations Activity Level: Assistance Required Therapies: Physical Therapy, Occupational Therapy . Additional Information Patient informed of condition: Yes Advance Directives: No (UNKNOWN) DNR: No (PATIENT IS FULL CODE) Level of Care: Other ([facility]) Communicable Disease: No Prognosis: Other (GUARDED) Instructions / Follow-Up Instructions / Follow-Up PLEASE REFER TO ACCOMPANYING DISCHARGE SUMMARY FOR FURTHER DETAILS. Current Hospital Diet Patient's current hospital diet: AHA Diet (Heart Healthy), Low Sodium Diet (2gm Na), Diabetes Type 2 Diet Discharge Diet Recommended Diet: AHA Diet (Heart Healthy), Low Sodium Diet (2gm Na) Procedures Procedures Performed: CHOLANGIOGRAM, CHEST XRAY, VENOUS US, TESTICULAR US Pending Studies Studies pending at discharge: yes List of pending studies: FURTHER MANAGEMENT PER [facility] Physician Orders On Transfer Special Precautions: PLEASE REFER TO ACCOMPANYING DISCHARGE SUMMARY FOR FURTHER DETAILS. Medical Emergencies . Who to Call and When: Medical Emergencies: If at any time you feel your situation is an emergency, please call 911 immediately. . Non-Emergent Contact Non-Emergency issues call your: Primary Care Provider Call Non-Emergent contact if: you have a fever, your pain is not controlled, your pain is worsening, wound has increased drainage, wound has increased redness, wound has increased pain, you have any medication questions . . "Provider Documentation" section prepared by William Stovall. . Core Measure Problem Core Measures: None
[2017-10-20] MEDS ORDERED: METRONIDAZOLE 500MG / NSS IV SCH ×2 (18:00→19:00)
[2017-10-20] MEDS ORDERED: AZTREONAM 2000 MG in DEXTROSE 5% 100 ML IV SCH (20:00)
[2017-10-20] MEDS: NIASPAN 500 MG TABCR PO SCH (21:10)
[2017-10-20] MEDS: INSULIN GLARGINE SOLOSTAR 100 UNITS/ML 3 ML PEN SC SCH (21:13)
[2017-10-21 17:53] LABS: ALBUMIN 2.6 G/DL (3.8-4.8); GAMMA GLOBULIN 1.2 G/DL (0.8-1.7); TOTAL PROTEIN 5.8 G/DL (6.2-8.3)
== END 2017-10-20 21:15 | disposition short-term general hospital (02) | DRG 291 ==
LOC: EDBD 12:28 → C.EDC 12:29 → C.2E 16:22 → UNDOADMOB 16:22 → ENRESERV 16:44 → CMPBEDREQ 17:27 → INTOOBSV 10-13 11:13 → OBSVTOIN 10-13 11:13
PROVIDERS: ADMIT Hospitalist; ATTEND Internal Medicine
DX: I13.0 Hypertensive heart and chronic kidney disease with heart failure and stage 1 through stage 4 chronic kidney disease, or unspecified chronic kidney disease (principal); I50.23 Acute on chronic systolic (congestive) heart failure; B37.0 Candidal stomatitis; Z68.42 Body mass index [BMI] 45.0-49.9, adult; Z87.891 Personal history of nicotine dependence; Z79.82 Long term (current) use of aspirin; Z79.4 Long term (current) use of insulin; I25.5 Ischemic cardiomyopathy; Z82.49 Family history of ischemic heart disease and other diseases of the circulatory system; Z79.01 Long term (current) use of anticoagulants; I25.10 Atherosclerotic heart disease of native coronary artery without angina pectoris; N43.3 Hydrocele, unspecified; Z95.1 Presence of aortocoronary bypass graft; I48.91 Unspecified atrial fibrillation; N18.3 Chronic kidney disease, stage 3 (moderate); E11.22 Type 2 diabetes mellitus with diabetic chronic kidney disease; F03.90 Unspecified dementia, unspecified severity, without behavioral disturbance, psychotic disturbance, mood disturbance, and anxiety; S81.801A Unspecified open wound, right lower leg, initial encounter; S81.802A Unspecified open wound, left lower leg, initial encounter; E66.01 Morbid (severe) obesity due to excess calories; R60.1 Generalized edema; E11.40 Type 2 diabetes mellitus with diabetic neuropathy, unspecified; Z95.810 Presence of automatic (implantable) cardiac defibrillator